=== PATIENT | female | born 1960 | race Caucasian/White ===

== ENCOUNTER 2016-05-21 18:03 | Observation (INO) ==
[2016-05-21] MEDS ORDERED: methylPREDNISolone 125 MG/2 ML VIAL IVP ONE (18:45)
[2016-05-21] MEDS ORDERED: Ipratropium/Albuterol Neb 3 ML IH ONE (18:45)
--- NOTE | 2016-05-21 19:05 | Emergency Department Note ---
Disposition Clinical Impression: Acute exacerbation of chronic obstructive pulmonary disease Disposition: Admitted As Inpatient Condition: Fair Referrals: Rebecca Nguyễn MD [Primary Care Provider] - Forms: ED Satisfaction Letter Time of Disposition: 21:46 SOB HPI - General Chief Complaint: ED Shortness of Breath/Dyspnea Stated Complaint: Nicole Time Seen by Provider: 05/21/16 18:45 Source: patient Mode of arrival: ambulatory Limitations: no limitations Nursing Notes Reviewed: Yes Vital Signs Reviewed: Yes - History of Present Illness 56-year-old female with history of COPD, does take oxygen at night occasionally and when she needs it. But is not oxygen dependent at baseline, he presents with shortness of breath and wheeze, she is diffuse wheezing bilaterally. Patient has her exposure to her son who was diagnosed with pneumonia 3 days ago , has been coughing. Patient states that she has been coughing and has not had productive cough with yellow, productive sputum throughout the day. Reports subjective fevers, worsening shortness of breath controlled with inhalers. Has required more oxygen than baseline Pt Subjective Complaint: shortness of breath Onset (ago): day(s) (3) Severity: mild Consistency/Duration: intermittent Improves with: nothing Worsens with: nothing Known history of: COPD Associated symptoms: Reports: fever, cough, wheezing, sputum production. Denies : chest pain, pain with inspiration Treatment prior to arrival: none - Related Data Home Medications Medication Instructions Recorded Confirmed Ibuprofen [Motrin] 800 mg PO Q8HR PRN #0 08/04/15 03/16/16 Albuterol Sulfate [Albuterol 2 puff IH Q4HR PRN 09/16/15 03/16/16 Inhaler] Calcium Carbonate [Calcium] 1,000 mg PO BID 09/16/15 03/16/16 FLUoxetine HCl [Prozac] 20 mg PO QAM 11/20/15 03/16/16 Famotidine [Pepcid] 40 mg PO BID 11/20/15 03/16/16 Fluticasone Propionate Nasal 50 mcg NS DAILY 11/20/15 03/16/16 [Flonase] Gabapentin [Neurontin] 800 mg PO Q6H 11/20/15 03/16/16 Insulin ASPART [Novolog Flexpen] 11 unit SQ BID PRN 11/20/15 03/16/16 Metformin HCl [Glucophage] 1,000 mg PO BID 11/20/15 03/16/16 Montelukast [Singulair] 10 mg PO HS 11/20/15 03/16/16 Pravastatin Sodium [Pravachol] 80 mg PO DAILY 11/20/15 03/16/16 Aspirin 81 mg PO DAILY 01/21/16 03/16/16 Tiotropium [Spiriva] 18 mcg IH DAILY 01/21/16 03/16/16 Fluticasone/Salmeterol [Advair 2 puff IH BID 03/16/16 03/16/16 500-50 Diskus] Ipratropium/Albuterol Neb [Duoneb] 3 ml IH TID 03/16/16 03/16/16 Oxygen 2 l .ROUTE AD 05/21/16 05/21/16 Previous Rx's Medication Instructions Recorded Alprazolam [Xanax 1 MG Tablet] 1 mg PO DAILY PRN #7 tablet 03/18/16 HYDROcodone/Acet 7.5/325 mg [Julian 1 tab PO TID PRN #20 tablet 03/18/16 7.5-325 mg] Naproxen [Naprosyn] 500 mg PO BID 10 Days 04/04/16 Allergies Allergy/AdvReac Type Severity Reaction Status Date / Time ketorolac [From Toradol] Allergy Hives Verified 05/21/16 21:35 Sulfa (Sulfonamide Allergy Hives Verified 05/21/16 21:35 Antibiotics) tramadol Allergy Hives Verified 05/21/16 21:35 venom-wasp Allergy Hives Verified 04/04/16 09:50 latex AdvReac Blister Verified 04/04/16 09:50 Review of Systems: A 14 point ROS was obtained and was negative except as per below or as documented in the HPI. Constitutional: Denies: fever, chills, weakness, weight change Eyes: Denies: eye pain, eye discharge, vision change ENT: Denies: ear pain, throat pain, hearing loss, epistaxis, congestion, Cardiovascular: Denies: chest pain, palpitations, dyspnea on exertion, edema, syncope Respiratory: cough, dyspnea, wheezes Denies:, hemoptysis, stridor Gastrointestinal: Denies: abdominal pain, nausea, vomiting. diarrhea, constipation, hematemesis, hematochezia Genitourinary: Denies: urgency, dysuria, frequency, hematuria Musculoskeletal: Denies: back pain, neck pain, arthralgia, myalgia Integumentary: Denies: rash, abrasion, lesions Neurological: Denies: headache, weakness, numbness, paresthesias, confusion, abnormal gait Psychiatric: Denies: anxiety, depression, suicidal thoughts, homicidal thoughts , Endocrine: Denies: fatigue Hematological/Lymphatic: Denies: easy bleeding, easy bruising Allergic/Immunologic: Denies: facial swelling, urticaria All systems ED: reviewed and negative except as stated. Past Medical History - Past Medical History Attestation: Yes The following information was validated with the patient. 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 CV: RRR, normal S1 and S2, no m/g/r, Pulses +2 Rad, +2 DP/PT Abdomen: Soft, NTND, no hepatosplenomegaly, no hernias, Negative Rovsing's sign , Negative Helms's sign Back: normal inspection, no tenderness to palpation, Negative CVA tenderness bilaterally Neuro: A&O3, CN II-XII grossly intact bilaterally, no motor or sensory deficits bilaterally, gait normal, GCS 15 [id number] Ext: normal inspection, symmetric Active and Passive ROM UE and LE bilaterally , no pedal edema bilaterally Psych: normal mood, normal affect Skin: No rashes, skin warm, dry, intact - General Limitations: no limitations General appearance: alert, in distress Course Course Narrative: 56-year-old female with shortness breath and wheezing, COPD workup, lactate blood cultures, basic labs chest x-ray reassessed - Reevaluation(s) Reevaluation #1: 56yof is essentially unremarkable, she does still have diffuse inspiratory and expiratory wheezes, her sat is 95% with 2 L Time: 21:00 Reevaluation #2: Admitted to for acute exacerbation of COPD, ABG drawn on patient, this was sent down for evaluation of ABG However she does not appear acidotic on her BMP. Time: 21:46 Vital Signs Temperature 98.2 F 05/21/16 18:04 Pulse Rate 110 05/21/16 18:04 Respiratory Rate 24 05/21/16 18:04 Blood Pressure 131/86 05/21/16 18:04 O2 Sat by Pulse Oximetry 96 05/21/16 18:04 Temperature 98.2 F 05/21/16 18:04 Pulse Rate 83 05/21/16 20:36 Respiratory Rate 20 05/21/16 20:36 Blood Pressure 109/68 05/21/16 20:36 O2 Sat by Pulse Oximetry 99 05/21/16 20:36 Oxygen Delivery Oxygen Delivery Nasal Cannula Shortness of Breath/Dyspnea - [facility] Narrative Medical decision making narrative: 56yof female shortness of breath and wheeze, still symptomatically and wheezy after her DuoNeb treatments 3 and slightly Medrol, admitted for acute COPD exacerbation - Differential Diagnosis Likely: acute exacerbation of chronic obstructive airways disease, congestive heart failure, pulmonary embolism - Medical Records Medical records reviewed: Yes I reviewed the patient's medical records. - Lab Data Lab results reviewed: Yes I reviewed the patient's lab results. Result diagrams: 05/21/16 18:57 05/21/16 18:57 Lab Results 05/21/16 05/21/16 05/21/16 Range/Units 18:57 18:57 18:57 WBC 11.0 (4.3-11.1) K/mcL RBC 4.96 (3.82-4.97) M/mcL Hgb 13.5 (11.5-15.4) g/dL Hct 41.1 (35.3-44.9) % MCV 82.9 L (83.0-100.0) fL MCH 27.2 L (28.0-33.3) pg MCHC 32.8 (31.6-35.5) g/dL RDW 15.5 H (11.5-14.5) % Plt Count 431 H (140-400) K/mcL MPV 10.4 (9.4-12.4) fL Immature Gran % 0.4 (0-4) % Seg Neutrophils % 52.3 % Lymphocytes % 26.8 % Monocytes % 11.8 % Eosinophils % 8.1 % Basophils % 0.6 % Neutrophils # 5.7 (1.6-8.9) K/mcL Lymphocytes # 2.9 (0.6-4.6) K/mcL Monocytes # 1.3 (0.0-1.3) K/mcL Eosinophils # 0.9 H (0.0-0.6) K/mcL Basophils # 0.1 (0.0-0.2) K/mcL PT 11.5 (9.4-12.1) Seconds INR 1.1 APTT 32.7 (26.0-36.0) Seconds Sodium 141 (136-145) mEq/L Potassium 3.4 L (3.5-4.5) mEq/L Chloride 107 (98-109) mEq/L Carbon Dioxide 25 (19-29) mEq/L BUN 13 (7-20) mg/dL Creatinine 0.66 (0.57-1.11) mg/dL Est GFR ( Amer) > 60 (> 60) Est GFR (Non-Af Amer) > 60 (> 60) BUN/Creatinine Ratio 20 (6-26) Glucose 77 (70-99) mg/dL Calculated Osmolality 291 (280-300) Lactic Acid (0.5-2.2) mmol/L Calcium 10.1 (8.6-10.8) mg/dL Troponin I (0-0.03) ng/mL B-Natriuretic Peptide (0-100) pg/mL 05/21/16 05/21/16 05/21/16 Range/Units 18:57 18:57 18:57 WBC (4.3-11.1) K/mcL RBC (3.82-4.97) M/mcL Hgb (11.5-15.4) g/dL Hct (35.3-44.9) % MCV (83.0-100.0) fL MCH (28.0-33.3) pg MCHC (31.6-35.5) g/dL RDW (11.5-14.5) % Plt Count (140-400) K/mcL MPV (9.4-12.4) fL Immature Gran % (0-4) % Seg Neutrophils % % Lymphocytes % % Monocytes % % Eosinophils % % Basophils % % Neutrophils # (1.6-8.9) K/mcL Lymphocytes # (0.6-4.6) K/mcL Monocytes # (0.0-1.3) K/mcL Eosinophils # (0.0-0.6) K/mcL Basophils # (0.0-0.2) K/mcL PT (9.4-12.1) Seconds INR APTT (26.0-36.0) Seconds Sodium (136-145) mEq/L Potassium (3.5-4.5) mEq/L Chloride (98-109) mEq/L Carbon Dioxide (19-29) mEq/L BUN (7-20) mg/dL Creatinine (0.57-1.11) mg/dL Est GFR ( Amer) (> 60) Est GFR (Non-Af Amer) (> 60) BUN/Creatinine Ratio (6-26) Glucose (70-99) mg/dL Calculated Osmolality (280-300) Lactic Acid 0.9 (0.5-2.2) mmol/L Calcium (8.6-10.8) mg/dL Troponin I 0.00 (0-0.03) ng/mL B-Natriuretic Peptide 10 (0-100) pg/mL - Radiology Data Radiology results reviewed: Yes I reviewed the patient's radiology results. Chest X-Ray 05/21/16 18:45 IMPRESSION: COPD with no acute finding in the chest. D/ / Coleman Lim MD / Coleman Lim MD Interpreting Provider: Coleman Lim MD - EKG Data EKG attestation: Yes I reviewed and interpreted this EKG. EKG shows normal: Reports: sinus rhythm (5 bpm ID [id number] QRS 76 QTc 405 ( elevations or depressions.) Rate: Reports: tachycardia Rhythm: Reports: NSR Shirley/QRS: Reports: normal Interpretation: Reports: no acute changes, unchanged when compared to prior tracing (date) - Core Measures AMI Core Measures Followed: No Measure Exclusions: not indicated
[2016-05-21 19:23] LABS: INR 1.1; Prothrombin Time 11.5 Seconds (9.4-12.1)
[2016-05-21 19:25] LABS: Activated Partial Thrombo Time 32.7 Seconds (26.0-36.0)
[2016-05-21 19:33] LABS: BUN/Creatinine Ratio 20 (6-26); Blood Urea Nitrogen 13 mg/dL (7-20); Calcium 10.1 mg/dL (8.6-10.8); Carbon Dioxide 25 mEq/L (19-29); Chloride 107 mEq/L (98-109); Glucose 77 mg/dL (70-99); Osmolality,Calculated 291 (280-300); Potassium 3.4 mEq/L (3.5-4.5); Sodium 141 mEq/L (136-145); eGFR For African Americans > 60 (> 60); eGFR For Non-African Americans > 60 (> 60)
--- NOTE | 2016-05-21 20:02 | Emergency Department Note ---
Disposition Clinical Impression: Acute exacerbation of chronic obstructive pulmonary disease Disposition: Admitted As Inpatient Condition: Fair General Adult HPI - General Chief complaint: ED Shortness of Breath/Dyspnea Stated complaint: Nicole Time Seen by Provider: 05/21/16 18:45 Source: patient Limitations: no limitations - History of Present Illness Pain Scale: 7 - Related Data Home Medications Medication Instructions Recorded Confirmed Ibuprofen [Motrin] 800 mg PO Q8HR PRN #0 08/04/15 05/21/16 Albuterol Sulfate [Albuterol 2 puff IH Q4HR PRN 09/16/15 05/21/16 Inhaler] Calcium Carbonate [Calcium] 1,000 mg PO BID 09/16/15 05/21/16 FLUoxetine HCl [Prozac] 40 mg PO QAM 11/20/15 05/21/16 Famotidine [Pepcid] 40 mg PO BID 11/20/15 05/21/16 Fluticasone Propionate Nasal 50 mcg NS DAILY 11/20/15 05/21/16 [Flonase] Gabapentin [Neurontin] 800 mg PO QID 11/20/15 05/21/16 Insulin ASPART [Novolog Flexpen] 2 - 11 unit SQ BID PRN 11/20/15 05/21/16 Metformin HCl [Glucophage] 1,000 mg PO BID 11/20/15 05/21/16 Montelukast [Singulair] 10 mg PO HS 11/20/15 05/21/16 Pravastatin Sodium [Pravachol] 80 mg PO DAILY 11/20/15 05/21/16 Aspirin 81 mg PO DAILY 01/21/16 05/21/16 Tiotropium [Spiriva] 18 mcg IH DAILY 01/21/16 05/21/16 Fluticasone/Salmeterol [Advair 2 puff IH BID 03/16/16 05/21/16 500-50 Diskus] Ipratropium/Albuterol Neb [Duoneb] 3 ml IH TID 03/16/16 05/21/16 Oxygen 2 l .ROUTE AD 05/21/16 05/21/16 Previous Rx's Medication Instructions Recorded Alprazolam [Xanax 1 MG Tablet] 1 mg PO DAILY PRN #7 tablet 03/18/16 HYDROcodone/Acet 7.5/325 mg [Winnie 1 tab PO TID PRN #20 tablet 03/18/16 7.5-325 mg] Naproxen [Naprosyn] 500 mg PO BID 10 Days 04/04/16 Allergies Allergy/AdvReac Type Severity Reaction Status Date / Time ketorolac [From Toradol] Allergy Hives Verified 05/21/16 21:35 Sulfa (Sulfonamide Allergy Hives Verified 05/21/16 21:35 Antibiotics) tramadol Allergy Hives Verified 05/21/16 21:35 venom-wasp Allergy Hives Verified 04/04/16 09:50 latex AdvReac Blister Verified 04/04/16 09:50 Past Medical History - Past Medical History Medical history: Reports: diabetes, GERD, hyperlipidemia, arthritis, osteoporosis, thyroid disease, migraine, kidney stones, COPD Surgical history: Reports: cataract, colectomy (partial), orthopedic, other ( cervical spine fusion) Psychiatric history: Reports: anxiety, depression 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 Baron. Patient presents with a complaint of shortness of breath. She has history of COPD. Coughing and short of breath and wheezing. When I see her she is already getting some breathing treatments but says she does not feel like she is getting a whole lot better. We will add steroids and we will get a chest x-ray. Disposition will be based on diagnostic results and reevaluation. Time: 20:02 Vital Signs Temperature 98.2 F 05/21/16 18:04 Pulse Rate 110 05/21/16 18:04 Respiratory Rate 24 05/21/16 18:04 Blood Pressure 131/86 05/21/16 18:04 O2 Sat by Pulse Oximetry 96 05/21/16 18:04 Temperature 97.9 F 05/23/16 07:55 Pulse Rate 105 05/23/16 07:55 Respiratory Rate 16 05/23/16 07:55 Blood Pressure 120/78 05/23/16 07:55 O2 Sat by Pulse Oximetry 95 05/23/16 07:55 Oxygen Delivery Oxygen Delivery Nasal Cannula Medical Decision Making - Lab Data Result diagrams: 05/22/16 03:14 05/23/16 04:30 Lab Results 05/21/16 05/21/16 05/21/16 Range/Units 18:57 18:57 18:57 WBC 11.0 (4.3-11.1) K/mcL RBC 4.96 (3.82-4.97) M/mcL Hgb 13.5 (11.5-15.4) g/dL Hct 41.1 (35.3-44.9) % MCV 82.9 L (83.0-100.0) fL MCH 27.2 L (28.0-33.3) pg MCHC 32.8 (31.6-35.5) g/dL RDW 15.5 H (11.5-14.5) % Plt Count 431 H (140-400) K/mcL MPV 10.4 (9.4-12.4) fL Immature Gran % 0.4 (0-4) % Seg Neutrophils % 52.3 % Lymphocytes % 26.8 % Monocytes % 11.8 % Eosinophils % 8.1 % Basophils % 0.6 % Neutrophils # 5.7 (1.6-8.9) K/mcL Lymphocytes # 2.9 (0.6-4.6) K/mcL Monocytes # 1.3 (0.0-1.3) K/mcL Eosinophils # 0.9 H (0.0-0.6) K/mcL Basophils # 0.1 (0.0-0.2) K/mcL PT 11.5 (9.4-12.1) Seconds INR 1.1 APTT 32.7 (26.0-36.0) Seconds Sodium 141 (136-145) mEq/L Potassium 3.4 L (3.5-4.5) mEq/L Chloride 107 (98-109) mEq/L Carbon Dioxide 25 (19-29) mEq/L BUN 13 (7-20) mg/dL Creatinine 0.66 (0.57-1.11) mg/dL Est GFR ( Amer) > 60 (> 60) Est GFR (Non-Af Amer) > 60 (> 60) BUN/Creatinine Ratio 20 (6-26) Glucose 77 (70-99) mg/dL Calculated Osmolality 291 (280-300) Lactic Acid (0.5-2.2) mmol/L Calcium 10.1 (8.6-10.8) mg/dL Troponin I (0-0.03) ng/mL B-Natriuretic Peptide (0-100) pg/mL 05/21/16 05/21/16 05/21/16 Range/Units 18:57 18:57 18:57 WBC (4.3-11.1) K/mcL RBC (3.82-4.97) M/mcL Hgb (11.5-15.4) g/dL Hct (35.3-44.9) % MCV (83.0-100.0) fL MCH (28.0-33.3) pg MCHC (31.6-35.5) g/dL RDW (11.5-14.5) % Plt Count (140-400) K/mcL MPV (9.4-12.4) fL Immature Gran % (0-4) % Seg Neutrophils % % Lymphocytes % % Monocytes % % Eosinophils % % Basophils % % Neutrophils # (1.6-8.9) K/mcL Lymphocytes # (0.6-4.6) K/mcL Monocytes # (0.0-1.3) K/mcL Eosinophils # (0.0-0.6) K/mcL Basophils # (0.0-0.2) K/mcL PT (9.4-12.1) Seconds INR APTT (26.0-36.0) Seconds Sodium (136-145) mEq/L Potassium (3.5-4.5) mEq/L Chloride (98-109) mEq/L Carbon Dioxide (19-29) mEq/L BUN (7-20) mg/dL Creatinine (0.57-1.11) mg/dL Est GFR ( Amer) (> 60) Est GFR (Non-Af Amer) (> 60) BUN/Creatinine Ratio (6-26) Glucose (70-99) mg/dL Calculated Osmolality (280-300) Lactic Acid 0.9 (0.5-2.2) mmol/L Calcium (8.6-10.8) mg/dL Troponin I 0.00 (0-0.03) ng/mL B-Natriuretic Peptide 10 (0-100) pg/mL Attestation Statement - Attestation Attestation: I, Dr. Rubi, examined this patient [id number] and my medical decision- making was reviewed with Dr. Baron, Resident Physician. I agree with the documented findings, disposition and treatment plan as described except to the extent set forth below. Please see my progress notes for details.
[2016-05-21 20:07] LABS: Basophils # 0.1 K/mcL (0.0-0.2); Basophils % 0.6 %; Eosinophils # 0.9 K/mcL (0.0-0.6); Eosinophils % 8.1 %; Hematocrit 41.1 % (35.3-44.9); Hemoglobin 13.5 g/dL (11.5-15.4); Immature Granulocytes % 0.4 % (0-4); Lymphocytes # 2.9 K/mcL (0.6-4.6); Lymphocytes % 26.8 %; Mean Corpuscular HGB Conc 32.8 g/dL (31.6-35.5); Mean Corpuscular Hemoglobin 27.2 pg (28.0-33.3); Mean Corpuscular Volume 82.9 fL (83.0-100.0); Mean Platelet Volume 10.4 fL (9.4-12.4); Monocytes # 1.3 K/mcL (0.0-1.3); Monocytes % 11.8 %; Neutrophils # 5.7 K/mcL (1.6-8.9); Platelet Count 431 K/mcL (140-400); Red Blood Count 4.96 M/mcL (3.82-4.97); Red Cell Distribution Width 15.5 % (11.5-14.5); Segmented Neutrophils % 52.3 %
[2016-05-21 21:44] LABS: ABG Base Excess 1.9 mEq/L (-2.0 to 3.0); ABG HCO3 26.6 mEQ/L (21-27); ABG Oxygen Saturation 97 % (95-98); ABG PCO2 41 mmHg (35-45); ABG PH 7.42 pH Units (7.32-7.45); ABG PO2 89 mmHg (85-104); ABG TCO2 27.9 mEq/L (20-26)
[2016-05-21 21:45] LABS: Blood Gas FiO2 28 %; Blood Gas Liter Flow 2 L/MIN
[2016-05-21] MEDS ORDERED: *HR* HYDROcodone/Acet 7.5/325 mg TABLET PO ONE (21:51)
[2016-05-21] MEDS ORDERED: Naloxone 0.4 MG/ML INJ IVP PRN (22:36)
[2016-05-21] MEDS ORDERED: Dextrose Gel 15 GM PO PRN ×2 (22:39)
[2016-05-21] MEDS ORDERED: *HR* Dextrose 50 % in Water (Syg) 50 ML SYRINGE IVP PRN (22:39)
[2016-05-21] MEDS ORDERED: D5% in Water 1,000 ML IV PRN (22:39)
--- NOTE | 2016-05-21 22:47 | Internal Med History&Physical ---
Date of Encounter: 05/21/16 Time of Encounter: 10:30 Assessment and Plan (1) Acute exacerbation of chronic obstructive pulmonary disease (COPD) Current visit: Yes Status: Acute Acute on chronic respiratory failure due to exacerbation of COPD. DuoNebs scheduled 4hrs Solumedrol 40mg Q12hr Will monitor off of antibiotics at this time as the patient is afebrile and does not have an elevated white count. Supplemental oxygen as needed. Smoking cessation counseling. Guaifenesin with codeine for cough. 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 of insulin (4) Chronic pain Current visit: Yes Status: Acute Continue home medications Qualifiers: Chronic pain type: other chronic pain Qualified Code(s): G89.29 - Other chronic pain (5) Tobacco abuse Current visit: Yes Status: Acute Smoking cessation counseling ordered (6) Hyperlipemia Current visit: No Status: Chronic Continue home medication Qualifiers: Hyperlipidemia type: unspecified Qualified Code(s): E78.5 - Hyperlipidemia , unspecified (7) DVT prophylaxis Current visit: No Status: Acute SQ Heparin GI Prophylaxis: omeprazole 20mg Internal Medicine - H&P: HPI Chief complaint: shortness of breath Admitted From: Emergency Dept Plans for Post Hospital Care: Home History of present illness: Ms. Taveras is a 56 year old female with PMH significant for COPD on home O2, DM type 2, GERD, HLD, osteoarthritis, osteoporosis, thyroid goiter, migraines, and kidney stones who presented to the emergency department for dyspnea. She states that her symptoms started 3 days ago shortly after she was in close contact with her son was diagnosed with an upper respiratory infection prior to their visit. She states that since then she has been having intermittent fevers and chills, headache, nausea, cough productive of yellow thick sputum, and feeling congested and tight in her chest. She reports having frequent hospitalizations due to COPD exacerbations, and this feels similar to previous episodes. She states that she uses oxygen at night, but does not use oxygen at baseline while home. She denies bowel and bladder symptoms. She reports she occasionally continues to smoke, and her last cigarette was on May 18. Past Med Surg Social Fam HX - Past Medical History Medical history: arthritis (osteoarthritis), COPD, diabetes, GERD, hyperlipidemia, kidney stones, migraine, osteoporosis, thyroid disease Psychiatric history: anxiety, depression - Past Surgical History Surgical History: cataract, colectomy (partial), orthopedic, other (cervical spine fusion) - Social History Smoking Status: Current some day smoker Smokeless Tobacco Status: No Alcohol use: none Drug use: none - Family History Mother Living Status: Hx Family Cardiac Disorders: Yes (CHF) Father Living Status: Hx Family Cardiac Disorders: Yes (DE) Brother Living Status: Hx Family Cancer: Yes (Colon) Sister Living Status: Hx Family Cardiac Disorders: Yes (CHF) Internal Medicine - H&P: Meds Ibuprofen [Motrin] 800 mg PO Q8HR PRN #0 08/04/15 [History] Albuterol Sulfate [Albuterol Inhaler] 2 puff IH Q4HR PRN 09/16/15 [History] Calcium Carbonate [Calcium] 1,000 mg PO BID 09/16/15 [History] FLUoxetine HCl [Prozac] 40 mg PO QAM 11/20/15 [History] Famotidine [Pepcid] 40 mg PO BID 11/20/15 [History] Fluticasone Propionate Nasal [Flonase] 50 mcg NS DAILY 11/20/15 [History] Gabapentin [Neurontin] 800 mg PO QID 11/20/15 [History] Insulin ASPART [Novolog Flexpen] 2 - 11 unit SQ BID PRN 11/20/15 [History] Metformin HCl [Glucophage] 1,000 mg PO BID 11/20/15 [History] Montelukast [Singulair] 10 mg PO HS 11/20/15 [History] Pravastatin Sodium [Pravachol] 80 mg PO DAILY 11/20/15 [History] Aspirin 81 mg PO DAILY 01/21/16 [History] Tiotropium [Spiriva] 18 mcg IH DAILY 01/21/16 [History] Fluticasone/Salmeterol [Advair 500-50 Diskus] 2 puff IH BID 03/16/16 [History] Ipratropium/Albuterol Neb [Duoneb] 3 ml IH TID 03/16/16 [History] Alprazolam [Xanax 1 MG Tablet] 1 mg PO DAILY PRN #7 tablet 03/18/16 [Rx] HYDROcodone/Acet 7.5/325 mg [[place] 7.5-325 mg] 1 tab PO TID PRN #20 tablet 03/18 [Rx] Naproxen [Naprosyn] 500 mg PO BID 10 Days 04/04/16 [Rx] Oxygen 2 l .ROUTE AD 05/21/16 [History] Allergies ketorolac [From Toradol] Allergy (Verified 05/21/16 21:35) Hives Sulfa (Sulfonamide Antibiotics) Allergy (Verified 05/21/16 21:35) Hives tramadol Allergy (Verified 05/21/16 21:35) Hives venom-wasp Allergy (Verified 04/04/16 09:50) Hives latex Adverse Reaction (Verified 04/04/16 09:50) Blister All Systems PM: A 10-system review of systems was performed and is negative for pertinent findings except as documented above in the HPI. - Constitutional Constitutional: chills, fever(s), no night sweats - EENT Eyes: no change in vision, no discharge, no pain, no photophobia Ears: no ear discharge, no ear pain, no tinnitus Nose, mouth and throat: nasal discharge (clear), no dysphagia, no neck pain, no sore throat - Cardiovascular Cardiovascular ROS IM: no chest pain, no diaphoresis, no lightheadedness, no palpitations, no syncope - Respiratory Respiratory: cough, dyspnea, wheezing, chest congestion, excessive phlegm production, pain with cough, no hemoptysis - Gastrointestinal Gastrointestinal: nausea, no abdominal pain, no diarrhea, no hematemesis, no hematochezia, no melena, no vomiting - Genitourinary Genitourinary: no change in urinary stream, no dysuria, no flank pain, no hematuria - Musculoskeletal Musculoskeletal ROS IM: no numbness, no tingling - Integumentary Integumentary IM: no rash, no unusual bruising - Neurological Neurological ROS: no confusion, no convulsions, no focal weakness, no numbness, no tingling, no tremor(s) - Hematologic/Lymphatic Hematologic/Lymphatic: no easy bruising - Constitutional Vitals: Temp Pulse Resp BP Pulse Ox 98.3 F 83 20 114/70 99 05/21/16 22:02 05/21/16 20:36 05/21/16 22:02 05/21/16 22:02 05/21/16 20:36 General appearance: Present: A&O X 3, pleasant, no acute distress - Head Head exam: Present: atraumatic, normocephalic - Eye Eye exam: Present: PERRL, conjuntiva pink, sclera anicteric Pupils: Present: PERRL - Neck Neck exam general surgery: Present: supple, trachea midline. Absent: lymphadenopathy - Respiratory Respiratory exam: Present: prolonged expiratory phase, wheezes (expiratory, with very mild inspiratory wheezing). Absent: accessory muscle use, rales, rhonchi - Cardiovascular Cardiovascular exam: Present: RRR, +S1, +S2. Absent: diastolic murmur, gallop, rubs, systolic murmur - GI/Abdominal GI/Abdominal exam: Present: normal bowel sounds, soft, no peritoneal signs. Absent: distended, tenderness - Extremities Exam Extremities exam: Present: warm, radial pulses palpable and symetrical. Absent : calf tenderness, cyanotic, pedal edema - Neurological Exam Neurological exam: Present: CN II-XII intact, oriented X3, no focal deficits. Absent: pronater drift, facial droop, speech deficit - Skin Skin exam: Present: dry, intact Internal Med - H&P Results - Labs CBC & Chem 7: 05/21/16 18:57 05/21/16 18:57 - ABG Interpretation ABG results: 05/21/16 21:39 ABG pH 7.42 ABG pCO2 41 ABG pO2 89 ABG HCO3 26.6 ABG Total CO2 27.9 H ABG O2 Saturation 97 ABG Base Excess 1.9 - Attending Attestation I examined this patient and my medical decision-making was reviewed with the NEUROPSYCHOLOGY DIVISION CHIEF/PA/Advanced Practice Nurse/Resident Physician. I agree with the documented findings, disposition and treatment plan as described except to the extent set forth below.
[2016-05-21] MEDS ORDERED: GuaiFENesin/Codeine Oral Soln 5 ML UDC PO PRN (22:55)
--- NOTE | 2016-05-21 22:56 | Event Note ---
Date of Encounter: 05/21/16 Time of Encounter: 22:51 Patient independently seen and examined at bedside. Sitting comfortably in bed, eating. States she feels significantly better since admission. Reports of having multiple family members that are everyday smokers due to which it has been hard for her to quit, however states she is adamant about quitting this time. Reports of productive cough with yellow sputum that has caused her severe chest discomfort. No other complains at this time. Case and management plan was reviewed with the Resident Physician. I agree with his listed H&P. 1. COPD with acute exacerbation continue bronchodilator and steroid support O2 supplementation as needed monitor O2 sat goal O2 sat 89-92% monitor off abx at this time, as patient has no clinical signs of infection 2. Cough will start guaifenesin/codeine 5ml PO q6h prn 3. Chronic pain continue home medications 4. DM monitor fingerstick and blood glucose hold oral antihyperglycemic agents at this time continue low dose insulin ss algorithm as needed 5. GI/DVT ppx 6. Smoking cessation counseling provided. patient willing to quit at this time and refuses nicotine replacement therapy.
[2016-05-21] MEDS: *HR* Heparin 5,000 UNIT/ML VIAL SQ SCH (22:57)
[2016-05-21] MEDS: Ipratropium/Albuterol Neb 3 ML IH SCH (23:09)
[2016-05-21] MEDS: Ibuprofen 800 MG TABLET PO PRN (23:31)
[2016-05-21] MEDS: ALPRAZolam 1 MG TABLET PO PRN (23:31)
[2016-05-22 01:35] LABS: Bilirubin,Urine Negative (Negative); Blood,Urine Negative (Negative); Clarity,Urine Clear (Clear); Color,Urine Yellow (Yellow); Glucose,Urine (UA) >=1000 mg/dL (Normal); Ketones,Urine Negative (Negative); Leukocyte Esterase,Urine Negative (Negative); Nitrite,Urine Negative (Negative); Protein,Urine Negative (Neg-Trace); Specific Gravity,Urine > 1.030 (1.010-1.025); Urobilinogen,Urine Normal (Normal)
[2016-05-22] MEDS: Ipratropium/Albuterol Neb 3 ML IH SCH ×5 (04:06→20:33)
[2016-05-22] MEDS: MethylPREDNISolone 40 MG/ML VIAL IVP SCH ×2 (04:28→17:05)
[2016-05-22] MEDS: *HR* HYDROcodone/Acet 7.5/325 mg TABLET PO PRN ×3 (04:29→20:31)
[2016-05-22 05:02] LABS: Hematocrit 37.7 % (35.3-44.9); Mean Corpuscular HGB Conc 31.8 g/dL (31.6-35.5); Mean Corpuscular Hemoglobin 26.4 pg (28.0-33.3); Mean Platelet Volume 10.6 fL (9.4-12.4); Platelet Count 385 K/mcL (140-400); Red Blood Count 4.54 M/mcL (3.82-4.97); Red Cell Distribution Width 15.3 % (11.5-14.5)
[2016-05-22] MEDS: Ibuprofen 800 MG TABLET PO PRN (08:18)
[2016-05-22] MEDS: Gabapentin 400 MG CAPSULE PO SCH ×4 (08:18→19:47)
[2016-05-22] MEDS: Aspirin 81 MG TAB.CHEW PO SCH (08:18)
[2016-05-22] MEDS: FLUoxetine 20 MG CAPSULE PO SCH (08:18)
[2016-05-22] MEDS: Insulin LISPRO 300 UNITS/3 ML VIAL SQ SCH ×3 (08:18→16:45)
[2016-05-22] MEDS: *HR* Heparin 5,000 UNIT/ML VIAL SQ SCH ×2 (08:19→16:18)
--- NOTE | 2016-05-22 12:05 | Electrocardiograph Report ---
[facility] Test Date: 2016-05-21 Pat Name: Lionel Taveras Department: 103 Room: 3B13 Gender: F Beauty Advisor: ROBERTA : 1960 Requested By: Zelalem Baron Order Number: [id number] Reading MD: Evgeny Valera MD Measurements Intervals [place] Rate: 95 P: 69 MS: 142 QRS: 64 QRSD: 76 T: 82 QT: 352 QTc: 405 Interpretive Statements SINUS RHYTHM Electronically Signed On 05-22-16 12:04:22 EST by Evgeny Valera MD
--- NOTE | 2016-05-22 13:43 | Internal Med Progress Note ---
Date of Encounter: 05/23/16 Time of Encounter: 10:30 - Assessment and plan (1) Acute exacerbation of chronic obstructive pulmonary disease (COPD) Current Visit: Yes Status: Acute Assessment and plan: Patient stating her aeration has improved but she has not back to her baseline. She was exposed to her son had an upper respiratory tract infection, will obtain a viral panel. Chest x-ray consistent with COPD. On examination, patient with fair aeration and wheezing throughout. ITS Impressions Chest X-Ray 05/21/16 18:45 IMPRESSION: COPD with no acute finding in the chest. D/ / Coleman Lim MD / Coleman Lim MD Interpreting Provider: Coleman Lim MD (2) Acute and chronic respiratory failure Current Visit: Yes Status: Acute Assessment and plan: Patient is on 2 L per nasal cannula at bedtime and as needed at home but not continuously. Continue supplemental oxygenation. Qualifiers: Respiratory failure complication: unspecified whether with hypoxia or hypercapnia Qualified Code(s): J96.20 - Acute and chronic respiratory failure , unspecified whether with hypoxia or hypercapnia (3) Dysuria Current Visit: Yes Status: Acute Assessment and plan: Patient stated she noticed hematuria accompanied by left flank pain and dysuria overnight. Urinalysis negative. We will repeat urinalysis. Patient does have a history of kidney stones. Her most recent abdominal imaging was in December 2015 was negative for acute processes. We will consider abdominal CT if repeat UA contains blood. (4) Hematuria Current Visit: Yes Status: Acute (5) Chronic pain Current Visit: Yes Status: Chronic Qualifiers: Chronic pain type: other chronic pain Qualified Code(s): G89.29 - Other chronic pain (6) Tobacco abuse Current Visit: Yes Status: Chronic Assessment and plan: Patient stating she has stopped smoking over the past week. She states that her son and his live with her but state that they no longer smoke inside the house. She is highly motivated to stop smoking. (7) DVT prophylaxis Current Visit: No Status: Acute Assessment and plan: Subcutaneous heparin (8) Hypokalemia Current Visit: No Status: Acute Assessment and plan: Mild, will trend and replace if indicated (9) Kidney stones Current Visit: No Status: Chronic Assessment and plan: Patient endorsing hematuria and left sided flank pain accompanied by dysuria that started overnight since admitted. Initial urinalysis unremarkable, we will repeat urinalysis and image abdomen if indicated (10) Anxiety Current Visit: No Status: Chronic (11) Diabetes mellitus Current Visit: No Status: Chronic Assessment and plan: Controlled at home with an A1c of 6.2% at the end of February. Continue sliding scale while admitted. 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 We will continue to trend and adjust medications as indicated. Qualifiers: Hypertension type: essential hypertension Qualified Code(s): I10 - Essential (primary) hypertension (13) Hypothyroidism Current Visit: No Status: Chronic Assessment and plan: TSH normal on 09/16/15 Qualifiers: Hypothyroidism type: unspecified Qualified Code(s): E03.9 - Hypothyroidism , unspecified - Subjective Interval history: Patient seen and examined. On examination, patient is sitting upright in bed watching television. Patient stating her breathing is better but she is not back to her baseline. Patient also concerned about obtaining her heartburn medications. Patient stating that her son and daughter with whom she lives have stop smoking inside the house. She also states that she has stopped smoking. She states she was exposed to people who had upper respiratory infections. Patient is also concerned that she PE HEENT red and feels as if she has another kidney stone. She is requesting for breakthrough pain medication. She also endorses dysuria and left-sided flank pain. - Constitutional Vitals: Temp Pulse Resp BP Pulse Ox 97.6 F 94 16 113/71 99 05/22/16 11:02 05/22/16 11:02 05/22/16 11:59 05/22/16 11:02 05/22/16 11:59 General appearance: Present: A&O X 3, pleasant, no acute distress, answers questions appropriately - Head Head exam: Present: atraumatic, normocephalic - Eye Eye exam: Present: PERRL, conjuntiva pink, sclera anicteric Pupils: Present: PERRL - Neck Neck exam general surgery: Present: supple, trachea midline. Absent: lymphadenopathy - Respiratory Respiratory exam: Present: accessory muscle use, decreased breath sounds, prolonged expiratory phase, wheezes. Absent: rales, respiratory distress, rhonchi - Cardiovascular Cardiovascular exam: Present: RRR, +S1, +S2. Absent: diastolic murmur, gallop, rubs, systolic murmur - GI/Abdominal GI/Abdominal exam: Present: normal bowel sounds, soft, no peritoneal signs. Absent: distended, tenderness - Extremities Exam Extremities exam: Present: warm, radial pulses palpable and symetrical. Absent : calf tenderness, cyanotic, pedal edema - Back Exam Back exam: Present: CVA tenderness (L). Absent: CVA tenderness (R) - Neurological Exam Neurological exam: Present: alert, CN II-XII intact, oriented X3, no focal deficits, strengths equal and symetr throughout. Absent: pronater drift, facial droop, speech deficit - Skin Skin exam: Present: dry, intact, pallor, warm Internal Medicine: Result - Labs CBC & Chem 7: 05/22/16 03:14 05/23/16 04:30 Labs: Short CBC 05/22/16 Range/Units 03:14 WBC 9.1 (4.3-11.1) K/mcL Hgb 12.0 D (11.5-15.4) g/dL Hct 37.7 (35.3-44.9) % Plt Count 385 (140-400) K/mcL Urine 05/22/16 Range/Units 00:18 Urine Color Yellow (Yellow) Urine Clarity Clear (Clear) Urine pH 6.0 (5.0-8.0) pH Units Ur Specific [place] > 1.030 H (1.010-1.025) Urine Protein Negative (Neg-Trace) mg/dL Urine Glucose (UA) >=1000 H (Normal) mg/dL - ABG Interpretation ABG results: ABG ABG pH 7.42 pH Units (7.32-7.45) 05/21/16 21:39 ABG pCO2 41 mmHg (35-45) 05/21/16 21:39 ABG pO2 89 mmHg (85-104) 05/21/16 21:39 ABG O2 Saturation 97 % (95-98) 05/21/16 21:39 PT/INR, D-dimer PT 11.5 Seconds (9.4-12.1) 05/21/16 18:57 Consult Discharge Plan - Plan Referrals: Rebecca Nguyễn MD [Primary Care Provider] -
[2016-05-22] MEDS: *HR* OxyCODONE Immed Rel 5 MG TABLET PO PRN ×2 (14:36→21:38)
[2016-05-22 15:35] LABS: Bilirubin,Urine Negative (Negative); Blood,Urine Negative (Negative); Clarity,Urine Clear (Clear); Color,Urine Yellow (Yellow); Glucose,Urine (UA) >=1000 mg/dL (Normal); Ketones,Urine Negative (Negative); Leukocyte Esterase,Urine Negative (Negative); Nitrite,Urine Negative (Negative); Protein,Urine Negative (Neg-Trace); Specific Gravity,Urine 1.029 (1.010-1.025); Urobilinogen,Urine Normal (Normal)
[2016-05-22 17:16] LABS: Adenovirus Not Detected (Not Detect); Bordetella Pertussis Not Detected (Not Detect); Chlamydophila pneumoniae Not Detected (Not Detect); Coronavirus 229E Not Detected (Not Detect); Coronavirus HKU1 Not Detected (Not Detect); Coronavirus NL63 Not Detected (Not Detect); Coronavirus OC43 Not Detected (Not Detect); Human Metapneumovirus Not Detected (Not Detect); Human Rhinovirus/Enterovirus Not Detected (Not Detect); Influenza A Subtype 2009 H1 Not Detected (Not Detect); Influenza A Untypeable Not Detected (Not Detect); Influenza B Not Detected (Not Detect); Mycoplasma pneumoniae Not Detected (Not Detect); Parainfluenza Virus 1 Not Detected (Not Detect); Parainfluenza Virus 2 Not Detected (Not Detect); Parainfluenza Virus 3 Not Detected (Not Detect); Parainfluenza Virus 4 Not Detected (Not Detect); Respiratory Syncytial Virus Not Detected (Not Detect)
[2016-05-22] MEDS: ALPRAZolam 1 MG TABLET PO PRN (19:55)
[2016-05-22] MEDS ORDERED: Insulin LISPRO 300 UNITS/3 ML VIAL SQ SCH (21:00)
[2016-05-23] MEDS: Ipratropium/Albuterol Neb 3 ML IH SCH ×4 (00:14→10:25)
[2016-05-23] MEDS: *HR* Heparin 5,000 UNIT/ML VIAL SQ SCH ×2 (00:19→08:42)
[2016-05-23] MEDS: *HR* HYDROcodone/Acet 7.5/325 mg TABLET PO PRN (03:31)
[2016-05-23] MEDS: *HR* OxyCODONE Immed Rel 5 MG TABLET PO PRN ×2 (05:01→08:44)
[2016-05-23] MEDS: MethylPREDNISolone 40 MG/ML VIAL IVP SCH (05:01)
[2016-05-23 05:18] LABS: BUN/Creatinine Ratio 21 (6-26); Blood Urea Nitrogen 15 mg/dL (7-20); Calcium 8.9 mg/dL (8.6-10.8); Carbon Dioxide 21 mEq/L (19-29); Chloride 107 mEq/L (98-109); Glucose 221 mg/dL (70-99); Osmolality,Calculated 292 (280-300); Potassium 4.2 mEq/L (3.5-4.5); Sodium 137 mEq/L (136-145); eGFR For African Americans > 60 (> 60); eGFR For Non-African Americans > 60 (> 60)
[2016-05-23 07:56] VITALS: BP 120/78
[2016-05-23] MEDS: FLUoxetine 20 MG CAPSULE PO SCH (08:45)
[2016-05-23] MEDS: Aspirin 81 MG TAB.CHEW PO SCH (08:46)
[2016-05-23] MEDS: Gabapentin 400 MG CAPSULE PO SCH (08:46)
[2016-05-23] MEDS: Insulin LISPRO 300 UNITS/3 ML VIAL SQ SCH (08:47)
--- NOTE | 2016-05-23 09:50 | Discharge Summary ---
Date of Encounter: 05/23/16 Time of Encounter: 09:00 - Discharge Diagnosis (1) Acute exacerbation of chronic obstructive pulmonary disease (COPD) Priority: Primary Status: Resolved Comments: Patient denies shortness of breath above her normal on day of discharge. Viral panel negative. Chest x-ray consistent with COPD without acute processes. Followup outpatient. 05/22/16 Patient stating her aeration has improved but she has not back to her baseline. She was exposed to her son had an upper respiratory tract infection, will obtain a viral panel. Chest x-ray consistent with COPD. On examination, patient with fair aeration and wheezing throughout. ITS Impressions Chest X-Ray 05/21/16 18:45 IMPRESSION: COPD with no acute finding in the chest. D/ / Coleman Lim MD / Coleman Lim MD Interpreting Provider: Coleman Lim MD (2) Acute and chronic respiratory failure Priority: Primary Status: Acute Comments: Patient is on 2 L per nasal cannula at bedtime and as needed at home but not continuously. She required continual supplemental oxygenation while admitted. On day of discharge, she qualify for supplemental oxygenation continuously Qualifiers: Respiratory failure complication: unspecified whether with hypoxia or hypercapnia Qualified Code(s): J96.20 - Acute and chronic respiratory failure , unspecified whether with hypoxia or hypercapnia (3) Dysuria Priority: Primary Status: Resolved (4) Hematuria Priority: Primary Status: Resolved Comments: Urinalysis negative 2 patient likely passed a small stone. No further complaints of flank or hematuria or dysuria (5) Chronic pain Priority: Secondary Status: Chronic Qualifiers: Chronic pain type: other chronic pain Qualified Code(s): G89.29 - Other chronic pain (6) Tobacco abuse Priority: Secondary Status: Chronic Comments: Patient stating she has stopped smoking over the past week. She states that her son and his live with her but state that they no longer smoke inside the house. She is highly motivated to stop smoking. She declined a nicotine replacement therapy upon discharge. (7) DVT prophylaxis Priority: Primary Status: Acute Comments: Subcutaneous heparin while admitted (8) Hypokalemia Priority: Primary Status: Resolved (9) Kidney stones Priority: Primary Status: Resolved (10) Anxiety Priority: Secondary Status: Chronic Comments: Patient requesting refill of her Xanax upon discharge,OARRS report checked out okay, will give one-week supply (11) Diabetes mellitus Priority: Secondary Status: Chronic Comments: Controlled at home with an A1c of 6.2% at the end of February. Recommend continued follow-up outpatient. Qualifiers: Diabetes mellitus type: type 2 Diabetes mellitus complication status: with neurologic complications Diabetes mellitus complication detail: with mononeuropathy Diabetes mellitus adjunct faculty for medical terminology insulin use: with adjunct faculty for medical terminology use Qualified Code(s): E11.41 - Type 2 diabetes mellitus with diabetic mononeuropathy; Z79.4 - retirement (current) use of insulin (12) Hypertension Priority: Secondary Status: Chronic Comments: Controlled. Recommend continued follow-up outpatient. Qualifiers: Hypertension type: essential hypertension Qualified Code(s): I10 - Essential (primary) hypertension (13) Hypothyroidism Priority: Secondary Status: Chronic Comments: TSH normal on 09/16/15 Qualifiers: Hypothyroidism type: unspecified Qualified Code(s): E03.9 - Hypothyroidism , unspecified - Discharge Medications Prescriptions: Alprazolam [Xanax 1 MG Tablet] 1 mg PO DAILY PRN #7 tablet PRN Reason: Anxiety Omeprazole [PriLOSEC] 20 mg PO BIDAC #60 capsule.dr Oxygen 2 l IN CONT #1 each PredniSONE 10 mg PO DAILY #41 tablet Home Medications: Ibuprofen [Motrin] 800 mg PO Q8HR PRN #0 08/04/15 [History] Albuterol Sulfate [Albuterol Inhaler] 2 puff IH Q4HR PRN 09/16/15 [History] Calcium Carbonate [Calcium] 1,000 mg PO BID 09/16/15 [History] FLUoxetine HCl [Prozac] 40 mg PO QAM 11/20/15 [History] Famotidine [Pepcid] 40 mg PO BID 11/20/15 [History] Fluticasone Propionate Nasal [Flonase] 50 mcg NS DAILY 11/20/15 [History] Gabapentin [Neurontin] 800 mg PO QID 11/20/15 [History] Insulin ASPART [Novolog Flexpen] 2 - 11 unit SQ BID PRN 11/20/15 [History] Metformin HCl [Glucophage] 1,000 mg PO BID 11/20/15 [History] Montelukast [Singulair] 10 mg PO HS 11/20/15 [History] Pravastatin Sodium [Pravachol] 80 mg PO DAILY 11/20/15 [History] Aspirin 81 mg PO DAILY 01/21/16 [History] Tiotropium [Spiriva] 18 mcg IH DAILY 01/21/16 [History] Fluticasone/Salmeterol [Advair 500-50 Diskus] 2 puff IH BID 03/16/16 [History] Ipratropium/Albuterol Neb [Duoneb] 3 ml IH TID 03/16/16 [History] HYDROcodone/Acet 7.5/325 mg [[place] 7.5-325 mg] 1 tab PO TID PRN #20 tablet 03/18 [Rx] Naproxen [Naprosyn] 500 mg PO BID 10 Days 04/04/16 [Rx] Alprazolam [Xanax 1 MG Tablet] 1 mg PO DAILY PRN #7 tablet 05/23/16 [Rx] Omeprazole [PriLOSEC] 20 mg PO BIDAC #60 capsule. 05/23/16 [Rx] Oxygen 2 l IN CONT #1 each 05/23/16 [Rx] PredniSONE 10 mg PO DAILY #41 tablet 05/23/16 [Rx] Allergies/Adverse Reactions: Allergies ketorolac [From Toradol] Allergy (Verified 05/21/16 21:35) Hives Sulfa (Sulfonamide Antibiotics) Allergy (Verified 05/21/16 21:35) Hives tramadol Allergy (Verified 05/21/16 21:35) Hives venom-wasp Allergy (Verified 04/04/16 09:50) Hives latex Adverse Reaction (Verified 04/04/16 09:50) Blister Date of admission: 05/21/16 21:34 Primary care physician: Rebecca Nguyễn MD Discharging clinician: Mali Gamez Anticipated date of discharge: 05/23/16 - Patient Status Disposition: Home, Self-Care Condition: Fair Functional capacity at discharge: independent ambulation Overall status at discharge: patient is back to baseline - Discharge Instructions Instructions: How to Stop Smoking (DC), Heart Healthy Diet (DC), Cigarette Smoking and Your Health (GEN), Diabetes Mellitus Type 2 in Adults (DC), Chronic Obstructive Pulmonary Disease (DC), Cholesterol and Your Health (GEN), Chronic Hypertension (DC) Follow Up With: Rebecca Nguyễn MD [Primary Care Provider] - 06/03/16 10:20 am (hospital Follow up) Additional Instructions: Follow-up with primary care provider in one to 2 weeks - Diet and Activity Activity: increase activity as tolerated Diet: regular diet Hospital course: Ms. Taveras is a 56 year old female with past medical history of COPD on 2 L per nasal cannula at home as needed and at night only, GERD, hyperlipidemia, kidney stones, tobacco abuse. Patient presented to emergency department chief complaint dyspnea 3 days. Patient stating she was exposed to her son who was diagnosed with upper respiratory tract infection. She states she also had intermittent fevers, chills, headache, nausea, productive cough, and a feeling of congestion and tightness in her chest. Chest x-ray in emergency department consistent with COPD. Patient was admitted to the hospitalist service for further evaluation and management. Patient was treated for COPD exacerbation. Viral panel swab negative. Blood cultures negative. Patient was admitted and observed over the course of 3 days and on day of discharge, she denied shortness of breath above her norm. On the first day of her admission, patient complained of hematuria, dysuria, and left flank pain. Urinalysis was repeated twice and no hematuria or signs of infection were present. Patient likely passed a small renal stone. On day of discharge, her hematuria, dysuria, and flank pain had resolved. At home, she is on oxygen as needed and throughout this admission, patient required oxygen continuously. On day of discharge, she qualified for oxygen continuously. She was discharged home in stable condition with close outpatient follow-up recommended. Of note, patient stating she stopped smoking last week and states that her son and his who live with her have also stopped smoking inside the house. ITS Impressions Chest X-Ray 05/21/16 18:45 IMPRESSION: COPD with no acute finding in the chest. D/ / Coleman Lim MD / Coleman Lim MD Interpreting Provider: Coleman Lim MD - Time Spent with Patient Total time spent providing and/or coordinating discharge services: - Constitutional Vitals: Temp Pulse Resp BP Pulse Ox 97.9 F 105 20 120/78 98 05/23/16 07:55 05/23/16 07:55 05/23/16 08:06 05/23/16 07:55 05/23/16 08:06 General appearance: Present: A&O X 3, pleasant, no acute distress, answers questions appropriately - Head Head exam: Present: atraumatic, normocephalic - Eye Eye exam: Present: PERRL, conjuntiva pink, sclera anicteric Pupils: Present: PERRL - Neck Neck exam general surgery: Present: supple, trachea midline. Absent: lymphadenopathy - Respiratory Respiratory exam: Present: decreased breath sounds, prolonged expiratory phase, wheezes. Absent: accessory muscle use, rales, respiratory distress, rhonchi - Cardiovascular Cardiovascular exam: Present: RRR, +S1, +S2. Absent: diastolic murmur, gallop, rubs, systolic murmur - GI/Abdominal GI/Abdominal exam: Present: normal bowel sounds, soft, no peritoneal signs. Absent: distended, tenderness - Extremities Exam Extremities exam: Present: warm, radial pulses palpable and symetrical. Absent : calf tenderness, cyanotic, pedal edema - Neurological Exam Neurological exam: Present: alert, CN II-XII intact, normal gait, oriented X3, no focal deficits, strengths equal and symetr throughout. Absent: pronater drift, facial droop, speech deficit - Skin Skin exam: Present: dry, intact, normal color, warm
== END 2016-05-23 10:58 | disposition home or self-care (01) ==
LOC: EMEROO 18:03 → 3BNU 18:03
PROVIDERS: ADMIT Internal Medicine; ATTEND Nurse Practitioner Family

== ENCOUNTER 2016-07-08 17:09 | Inpatient (IN) ==
--- NOTE | 2016-07-08 18:35 | Emergency Department Note ---
Disposition Clinical Impression: Acute exacerbation of chronic obstructive pulmonary disease, Failure of outpatient treatment Disposition: Admitted As Inpatient Condition: Good Referrals: Rebecca Nguyễn MD [Primary Care Provider] - Forms: ED Satisfaction Letter URI/Sore Throat HPI - General Chief Complaint: ED Shortness of Breath/Dyspnea Stated Complaint: "worsensing bronchitis" Time Seen by Provider: 07/08/16 18:09 Source: patient Limitations: no limitations Nursing Notes Reviewed: Yes Vital Signs Reviewed: Yes - History of Present Illness HPI Narrative: Is a 56-year-old female with a history of OPD is coming for increased wheezing and shortness of breath. The patient was seen here about 8 days ago was placed on Levaquin she finished that yesterday and also a tapering steroid dose is here for increased cough shortness of breath and wheezing. She states despite the medical treatment she was prescribed she still having difficulty breathing she does have smokers at home she smoking in early May of this year Pt Subjective Complaint: cough Associated symptoms: Denies: fever Treatments prior to arrival: antibiotics, other healthcare encounter for this problem - Related Data Home Medications Medication Instructions Recorded Confirmed Ibuprofen [Motrin] 800 mg PO Q8HR PRN #0 08/04/15 06/26/16 Albuterol Sulfate [Albuterol 2 puff IH Q4HR PRN 09/16/15 06/26/16 Inhaler] Calcium Carbonate [Calcium] 1,000 mg PO BID 09/16/15 06/26/16 FLUoxetine HCl [Prozac] 40 mg PO QAM 11/20/15 06/26/16 Famotidine [Pepcid] 40 mg PO BID 11/20/15 06/26/16 Fluticasone Propionate Nasal 1 spray NS DAILY 11/20/15 06/26/16 [Flonase] Gabapentin [Neurontin] 800 mg PO QID 11/20/15 06/26/16 Metformin HCl [Glucophage] 1,000 mg PO BID 11/20/15 06/26/16 Montelukast [Singulair] 10 mg PO HS 11/20/15 06/26/16 Pravastatin Sodium [Pravachol] 80 mg PO DAILY 11/20/15 06/26/16 Aspirin 81 mg PO DAILY 01/21/16 06/26/16 Tiotropium [Spiriva] 1 cap IH DAILY 01/21/16 06/26/16 Fluticasone/Salmeterol [Advair 2 puff IH BID 03/16/16 06/26/16 500-50 Diskus] Ipratropium/Albuterol Neb [Duoneb] 3 ml IH TID 03/16/16 06/26/16 Cyclobenzaprine [Flexeril] 10 mg PO TID 06/26/16 06/26/16 Polyethylene Glycol 3350 [MiraLAX] 17 gm PO DAILY 06/26/16 06/26/16 Propranolol HCl 40 mg PO BID 06/26/16 06/26/16 Varenicline Tartrate [Chantix] 1 mg PO BID 06/26/16 06/26/16 Zolpidem [Ambien] 5 mg PO HS 06/26/16 06/26/16 Previous Rx's Medication Instructions Recorded HYDROcodone/Acet 7.5/325 mg [[place] 1 tab PO TID PRN #20 tablet 03/18/16 7.5-325 mg] Naproxen [Naprosyn] 500 mg PO BID 10 Days 04/04/16 Alprazolam [Xanax 1 MG Tablet] 1 mg PO DAILY PRN #7 tablet 05/23/16 Omeprazole [PriLOSEC] 20 mg PO BIDAC #60 capsule. 05/23/16 Oxygen 2 l IN CONT #1 each 05/23/16 Levofloxacin [Levaquin] 500 mg PO DAILY #7 tablet 06/30/16 PredniSONE [Prednisone] 50 mg PO DAILY #5 tablet 06/30/16 Allergies Allergy/AdvReac Type Severity Reaction Status Date / Time ketorolac [From Toradol] Allergy Hives Verified 06/30/16 20:01 Sulfa (Sulfonamide Allergy Hives Verified 06/30/16 20:01 Antibiotics) tramadol Allergy Hives Verified 06/30/16 20:01 venom-wasp Allergy Hives Verified 06/30/16 20:01 latex AdvReac Blister Verified 06/30/16 20:01 All systems ED: reviewed and negative except as stated. Constitutional: Denies: fever, chills Respiratory: Reports: cough, wheezes Gastrointestinal: Denies: nausea, vomiting URI PMH - Past Medical History Medical history: Reports: diabetes, GERD, hyperlipidemia, arthritis, osteoporosis, thyroid disease, kidney stones, COPD Surgical history: Reports: colectomy, orthopedic, other Psychiatric history: Reports: anxiety, depression [employer] history: Reports: non-contributory, bilateral tubal ligation - Social History Smoking Status: Former smoker Alcohol use: Reports: none Drug use: Reports: none Physical Exam - General Limitations: no limitations General appearance: alert, in no apparent distress - Head Head exam: atraumatic, normocephalic, normal inspection - Eye Eye exam: Present: normal appearance, PERRL, EOMI - Expanded Eye Exam Pupils: Left: reactive - ENT ENT exam: normal exam, normal oropharynx, mucous membranes moist - Expanded ENT Exam External ear exam: Present: normal external inspection Mouth exam: Present: normal external inspection Teeth exam: Present: normal inspection Throat exam: Present: normal inspection - Neck Neck exam: Present: normal inspection, full ROM, trachea midline - Chest Chest inspection: Present: normal inspection, symmetric chest wall rise - Respiratory Respiratory exam: Present: wheezes (Scattered mild tachypnea), prolonged expiratory phase - Cardiovascular Cardiovascular exam: Present: regular rate, normal rhythm, normal heart sounds - Abdominal Exam Abdominal exam: Present: soft, Non-Tender. Absent: tenderness, distention, guarding, rebound, rigidity - Extremities Exam Extremities exam: Present: normal inspection, full ROM. Absent: tenderness, pedal edema - Expanded Upper Extremity Exam Shoulder exam: Present: normal inspection, full ROM Arm exam: Present: normal inspection, full ROM Elbow exam: Present: normal inspection, full ROM Forearm/Wrist exam: Present: normal inspection, full ROM Hand exam: Present: normal inspection, full ROM Vascular exam: Normal: capillary refill, radial pulse - Expanded Lower Extremity Exam Hip/Pelvis exam: Present: normal inspection, full ROM Upper leg exam: Present: normal inspection, full ROM Knee exam: Present: normal inspection, full ROM Lower leg exam: Present: normal inspection, full ROM Ankle exam: Present: normal inspection, full ROM Foot/toe exam: Present: normal inspection, full ROM Neurovascular/Tendon exam: Absent: motor deficit, sensory deficit, tendon deficit - Back Exam Back exam: Present: normal inspection, full ROM. Absent: tenderness - Neurological Exam Neurological exam: Present: alert, oriented X3 - Expanded Neurological Exam Patient oriented to: Present: person, place, time Coma Scale Eye Opening: Spontaneous Coma Scale Motor Response: Obeys Commands Coma Scale Verbal Response: Oriented Coma Scale Total: 15 - Psychiatric Psychiatric exam: Present: normal affect, normal mood - Skin Skin exam: Present: warm, dry, intact, normal color Course Vital Signs Temperature 98.2 F 07/08/16 17:19 Pulse Rate 93 07/08/16 17:19 Respiratory Rate 18 07/08/16 17:19 Blood Pressure 91/66 07/08/16 17:19 O2 Sat by Pulse Oximetry 97 07/08/16 17:19 Temperature 98.2 F 07/08/16 17:19 Pulse Rate 93 07/08/16 17:19 Respiratory Rate 20 07/08/16 19:42 Blood Pressure 91/66 07/08/16 17:19 O2 Sat by Pulse Oximetry 99 07/08/16 19:42 Oxygen Delivery Oxygen Delivery Room Air Upper Respiratory Infection - MDM Narrative Medical decision making narrative: dr. harley accepts - Differential Diagnosis Differential Diagnosis: Likely: upper respiratory infection, bronchitis, influenza, pneumonia - Medical Records Medical records reviewed: Yes I reviewed the patient's medical records. - Lab Data Lab results reviewed: Yes I reviewed the patient's lab results. Result diagrams: 07/08/16 18:55 07/08/16 18:55 Lab Results 07/08/16 07/08/16 07/08/16 Range/Units 18:55 18:55 18:55 WBC 13.6 H (4.3-11.1) K/mcL RBC 4.37 (3.82-4.97) M/mcL Hgb 11.6 (11.5-15.4) g/dL Hct 37.2 (35.3-44.9) % MCV 85.1 (83.0-100.0) fL MCH 26.5 L (28.0-33.3) pg MCHC 31.2 L (31.6-35.5) g/dL RDW 15.2 H (11.5-14.5) % Plt Count 370 (140-400) K/mcL MPV 10.3 (9.4-12.4) fL Immature Gran % 0.7 (0-4) % Seg Neutrophils % 42.3 % Lymphocytes % 38.6 % Monocytes % 8.6 % Eosinophils % 9.6 % Basophils % 0.2 % Neutrophils # 5.8 (1.6-8.9) K/mcL Lymphocytes # 5.2 H (0.6-4.6) K/mcL Monocytes # 1.2 (0.0-1.3) K/mcL Eosinophils # 1.3 H (0.0-0.6) K/mcL Basophils # 0.0 (0.0-0.2) K/mcL Immature Plt Fraction 6.0 (1.1-6.1) % PT 9.9 (9.4-12.1) Seconds INR 0.9 APTT 27.1 (26.0-36.0) Seconds Sodium 136 (136-145) mEq/L Potassium 3.8 (3.5-4.5) mEq/L Chloride 101 (98-109) mEq/L Carbon Dioxide 26 (19-29) mEq/L BUN 11 (7-20) mg/dL Creatinine 0.69 (0.57-1.11) mg/dL Est GFR ( Amer) > 60 (> 60) Est GFR (Non-Af Amer) > 60 (> 60) BUN/Creatinine Ratio 16 (6-26) Glucose 122 H (70-99) mg/dL Calculated Osmolality 283 (280-300) Calcium 9.2 (8.6-10.8) mg/dL Troponin I (0-0.03) ng/mL B-Natriuretic Peptide (0-100) pg/mL 07/08/16 07/08/16 Range/Units 18:55 18:55 WBC (4.3-11.1) K/mcL RBC (3.82-4.97) M/mcL Hgb (11.5-15.4) g/dL Hct (35.3-44.9) % MCV (83.0-100.0) fL MCH (28.0-33.3) pg MCHC (31.6-35.5) g/dL RDW (11.5-14.5) % Plt Count (140-400) K/mcL MPV (9.4-12.4) fL Immature Gran % (0-4) % Seg Neutrophils % % Lymphocytes % % Monocytes % % Eosinophils % % Basophils % % Neutrophils # (1.6-8.9) K/mcL Lymphocytes # (0.6-4.6) K/mcL Monocytes # (0.0-1.3) K/mcL Eosinophils # (0.0-0.6) K/mcL Basophils # (0.0-0.2) K/mcL Immature Plt Fraction (1.1-6.1) % PT (9.4-12.1) Seconds INR APTT (26.0-36.0) Seconds Sodium (136-145) mEq/L Potassium (3.5-4.5) mEq/L Chloride (98-109) mEq/L Carbon Dioxide (19-29) mEq/L BUN (7-20) mg/dL Creatinine (0.57-1.11) mg/dL Est GFR ( Amer) (> 60) Est GFR (Non-Af Amer) (> 60) BUN/Creatinine Ratio (6-26) Glucose (70-99) mg/dL Calculated Osmolality (280-300) Calcium (8.6-10.8) mg/dL Troponin I 0.00 (0-0.03) ng/mL B-Natriuretic Peptide 21 (0-100) pg/mL - Radiology Data Radiology results reviewed: Yes I reviewed the patient's radiology results.
[2016-07-08] MEDS ORDERED: Ipratropium/Albuterol Neb 3 ML IH ONE (18:37)
[2016-07-08] MEDS ORDERED: methylPREDNISolone 125 MG/2 ML VIAL IVP ONE (18:37)
[2016-07-08 19:05] LABS: Basophils % 0.2 %; Eosinophils # 1.3 K/mcL (0.0-0.6); Eosinophils % 9.6 %; Hematocrit 37.2 % (35.3-44.9); Hemoglobin 11.6 g/dL (11.5-15.4); Immature Granulocytes % 0.7 % (0-4); Lymphocytes # 5.2 K/mcL (0.6-4.6); Lymphocytes % 38.6 %; Mean Corpuscular HGB Conc 31.2 g/dL (31.6-35.5); Mean Corpuscular Hemoglobin 26.5 pg (28.0-33.3); Mean Corpuscular Volume 85.1 fL (83.0-100.0); Mean Platelet Volume 10.3 fL (9.4-12.4); Monocytes # 1.2 K/mcL (0.0-1.3); Monocytes % 8.6 %; Neutrophils # 5.8 K/mcL (1.6-8.9); Platelet Count 370 K/mcL (140-400); Red Blood Count 4.37 M/mcL (3.82-4.97); Red Cell Distribution Width 15.2 % (11.5-14.5); Segmented Neutrophils % 42.3 %
[2016-07-08 19:09] LABS: INR 0.9; Prothrombin Time 9.9 Seconds (9.4-12.1)
[2016-07-08 19:11] LABS: Activated Partial Thrombo Time 27.1 Seconds (26.0-36.0)
[2016-07-08 19:17] LABS: BUN/Creatinine Ratio 16 (6-26); Blood Urea Nitrogen 11 mg/dL (7-20); Calcium 9.2 mg/dL (8.6-10.8); Carbon Dioxide 26 mEq/L (19-29); Chloride 101 mEq/L (98-109); Glucose 122 mg/dL (70-99); Osmolality,Calculated 283 (280-300); Potassium 3.8 mEq/L (3.5-4.5); Sodium 136 mEq/L (136-145); eGFR For African Americans > 60 (> 60); eGFR For Non-African Americans > 60 (> 60)
[2016-07-08] MEDS ORDERED: *HR* HYDROcodone/Acet 5/325 mg TABLET PO ONE (19:53)
[2016-07-08] MEDS ORDERED: *HR* Enoxaparin 40 MG/0.4 ML SYRINGE SQ ONE (21:44)
[2016-07-08] MEDS ORDERED: Naloxone 0.4 MG/ML INJ IVP PRN (21:44)
[2016-07-08] MEDS ORDERED: Pantoprazole 40 MG VIAL IVP STA (21:44)
[2016-07-08] MEDS ORDERED: *HR* Promethazine 25 MG/ML VIAL IVP PRN (21:44)
[2016-07-08] MEDS ORDERED: Benzonatate 100 MG CAPSULE PO PRN (21:44)
[2016-07-08] MEDS ORDERED: Acetaminophen 325 MG TABLET PO PRN (21:44)
[2016-07-08] MEDS ORDERED: Dextromethorphan Polistrx(12h) 30 MG/5 ML UDC PO STA (21:44)
[2016-07-08] MEDS ORDERED: Albuterol 2.5 MG/3 ML NEBULIZER IH PRN (21:44)
[2016-07-08] MEDS ORDERED: *HR* OxyCODONE Immed Rel 5 MG TABLET PO PRN (21:44)
[2016-07-08] MEDS ORDERED: Dextrose Gel 15 GM PO PRN ×2 (22:04)
[2016-07-08] MEDS ORDERED: D5% in Water 1,000 ML IV PRN (22:04)
[2016-07-08] MEDS ORDERED: *HR* Dextrose 50 % in Water (Syg) 50 ML SYRINGE IVP PRN (22:04)
--- NOTE | 2016-07-08 22:10 | Internal Med History&Physical ---
Date of Encounter: 07/08/16 Time of Encounter: 22:00 Assessment and Plan (1) SIRS (systemic inflammatory response syndrome) Status: Acute . (2) Acute exacerbation of chronic obstructive pulmonary disease Status: Acute . (3) Failure of outpatient treatment Status: Acute . (4) Acute and chronic respiratory failure Status: Acute . Qualifiers: Respiratory failure complication: unspecified whether with hypoxia or hypercapnia Qualified Code(s): J96.20 - Acute and chronic respiratory failure , unspecified whether with hypoxia or hypercapnia (5) Acute bronchitis and bronchiolitis Status: Acute . (6) COPD (chronic obstructive pulmonary disease) Status: Chronic . Qualifiers: COPD type: COPD with acute exacerbation Qualified Code(s): J44.1 - Chronic obstructive pulmonary disease with (acute) exacerbation (7) Chronic pain syndrome Status: Chronic . (8) Chronic respiratory failure with hypoxia Status: Chronic . (9) Constipation Status: Chronic . Qualifiers: Constipation type: drug induced constipation Qualified Code(s): K59.03 - Drug induced constipation (10) DJD (degenerative joint disease) of cervical spine Status: Chronic . Qualifiers: Spinal osteoarthritis complication: unspecified spinal osteoarthritis Qualified Code(s): M47.812 - Spondylosis without myelopathy or radiculopathy, cervical region (11) Depression Status: Chronic . Qualifiers: Depression Type: unspecified Qualified Code(s): F32.9 - Major depressive disorder, single episode, unspecified (12) Dyslipidemia Status: Chronic . (13) Hypertension Status: Chronic . Qualifiers: Hypertension type: essential hypertension Qualified Code(s): I10 - Essential (primary) hypertension (14) Hypothyroidism Status: Chronic . Qualifiers: Hypothyroidism type: acquired Qualified Code(s): E03.9 - Hypothyroidism, unspecified (15) Insulin dependent diabetes mellitus Status: Chronic . Internal Medicine - H&P: HPI Chief complaint: Difficulty breathing Admitted From: Emergency Dept Plans for Post Hospital Care: Home History of present illness: Ms. Taveras is a 56 year old female with history significant for type 2 diabetes mellitus, COPD, chronic respiratory failure, home oxygen dependent, H/O asthma, hypertension, dyslipidemia, diverticulosis coli, DDD spine, peripheral neuropathy, osteoarthritis, osteoporosis, vitamin D deficiency, nephrolithiasis, , chronic low back pain, lumbar radiculopathy, generalized anxiety/panic attacks , KRUPA, former [id number] The patient was visited and interviewed and examined. Patient was admitted to [facility] via the emergency department she presented with complaints of increasing difficulty breathing. She reported an 8-10 day period of increasing audible wheezing shortness of breath after been placed on outpatient therapy with Levaquin and tapering steroid dose pack. In spite of this course of therapy she continued to have increased intermittent cough shortness of breath and wheezing. He reports being abstinent from smoking for approximately 3 months but still losing some smoking household. She acknowledges is well seasonal allergen. His fevers chills or sweats. Findings in the ED: Temperature 98 pulse 93 respirations 18-20. BP 91/66. O2 saturation 97-99% on room air. WBC 13.6 hemoglobin 11.6. Platelet 370,000. RDW 15.2. Differential showed an increase in lymphocytes and eosinophils. PT 9.9 INR 0.9. PTT 27.1. Metabolic panel normal. BUN 11 creatinine 0.69. Glucose 122 osmolality 283. Troponin 0.00. BNP 21. Portable chest x-ray demonstrated no active cardiopulmonary process. Preliminary impression suggest acute on chronic COPD exacerbation, bronchitis- bronchiolitis. Systemic inflammatory response syndrome criteria are met at the time of admission. He should presents further risk for acute clinical decline and morbidity given her presenting chief complaint, findings and comorbid conditions. Workup and treatment will proceed comprehensively. Cumulative laboratory and radiographic data base was reviewed, considered and discussed. Pertinent ancillary medical records including ECW and PCI documentation was reviewed and considered. Given the patient's presenting concerns, past medical history, clinical findings and symptoms, she is admitted at this time will undergo further evaluation and disposition. Orders were written as per the computerized physician new order clerk system.......................................................................... .................... Consultative opinions will be sought as clinical circumstances justify. Pain management needs will be addressed. Laboratory and radiographic data base will be updated as appropriate. Studies include: Cultures of blood urine and sputum, pt/inr, aptt, cardiac injury panel , BNP, troponin metabolic and hematologic panel, magnesium, phosphorus, ionized calcium, thyroid panel, lipid profile, A1c, C-peptide, CRP, sedimentation rate, respiratory infection profile, respiratory virus panel, blood gas, UA, UDS, lactic acid, serologies, etc. Precautions: Aspiration, fall, delirium protocol/surveillance initiated. Telemetry with continuous hemodynamic monitoring and pulse oximetry initiated. Empiric antibody coverage: Intravenous Rocephin and azithromycin pending culture data. Special studies: CT of the chest, chest x-ray, telemetry, EKG. Pulmonary toilet: Incentive spirometry, aerosol bronchodilator, mucolytic, antitussive, supplemental oxygen. Corticosteroid therapy. CPAP/BiPAP supplemental oxygen delivery. Aerosol Mucomyst therapy. Fluid and electrolyte repletion efforts will proceed. Careful attention to fluid balance and renal recovery will be emphasized. Avoidance of nephrotoxic exposure and adverse drug drug interaction in the setting of impaired renal function will be monitored closely. Acute coronary syndrome protocol/surveillance initiated. DVT and PUD prophylaxis initiated: PPI therapy, intermittent pneumatic cuffs. Subcutaneous heparin. Early ambulation will be encouraged. Immunization updates recommended. Influenza and pneumococcal vaccinations as part of ongoing preventative healthcare recommendations strongly recommended. Smoking cessation counseling briefly addressed. Patient is a former recent smoker. Advanced care directive discussion briefly addressed. Patient does not declare any healthcare restrictions at this time. Cardiovascular risk appraisal and cardiovascular risk reduction efforts will be emphasized. Physical and occupational therapy may be counseled to evaluate patient's functional capacity and progress mobility if her circumstances justify. Sliding scale insulin coverage, ADA dietary restraint and schedule an as-needed basis fingerstick glucose assessments were initiated. Nutrition/diabetes education counseling may be considered as circumstances justify. Outpatient medication schedules will be reviewed, confirmed and facilitated as appropriate. Reconciliation of home treatments including adjustments, substitutions and reintroduction into the treatment regimen will address necessary maintenance therapies for chronic pre-existing medical conditions. Plan of care has been reviewed and discussed in detail with the patient. Questions addressed. Hospital course dictated by clinical findings, treatment response and potential consultative interventions. Patient is at risk for further acute clinical decline and morbidity due to her presenting chief complaints, findings and comorbid conditions. Condition is serious. Prognosis is guarded. CODE STATUS is full. Past Med Surg Social Fam HX - Past Medical History Source: old records reviewed Medical history: arthritis, asthma, COPD (Obstructive sleep apnea.), diabetes, GERD, GI bleed (Colonic polyps. History of diverticulitis.), hyperlipidemia, kidney stones, migraine, osteoporosis (Vitamin D deficiency.), thyroid disease ( Thyroid goiter.), other (Salivary gland duct obst. History of bowel obstruction. Constipation. Diverticulosis coli. Allergic rhinitis.) Psychiatric history: anxiety, depression, panic disorder, other - Past Surgical History Surgical History: cataract, colectomy (Descending colectomy partial. Colonoscopyx2.), orthopedic, other (Reduction internal fixation left), other (C5 -C6 cervical fusion. Tubal ligation.) - Social History Smoking Status: Former smoker Smokeless Tobacco Status: No Alcohol use: none Drug use: none Occupational status: unemployed Current living situation: Home - Independent Activity Level: Independent ambulation, Mostly sedentary Recent Out of Country Travel Within the Last 8 Weeks: No Exposure or Possible Exposure to Illness During Travel: No - Family History Mother Living Status: Hx Family Cardiac Disorders: Yes (CHF) Father Living Status: Hx Family Cardiac Disorders: Yes ([place]) Brother Living Status: Hx Family Cancer: Yes (Colon) Sister Living Status: Hx Family Cardiac Disorders: Yes (CHF) Internal Medicine - H&P: Meds Albuterol Sulfate [Albuterol Inhaler] 2 puff IH Q4HR PRN 09/16/15 [History] Calcium Carbonate [Calcium] 1,000 mg PO BID 09/16/15 [History] FLUoxetine HCl [Prozac] 40 mg PO QAM 11/20/15 [History] Famotidine [Pepcid] 40 mg PO BID 11/20/15 [History] Fluticasone Propionate Nasal [Flonase] 1 spray NS DAILY 11/20/15 [History] Gabapentin [Neurontin] 800 mg PO QID 11/20/15 [History] Metformin HCl [Glucophage] 1,000 mg PO BID 11/20/15 [History] Montelukast [Singulair] 10 mg PO HS 11/20/15 [History] Pravastatin Sodium [Pravachol] 80 mg PO DAILY 11/20/15 [History] Aspirin 81 mg PO DAILY 01/21/16 [History] Tiotropium [Spiriva] 1 cap IH DAILY 01/21/16 [History] Fluticasone/Salmeterol [Advair 500-50 Diskus] 2 puff IH BID 03/16/16 [History] Ipratropium/Albuterol Neb [Duoneb] 3 ml IH TID 03/16/16 [History] Alprazolam [Xanax 1 MG Tablet] 1 mg PO DAILY PRN #7 tablet 05/23/16 [Rx] Omeprazole [PriLOSEC] 20 mg PO BIDAC #60 capsule. 05/23/16 [Rx] Oxygen 2 l IN CONT #1 each 05/23/16 [Rx] Cyclobenzaprine [Flexeril] 10 mg PO TID 06/26/16 [History] Polyethylene Glycol 3350 [MiraLAX] 17 gm PO DAILY 06/26/16 [History] Propranolol HCl 40 mg PO BID 06/26/16 [History] Varenicline Tartrate [Chantix] 1 mg PO BID 06/26/16 [History] Zolpidem [Ambien] 5 mg PO HS 06/26/16 [History] HYDROcodone/Acet 10/325 mg [Ramah 10-325 mg] 1 tab PO TID PRN 07/08/16 [History] Amoxicillin/Clavulanate [Augmentin] 875 mg PO BIDWM #14 tablet 07/09/16 [Rx] GuaiFENesin ER [Mucinex] 1,200 mg PO BID #20 tbbp.12hr 07/09/16 [Rx] PredniSONE 20 mg PO DAILY #20 tablet 07/09/16 [Rx] Naproxen [Naprosyn] 500 mg PO BID PRN #14 tablet 07/13/16 [Rx] Allergies ketorolac [From Toradol] Allergy (Verified 07/13/16 10:01) Hives Sulfa (Sulfonamide Antibiotics) Allergy (Verified 07/13/16 10:01) Hives tramadol Allergy (Verified 07/13/16 10:01) Hives venom-wasp Allergy (Verified 07/13/16 10:01) Hives latex Adverse Reaction (Verified 07/13/16 10:01) Blister All Systems PM: A 10-system review of systems was performed and is negative for pertinent findings except as documented above in the HPI. - Constitutional Constitutional: as per HPI, malaise, no chills, no fever(s), no night sweats - EENT Eyes: as per HPI, no change in vision, no discharge, no pain, no photophobia Ears: as per HPI, no ear discharge, no ear pain, no tinnitus Nose, mouth and throat: as per HPI, nasal congestion, post-nasal drip, sinus pressure, no dysphagia, no nasal discharge, no neck pain, no sore throat - Cardiovascular Cardiovascular ROS IM: as per HPI, no chest pain, no diaphoresis, no dyspnea, no lightheadedness, no palpitations, no syncope - Respiratory Respiratory: as per HPI, cough, dyspnea, dyspnea on exertion, wheezing, chest congestion, no excessive phlegm production - Gastrointestinal Gastrointestinal: as per HPI, no abdominal pain, no diarrhea, no hematemesis, no hematochezia, no melena, no nausea, no vomiting - Genitourinary Genitourinary: as per HPI, no change in urinary stream, no dysuria, no flank pain, no hematuria - Musculoskeletal Musculoskeletal ROS IM: as per HPI, no numbness, no tingling - Integumentary Integumentary IM: as per HPI, no rash, no unusual bruising - Neurological Neurological ROS: as per HPI, no confusion, no convulsions, no focal weakness, no numbness, no tingling, no tremor(s) - Psychiatric Psychiatric: as per HPI - Endocrine Endocrine IM: as per HPI - Hematologic/Lymphatic Hematologic/Lymphatic: as per HPI, no easy bruising - Allergic/Immunologic Allergic/Immunologic: as per HPI - Constitutional Vitals: Temp Pulse Resp BP Pulse Ox 98.0 F 90 18 94/62 96 07/08/16 21:52 07/08/16 21:52 07/08/16 21:52 07/08/16 21:52 07/08/16 21:52 General appearance: Present: mild distress, A&O X 3, obese, answers questions appropriately - Head Head exam: Present: atraumatic, normocephalic - Eye Eye exam: Present: EOMI, PERRL, conjuntiva pink, sclera anicteric Pupils: Present: normal accommodation, PERRL - ENT ENT exam: Present: mucous membranes moist, normal oropharynx - Neck Neck exam general surgery: Present: supple, trachea midline. Absent: lymphadenopathy - Respiratory Respiratory exam: Present: accessory muscle use, chest wall tenderness, decreased breath sounds, prolonged expiratory phase, rhonchi, wheezes. Absent: rales - Cardiovascular Cardiovascular exam: Present: distant heart sounds, RRR, +S1, +S2. Absent: diastolic murmur, gallop, rubs, systolic murmur - GI/Abdominal GI/Abdominal exam: Present: normal bowel sounds, soft, no peritoneal signs. Absent: distended, tenderness - Extremities Exam Extremities exam: Present: full ROM, warm, radial pulses palpable and symetrical. Absent: calf tenderness, cyanotic, pedal edema - Neurological Exam Neurological exam: Present: alert, CN II-XII intact, oriented X3, no focal deficits. Absent: pronater drift, facial droop, speech deficit - Psychiatric Psychiatric exam: Present: normal affect, normal mood - Skin Skin exam: Present: dry, intact, warm. Absent: petechiae, rash, urticaria, vesicles Internal Med - H&P Results - Labs CBC & Chem 7: 07/09/16 05:08 07/09/16 05:08 - Impressions Vital Signs Temp Pulse Resp BP Pulse Ox 07/08/16 21:52 98.0 F 90 18 94/62 96 07/08/16 21:04 98.2 F 18 102/71 07/08/16 19:42 20 99 07/08/16 17:19 98.2 F 93 18 91/66 97 Intake and Output 07/08/16 07/08/16 07/08/16 07:59 15:59 23:59 Intake Total 0 / 0 Output Total 0 / 0 Balance 0 / 0 Intake: Oral 0 / 0 Output: Urine 0 / 0 Other: Weight 65.77 kg Patient Weight 07/08/16 23:59 Weight 65.77 kg Short CBC 07/08/16 Range/Units 18:55 WBC 13.6 H (4.3-11.1) K/mcL Hgb 11.6 (11.5-15.4) g/dL Hct 37.2 (35.3-44.9) % Plt Count 370 (140-400) K/mcL Neutrophils # 5.8 (1.6-8.9) K/mcL BMP 07/08/16 Range/Units 18:55 Sodium 136 (136-145) mEq/L Potassium 3.8 (3.5-4.5) mEq/L Chloride 101 (98-109) mEq/L Carbon Dioxide 26 (19-29) mEq/L BUN 11 (7-20) mg/dL Creatinine 0.69 (0.57-1.11) mg/dL Glucose 122 H (70-99) mg/dL Calcium 9.2 (8.6-10.8) mg/dL Cardiac Enzymes 07/08/16 Range/Units 18:55 Troponin I 0.00 (0-0.03) ng/mL Abnormal lab results WBC 13.6 K/mcL (4.3-11.1) H 07/08/16 18:55 MCH 26.5 pg (28.0-33.3) L 07/08/16 18:55 MCHC 31.2 g/dL (31.6-35.5) L 07/08/16 18:55 RDW 15.2 % (11.5-14.5) H 07/08/16 18:55 Lymphocytes # 5.2 K/mcL (0.6-4.6) H 07/08/16 18:55 Eosinophils # 1.3 K/mcL (0.0-0.6) H 07/08/16 18:55 Glucose 122 mg/dL (70-99) H 07/08/16 18:55 Allergies Allergy/AdvReac Type Severity Reaction Status Date / Time ketorolac [From Toradol] Allergy Hives Verified 06/30/16 20:01 Sulfa (Sulfonamide Allergy Hives Verified 06/30/16 20:01 Antibiotics) tramadol Allergy Hives Verified 06/30/16 20:01 venom-wasp Allergy Hives Verified 06/30/16 20:01 latex AdvReac Blister Verified 06/30/16 20:01 Allergies Allergy/AdvReac Type Severity Reaction Status Date / Time ketorolac [From Toradol] Allergy Hives Verified 06/30/16 20:01 Sulfa (Sulfonamide Allergy Hives Verified 06/30/16 20:01 Antibiotics) tramadol Allergy Hives Verified 06/30/16 20:01 venom-wasp Allergy Hives Verified 06/30/16 20:01 latex AdvReac Blister Verified 06/30/16 20:01 Laboratory Results WBC 13.6 K/mcL (4.3-11.1) H 07/08/16 18:55 RBC 4.37 M/mcL (3.82-4.97) 07/08/16 18:55 Hgb 11.6 g/dL (11.5-15.4) 07/08/16 18:55 Hct 37.2 % (35.3-44.9) 07/08/16 18:55 MCV 85.1 fL (83.0-100.0) 07/08/16 18:55 MCH 26.5 pg (28.0-33.3) L 07/08/16 18:55 MCHC 31.2 g/dL (31.6-35.5) L 07/08/16 18:55 RDW 15.2 % (11.5-14.5) H 07/08/16 18:55 Plt Count 370 K/mcL (140-400) 07/08/16 18:55 MPV 10.3 fL (9.4-12.4) 07/08/16 18:55 Immature Gran % 0.7 % (0-4) 07/08/16 18:55 Seg Neutrophils % 42.3 % 07/08/16 18:55 Lymphocytes % 38.6 % 07/08/16 18:55 Monocytes % 8.6 % 07/08/16 18:55 Eosinophils % 9.6 % 07/08/16 18:55 Basophils % 0.2 % 07/08/16 18:55 Neutrophils # 5.8 K/mcL (1.6-8.9) 07/08/16 18:55 Lymphocytes # 5.2 K/mcL (0.6-4.6) H 07/08/16 18:55 Monocytes # 1.2 K/mcL (0.0-1.3) 07/08/16 18:55 Eosinophils # 1.3 K/mcL (0.0-0.6) H 07/08/16 18:55 Basophils # 0.0 K/mcL (0.0-0.2) 07/08/16 18:55 Immature Plt Fraction 6.0 % (1.1-6.1) 07/08/16 18:55 PT 9.9 Seconds (9.4-12.1) 07/08/16 18:55 INR 0.9 07/08/16 18:55 APTT 27.1 Seconds (26.0-36.0) 07/08/16 18:55 Sodium 136 mEq/L (136-145) 07/08/16 18:55 Potassium 3.8 mEq/L (3.5-4.5) 07/08/16 18:55 Chloride 101 mEq/L (98-109) 07/08/16 18:55 Carbon Dioxide 26 mEq/L (19-29) 07/08/16 18:55 BUN 11 mg/dL (7-20) 07/08/16 18:55 Creatinine 0.69 mg/dL (0.57-1.11) 07/08/16 18:55 Est GFR ( Amer) > 60 (> 60) 07/08/16 18:55 Est GFR (Non-Af Amer) > 60 (> 60) 07/08/16 18:55 BUN/Creatinine Ratio 16 (6-26) 07/08/16 18:55 Glucose 122 mg/dL (70-99) H 07/08/16 18:55 Calculated Osmolality 283 (280-300) 07/08/16 18:55 Calcium 9.2 mg/dL (8.6-10.8) 07/08/16 18:55 Troponin I 0.00 ng/mL (0-0.03) 07/08/16 18:55 B-Natriuretic Peptide 21 pg/mL (0-100) 07/08/16 18:55 Impressions Chest X-Ray 07/08/16 18:37 IMPRESSION: No acute cardiac or pulmonary disease. D/ / Alfonzo Denise MD / Alfonzo Denise MD Interpreting Provider: Alfonzo Denise MD Allergies ketorolac [From Toradol] Allergy (Verified 06/30/16 20:01) Hives Sulfa (Sulfonamide Antibiotics) Allergy (Verified 06/30/16 20:01) Hives tramadol Allergy (Verified 06/30/16 20:01) Hives venom-wasp Allergy (Verified 06/30/16 20:01) Hives latex Adverse Reaction (Verified 06/30/16 20:01) Blister Home Medications Medication Instructions Recorded Confirmed Type Albuterol Sulfate [Albuterol 2 puff IH Q4HR PRN 09/16/15 07/08/16 History Inhaler] Calcium Carbonate [Calcium] 1,000 mg PO BID 09/16/15 07/08/16 History FLUoxetine HCl [Prozac] 40 mg PO QAM 07/04/16 02/20/17 History Famotidine [Pepcid] 40 mg PO BID 11/20/15 07/08/16 History Fluticasone Propionate Nasal 1 spray NS DAILY 11/20/15 07/08/16 History [Flonase] Gabapentin [Neurontin] 800 mg PO QID 11/20/15 07/08/16 History Metformin HCl [Glucophage] 1,000 mg PO BID 11/20/15 07/08/16 History Montelukast [Singulair] 10 mg PO HS 11/20/15 07/08/16 History Pravastatin Sodium [Pravachol] 80 mg PO DAILY 11/20/15 07/08/16 History Aspirin 81 mg PO DAILY 01/21/16 07/08/16 History Tiotropium [Spiriva] 1 cap IH DAILY 01/21/16 07/08/16 History Fluticasone/Salmeterol [Advair 2 puff IH BID 03/16/16 07/08/16 History 500-50 Diskus] Ipratropium/Albuterol Neb [Duoneb] 3 ml IH TID 03/16/16 07/08/16 History Cyclobenzaprine [Flexeril] 10 mg PO TID 06/26/16 07/08/16 History Polyethylene Glycol 3350 [MiraLAX] 17 gm PO DAILY 06/26/16 07/08/16 History Propranolol HCl 40 mg PO BID 06/26/16 07/08/16 History Varenicline Tartrate [Chantix] 1 mg PO BID 06/26/16 07/08/16 History Zolpidem [Ambien] 5 mg PO HS 06/26/16 07/08/16 History HYDROcodone/Acet 10/325 mg [Ramah 1 tab PO TID PRN 07/08/16 07/08/16 History 10-325 mg] I & O 07/05/16 07/06/16 07/07/16 07/08/16 23:59 23:59 23:59 23:59 Intake Total 0 / 0 Output Total 0 / 0 Balance 0 / 0 Weight 65.77 kg Intake: Oral 0 / 0 Output: Urine 0 / 0 Medications Acetaminophen (Tylenol) 650 mg PO Q6HR PRN PRN Reason: Mild Pain (1-3) Stop: 01/07/17 21:45 Albuterol Sulfate (Proventil Neb) 2.5 mg IH Q2H PRN PRN Reason: Shortness Of Breath/Wheezing Stop: 01/07/17 21:45 Albuterol/Ipratropium (Duoneb) 3 ml IH QIDR [facility] Stop: 01/07/17 23:01 Alprazolam (Xanax) 1 mg PO DAILY PRN; Protocol PRN Reason: Anxiety Stop: 01/07/17 21:57 Aspirin (Aspirin) 81 mg PO DAILY [facility] Stop: 01/08/17 09:01 Benzonatate (Tessalon) 100 mg PO TID PRN PRN Reason: Cough Stop: 01/07/17 21:45 Benzonatate (Tessalon) 100 mg PO TID [facility] Stop: 01/07/17 21:46 Cyclobenzaprine HCl (Flexeril) 10 mg PO TID [facility] Stop: 01/08/17 09:01 Dextromethorphan Polistirix (Delsym 12-Hr) 30 mg PO Q12HR PRN PRN Reason: Cough Stop: 01/08/17 09:01 Dextrose/Water (Dextrose 50% (Syg)) 25 ml IVP AD PRN PRN Reason: Hypoglycemia Stop: 01/07/17 22:05 Docusate Sodium (Colace) 100 mg PO BID PRN PRN Reason: Constipation Stop: 01/07/17 21:45 Enoxaparin Sodium (Lovenox) 40 mg SQ 0700 [facility] PRN Reason: Protocol Stop: 01/08/17 07:01 Famotidine (Pepcid) 20 mg PO BID [facility] Stop: 01/08/17 09:01 Fluoxetine HCl (Prozac) 40 mg PO QAM [facility] PRN Reason: Protocol Stop: 01/08/17 09:01 Fluticasone Propionate (Flonase) 50 mcg NS DAILY [facility] PRN Reason: Protocol Stop: 01/08/17 09:01 Glucagon (Glucagen) 1 mg IM ONCE PRN PRN Reason: Hypoglycemia Stop: 01/07/17 22:05 Glucose (Gluctose) 15 gm PO ONCE PRN PRN Reason: Hypoglycemia Stop: 01/07/17 22:05 Glucose (Gluctose) 30 gm PO ONCE PRN PRN Reason: Hypoglycemia Stop: 01/07/17 22:05 Guaifenesin (Mucinex) 1,200 mg PO BID [facility] Stop: 01/07/17 21:46 Sodium Chloride (0.9 % Sodium Chloride) 1,000 mls @ 50 mls/hr IVC .Q20H [facility] Stop: 01/07/17 21:46 Azithromycin 500 mg/ Dextrose 250 mls @ 252 mls/hr IVPB Q24H [facility] Stop: 01/07/17 22:01 Ceftriaxone Sodium 1,000 mg/ (Dextrose) 100 mls @ 200 mls/hr IVPB BID [facility] Stop: 01/07/17 22:01 Dextrose (Dextrose 5%) 1,000 mls @ 100 mls/hr IV CONT PRN PRN Reason: HYPOGLYCEMIA Stop: 01/07/17 22:05 Insulin Detemir (Levemir) 16 unit 0.25 unit/kg (16 unit) SQ HS [facility] Stop: 01/08/17 21:01 Insulin Human Lispro (Humalog) 0 units SQ HS [facility] PRN Reason: Protocol Stop: 01/07/17 22:16 Insulin Human Lispro (Humalog) 0 units SQ TIDAC [facility] PRN Reason: Protocol Stop: 01/08/17 07:31 Methylprednisolone (Solu-Medrol) 40 mg IVP Q6HR [facility] Stop: 01/08/17 00:01 Montelukast Sodium (Singulair) 10 mg PO HS [facility] Stop: 01/08/17 21:01 Morphine Sulfate (Morphine Sulfate) 2 mg IVP Q4HR PRN PRN Reason: Severe Pain (7-10) Stop: 01/07/17 21:45 Naloxone HCl (Narcan) 0.4 mg IVP Q2MIN PRN PRN Reason: Opioid Reversal Stop: 01/07/17 21:45 Non-Formulary Medication (Gabapentin [Neurontin]) 800 mg PO QID [facility] Stop: 01/08/17 09:01 Non-Formulary Medication (Pravastatin Sodium [Pravachol]) 80 mg PO DAILY [facility] Stop: 01/08/17 09:01 Non-Formulary Medication (Propranolol Hcl [Propranolol Hcl]) 40 mg PO BID [facility] Stop: 01/08/17 09:01 Oxycodone HCl (Roxicodone) 10 mg PO Q6HR PRN PRN Reason: Moderate Pain (4-6) Stop: 01/07/17 21:45 Polyethylene Glycol (Miralax) 17 gm PO DAILY [facility] Stop: 01/08/17 09:01 Promethazine HCl (Phenergan) 12.5 mg IVP Q6HR PRN PRN Reason: Nausea And Vomiting Stop: 01/07/17 21:45 Zolpidem Tartrate (Ambien) 5 mg PO HS [facility] PRN Reason: Protocol Stop: 01/08/17 21:01 Discontinued Medications Acetaminophen/Hydrocodone Bitart (Ramah 5-325 Mg) 2 tab PO ONCE ONE Stop: 07/08/16 19:54 Last Admin: 07/08/16 20:00 Dose: 2 tab Albuterol/Ipratropium (Duoneb) 6 ml IH ONCE ONE Stop: 07/08/16 18:38 Last Admin: 07/08/16 19:42 Dose: 6 ml Dextromethorphan Polistirix (Delsym 12-Hr) 60 mg PO NOW STA Stop: 07/08/16 21:45 Enoxaparin Sodium (Lovenox) 40 mg SQ ONCE ONE PRN Reason: Protocol Stop: 07/08/16 21:45 Methylprednisolone (Solu-Medrol) 125 mg IVP ONCE ONE Stop: 07/08/16 18:38 Last Admin: 07/08/16 18:58 Dose: 125 mg Pantoprazole Sodium (Protonix) 40 mg IVP NOW STA Stop: 07/08/16 21:45 Nursing Notes 07/08/16 20:14 Transport Report by Sean Bowens Date: 07/08/16 Transport Method: Stretcher ketorolac [From Toradol] Allergy (Verified 06/30/16 20:01) Hives Sulfa (Sulfonamide Antibiotics) Allergy (Verified 06/30/16 20:01) Hives tramadol Allergy (Verified 06/30/16 20:01) Hives venom-wasp Allergy (Verified 06/30/16 20:01) Hives latex Adverse Reaction (Verified 06/30/16 20:01) Blister Resuscitation Status 07/08/16 18:37 ECG 12 lead ECG [ECG] Stat Mode Of Transportation: Stretcher Reason For Exam: dyspnea Exam Performed At:: [facility] Oxygen: 2 Mental Status: Fall Risk: Isolation: Nurse Required for Transport: No ___ Yes Limb Restrictions: No ___ Yes Behavioral issue/Risk for Elopement: No ___ Yes Telemetry Room Notification: Destination: MRI XRAY STRESS ULTRASOUND CT DIALYSIS ENDO OTHER: Depart Time: Nurse: Transporter: Arrive Time: Received by: ___ Return Time: Nurse: Transporter: ] Initialized on 07/08/16 20:14 - END OF NOTE Orders 07/08/16 18:37 12 lead ECG assessment [RC] NOW Cardiac monitoring [RC] .ONCE Saline lock [RC] .ONCE Supplemental oxygen titration [RC] .ONCE Physician Instructions: Vital Signs Assessment [RC] PROTOCOL XR chest 1V portable [XR] Stat Mode Of Transportation: Stretcher Reason For Exam: dyspnea Exam Performed At:: [facility] Additional Notes/Special Instructions: 31 LAB @1855..KM Ipratropium/Albuterol Neb [Duoneb] 6 ml IH ONCE ONE MethylPREDNISolone [Solu-MEDROL] 125 mg IVP ONCE ONE ECG 12 lead ECG [ECG] Stat Mode Of Transportation: Stretcher Reason For Exam: dyspnea Exam Performed At:: [facility] 07/08/16 18:55 Activated Partial Thrombo Time [COAG] Stat Comment: Specimen: Send someone from the department to collect B-Type Natriuretic Peptide Stat Comment: Specimen: Send someone from the department to collect Basic Metabolic Panel Stat Comment: Specimen: Send someone from the department to collect Complete Blood Count [HEME] Stat Comment: Specimen: Send someone from the department to collect Culture,Blood [BC] Stat Comment: GINGER Source: Peripheral Venipuncture Quantity: 2 Specimen: Send someone from the department to collect Specimen Description: Prothrombin Time INR [COAG] Stat Comment: Specimen: Send someone from the department to collect Troponin I Stat Comment: Specimen: Send someone from the department to collect 07/08/16 19:53 HYDROcodone/Acet 5/325 mg [Ramah 5-325 mg] 2 tab PO ONCE ONE 07/08/16 21:44 Apply anti-embolic stockings [RC] .NOW Aspiration precautions [RC] .WITH MEALS Cardiac monitoring [RC] .ONCE Falls precautions (John-Gutiérrez [RC] q12h Head of bed elevation [RC] .ONCE Incentive Spirometry [RC] .6 TIMES PER HR WHILE AWAKE Peripheral IV [RC] CONT Placement to Observation Routine Physician Instructions: Reason for Visit: Difficulty breathing Is VTE Prophylaxis Indicated?: Yes Vital Signs Assessment [RC] Q4H Consult to Nurse Navigator [CONS] Routine Comment: C-Reactive Protein Stat Comment: Specimen: Send someone from the department to collect Erythrocyte Sedimentation Rate [HEME] Stat Comment: Specimen: Send someone from the department to collect Lactic Acid ([facility] Only) Stat Comment: Specimen: Send someone from the department to collect Legionella Antigen [RM] Stat Comment: GINGER Source: Urine,Clean Catch Specimen: Send someone from the department to collect Specimen Description: Respiratory Infection Panel [MOLMIC] Stat Specimen: Send someone from the department to collect S. Pneumoniae Antigen [RM] Stat Comment: GINGER Source: Urine,Clean Catch Specimen: Send someone from the department to collect Specimen Description: VBG Ionized Calcium Stat Comment: Specimen: Send someone from the department to collect Viral Culture,Respiratory [] Stat Comment: [facility] Source: Nasopharyngeal Specimen: Send someone from the department to collect Specimen Description: Acetaminophen [Tylenol] 650 mg PO Q6HR PRN Albuterol Neb [Proventil Neb] 2.5 mg IH Q2H PRN Benzonatate [Tessalon] 100 mg PO TID PRN Dextromethorphan Polistrx(12h) [Delsym 12-HR] 60 mg PO NOW STA Docusate [Colace] 100 mg PO BID PRN Enoxaparin [Lovenox] 40 mg SQ ONCE ONE Morphine [Morphine Sulfate] 2 mg IVP Q4HR PRN Naloxone [Narcan] 0.4 mg IVP Q2MIN PRN OxyCODONE Immed Rel [Roxicodone] 10 mg PO Q6HR PRN Pantoprazole [Protonix] 40 mg IVP NOW STA Promethazine [Phenergan] 12.5 mg IVP Q6HR PRN Resuscitation Status: Active [RES] Routine Comment: Resuscitation Status: Full Code 07/08/16 21:45 Bed rest [RC] .CONT Physician Instructions: Bed rest w/bathroom privileges [RC] .PRN Cardiac Monitoring Med/Surg [RC] .CONT Telemetry Reason: ACS/CP Continuous pulse oximetry [RC] CONT Comment: Measure intake and output [RC] QSHIFT Measure weight [RC] DAILY Oxygen via nasal cannula Nasal Cannula 2 lpm Comment: Titrate O2 to main O2 sat greater than: 92% RT has an order or consult [RC] NOW 0.9 % Sodium Chloride 1,000 ml IVC 50 mls/hr Benzonatate [Tessalon] 100 mg PO TID GuaiFENesin ER [Mucinex] 1,200 mg PO BID 07/08/16 21:52 Culture,Sputum with Gram Stain [] Routine Comment: [facility] Source: Sputum Specimen: Send someone from the department to collect Specimen Description: 07/08/16 21:56 Alprazolam [Xanax] 1 mg PO DAILY PRN 07/08/16 22:00 Troponin I Q6H Comment: Specimen: Send someone from the department to collect Azithromycin [Zithromax] 500 mg D5% in Water [Dextrose 5%] 250 ml IVPB Q24H CefTRIAXone [Rocephin] 1,000 mg D5% in Water (Mini-Bag+) [Dextrose 5% (Minibag +) 100 ML] 100 ml IVPB BID 07/08/16 22:02 ABG [Arterial Blood Gas] Stat Comment: Specimen: Send someone from the department to collect 07/08/16 22:03 BIPAP [RC] PRN BIPAP/CPAP On/Off Times [RC] PRN 07/08/16 22:04 Glucose, blood poc measurement [RC] ACHS D5% in Water [Dextrose 5%] 1,000 ml IV CONT Dextrose 50 % in Water (Syg) [Dextrose 50% (Syg)] 25 ml IVP AD PRN Dextrose Gel [Gluctose] 15 gm PO ONCE PRN Dextrose Gel [Gluctose] 30 gm PO ONCE PRN Glucagon, Human Recombinant [GlucaGen] 1 mg IM ONCE PRN 07/08/16 22:05 Hypoglycemia Treatment Orders [RC] .once Notify provider [RC] once Physician Instructions: 07/08/16 22:15 Insulin LISPRO [HumaLOG] See Protocol SQ HS 07/08/16 23:00 Ipratropium/Albuterol Neb [Duoneb] 3 ml IH QIDR 07/08/16 Dinner Regular Diet Diet Modifications: 07/09/16 00:00 MethylPREDNISolone [Solu-MEDROL] 40 mg IVP Q6HR 07/09/16 04:00 Complete Blood Count w/o Diff [HEME] AM 0400 Comment: Specimen: Send someone from the department to collect Comprehensive Metabolic Panel AM 0400 Comment: Specimen: Send someone from the department to collect Hgb A1C AM 0400 Comment: Specimen: Send someone from the department to collect Lipid Panel AM 0400 Comment: Specimen: Send someone from the department to collect Magnesium AM 0400 Comment: Specimen: Send someone from the department to collect Phosphorous AM 0400 Comment: Specimen: Send someone from the department to collect Thyroid Stimulating Hormone AM 0400 Comment: Specimen: Send someone from the department to collect Troponin I Q6H Comment: Specimen: Send someone from the department to collect Urinalysis reflex Microscopic [URIN] AM 0400 Comment: Specimen: Send someone from the department to collect 07/09/16 07:00 Enoxaparin [Lovenox] 40 mg SQ 0700 07/09/16 07:30 Insulin LISPRO [HumaLOG] See Protocol SQ TIDAC 07/09/16 09:00 Aspirin 81 mg PO DAILY Cyclobenzaprine [Flexeril] 10 mg PO TID Dextromethorphan Polistrx(12h) [Delsym 12-HR] 30 mg PO Q12HR PRN FLUoxetine HCl [PROzac] 40 mg PO QAM Famotidine [Pepcid] 20 mg PO BID Fluticasone Propionate Nasal [Flonase] 50 mcg NS DAILY Gabapentin [Neurontin] 800 mg PO QID How will this medication be supplied?: Pharmacy to Subsitute Polyethylene Glycol 3350 [MiraLAX] 17 gm PO DAILY Pravastatin Sodium [Pravachol] 80 mg PO DAILY How will this medication be supplied?: Pharmacy to Subsitute Propranolol HCl [Propranolol HCl] 40 mg PO BID How will this medication be supplied?: Pharmacy to Subsitute 07/09/16 10:00 Troponin I Q6H Comment: Specimen: Send someone from the department to collect 07/09/16 21:00 Insulin DETEMIR [Levemir] 16 unit SQ HS Montelukast [Singulair] 10 mg PO HS Zolpidem [Ambien] 5 mg PO HS Patient Problems Acute exacerbation of chronic obstructive pulmonary disease (Acute) Failure of outpatient treatment (Acute) SIRS (systemic inflammatory response syndrome) (Acute) Vital Signs Temp Pulse Resp BP Pulse Ox 07/08/16 21:52 98.0 F 90 18 94/62 96 07/08/16 21:04 98.2 F 18 102/71 07/08/16 19:42 20 99 07/08/16 17:19 98.2 F 93 18 91/66 97 Laboratory Results 07/08/16 07/08/16 07/08/16 Range/Units 18:55 18:55 18:55 WBC 13.6 H (4.3-11.1) K/mcL RBC 4.37 (3.82-4.97) M/mcL Hgb 11.6 (11.5-15.4) g/dL Hct 37.2 (35.3-44.9) % MCV 85.1 (83.0-100.0) fL MCH 26.5 L (28.0-33.3) pg MCHC 31.2 L (31.6-35.5) g/dL RDW 15.2 H (11.5-14.5) % Plt Count 370 (140-400) K/mcL MPV 10.3 (9.4-12.4) fL Immature Gran % 0.7 (0-4) % Seg Neutrophils % 42.3 % Lymphocytes % 38.6 % Monocytes % 8.6 % Eosinophils % 9.6 % Basophils % 0.2 % Neutrophils # 5.8 (1.6-8.9) K/mcL Lymphocytes # 5.2 H (0.6-4.6) K/mcL Monocytes # 1.2 (0.0-1.3) K/mcL Eosinophils # 1.3 H (0.0-0.6) K/mcL Basophils # 0.0 (0.0-0.2) K/mcL Immature Plt Fraction 6.0 (1.1-6.1) % PT 9.9 (9.4-12.1) Seconds INR 0.9 APTT 27.1 (26.0-36.0) Seconds Sodium 136 (136-145) mEq/L Potassium 3.8 (3.5-4.5) mEq/L Chloride 101 (98-109) mEq/L Carbon Dioxide 26 (19-29) mEq/L BUN 11 (7-20) mg/dL Creatinine 0.69 (0.57-1.11) mg/dL Est GFR ( Amer) > 60 (> 60) Est GFR (Non-Af Amer) > 60 (> 60) BUN/Creatinine Ratio 16 (6-26) Glucose 122 H (70-99) mg/dL Calculated Osmolality 283 (280-300) Calcium 9.2 (8.6-10.8) mg/dL Troponin I (0-0.03) ng/mL B-Natriuretic Peptide (0-100) pg/mL 07/08/16 07/08/16 Range/Units 18:55 18:55 WBC (4.3-11.1) K/mcL RBC (3.82-4.97) M/mcL Hgb (11.5-15.4) g/dL Hct (35.3-44.9) % MCV (83.0-100.0) fL MCH (28.0-33.3) pg MCHC (31.6-35.5) g/dL RDW (11.5-14.5) % Plt Count (140-400) K/mcL MPV (9.4-12.4) fL Immature Gran % (0-4) % Seg Neutrophils % % Lymphocytes % % Monocytes % % Eosinophils % % Basophils % % Neutrophils # (1.6-8.9) K/mcL Lymphocytes # (0.6-4.6) K/mcL Monocytes # (0.0-1.3) K/mcL Eosinophils # (0.0-0.6) K/mcL Basophils # (0.0-0.2) K/mcL Immature Plt Fraction (1.1-6.1) % PT (9.4-12.1) Seconds INR APTT (26.0-36.0) Seconds Sodium (136-145) mEq/L Potassium (3.5-4.5) mEq/L Chloride (98-109) mEq/L Carbon Dioxide (19-29) mEq/L BUN (7-20) mg/dL Creatinine (0.57-1.11) mg/dL Est GFR ( Amer) (> 60) Est GFR (Non-Af Amer) (> 60) BUN/Creatinine Ratio (6-26) Glucose (70-99) mg/dL Calculated Osmolality (280-300) Calcium (8.6-10.8) mg/dL Troponin I 0.00 (0-0.03) ng/mL B-Natriuretic Peptide 21 (0-100) pg/mL Assessments/Treatments 12 lead ECG assessment Start: 07/08/16 18: 37 Freq: NOW Status: Complete Document 07/08/16 19:32 OLP (Rec: 07/08/16 19:32 OLP [id number]) EKG Time EKG Completed 19:23 EKG performed by Korey MEDELLIN EKG shown to and signed by Dr. Purdy ED Discharge Assessment Start: 07/08/16 17: 22 Freq: Status: Active Document 07/08/16 21:04 OLP (Rec: 07/08/16 21:05 OLP [id number]) ED Discharge Assessment ED Discharge Disposition Admitted ED Condition on Discharge Fair Med Rec/Patient Pharmacy Completed? Yes Admitted to 3A Bed assigned 3a34 report called to Aurelia DAVEY Transported by feed research technician Transported with oxygen IV Temperature (97.6 F-99.6 F) 98.2 F Pain Scale 0 Pain Scale Used Standard (1-10) Blood Pressure 102/71 Heart rate 86 Respiratory Rate 18 Oxygen Delivery Nasal Cannula Oxygen Saturation 98 Critical Care Minutes 0 ED Shortness of Breath Assessment Start: 07/08/16 17: 22 Freq: Status: Complete Document 07/08/16 18:03 OLP (Rec: 07/08/16 18:06 OLP [id number]) Shortness of Breath Sepsis Infection Criteria Present none Sepsis SIRS Criteria none Sepsis Screen No Definite Risk Symptoms/Complaint Shortness of Breath Cough Pain With Inspiration Onset End may Duration Constant Severity Moderate Context Unknown Known History COPD Diabetes Improves With Rest Bronchodilators Upright Position Worsens With Lying Flat Exertion Coughing Associated Symptoms Cough Treatment Prior to Arrival Bronchodilator Chest Pain Intensity (out of 10) 0 Respiratory Depth Deep Effort Labored Short of Breath Pattern Tachypnea Retraction Type Subcostal Throughout Breath Sounds Inspiratory Wheezing Expiratory Wheezing Cough Description Involuntary Moist Hacking Frequency Intermittent Level Of Consciousness Awake Alert Appropriate Follows Commands Patient Orientation Person Place Time Patient Behavior Appropriate Cooperative Ability to Follow Directions Good Impaired Cognition No Skin Temperature Warm Skin Moisture Dry Skin Turgor Normal Capillary Refill < 3 Seconds Intake and Output, Strict Start: 07/08/16 21: 51 Freq: Status: Active Document 07/08/16 21:52 CMT (Rec: 07/08/16 21:53 CMT [id number]) Intake and Output Intake, Oral Amount 0 Output, Urine Amount 0 Measure weight Start: 07/08/16 21: 45 Freq: DAILY Status: Active Document 07/08/16 21:57 CMT (Rec: 07/08/16 21:58 CMT [id number]) Height and Weight Height 1.57 m Weight 65.77 kg Weight Measurement Method Standing Scale Body Mass Index (BMI) 26.50 BMI Classification Overweight [employer] Start: 07/08/16 20: 46 Freq: Status: Active Document 07/08/16 20:47 EJD (Rec: 07/08/16 20:47 EJD [id number]) Pharmacy [employer] Home Medicatons Reconciled? Yes Was this to catch up from previous day No Does patient take 10 or more medications Yes ? Does patient request medication No education Do home meds include Coumadin, Xarelto, No Pradaxa, Eliquis Added Patient Preferred Pharmacy Yes Verified Allergies Yes Would Patient Like to use [facility] Out No Patient Pharmacy Patient Rounding Start: 07/08/16 17: 22 Freq: Q30M Status: Active Document 07/08/16 18:03 OLP (Rec: 07/08/16 18:06 OLP [id number]) Patient Rounding Safety Call Light Within Reach Bed Position Low Fall Precautions Bed Brake On Side Rails Up X2 Are the Floors Free From Trip Hazards? Yes Is the Room Free From Clutter? Yes Rounding Completed? Yes Patient Rounding Updated patient/family on Plan of Care Checked for Patient Positioning Patient Personal Items Placed Within Reach Patient Awake Patient Verbalizes Pain/Symptoms No Improvement Document 07/08/16 19:33 OLP (Rec: 07/08/16 19:33 OLP [id number]) Patient Rounding Safety Call Light Within Reach Bed Position Low Fall Precautions Bed Brake On Side Rails Up X2 Are the Floors Free From Trip Hazards? Yes Is the Room Free From Clutter? Yes Rounding Completed? Yes Patient Rounding Updated patient/family on Plan of Care Checked for Patient Positioning Checked Patient Pain Level Patient Awake Patient Verbalizes Pain/Symptoms No Improvement Patient Rounding Start: 07/08/16 21: 51 Freq: Status: Active Document 07/08/16 21:52 CMT (Rec: 07/08/16 21:53 CMT [id number]) Hourly Rounding Hourly Rounding Checked for Patient Positioning Patient Personal Items Placed Within Reach Hourly Rounding Completed Yes Patient Awake Is family present? No Safety Call Light Within Reach Bed Position Low Phone Within Reach Side Rails Up X2 Are the Floors Free From Trip Hazards? Yes Is the Room Free From Clutter? Yes Turn and Postion Bedrest No Turn Q 2HR No Patient Position Back RT Respiratory Medication Delivery Start: 07/08/16 19: 42 Freq: Status: Active Document 07/08/16 19:42 TRM (Rec: 07/08/16 19:45 TRM [id number]) Respiratory Therapy Pre Assessment SPO2 (95-100) 99 Heart rate 88 Respiratory Rate 20 Oxygen Delivery Method Nasal Cannula O2 Flow Rate 2 FIO2 (%) 28 Throughout Breath Sounds Expiratory Wheezing Treatment Modality Nebulizer Therapy Respiratory Medications Duoneb Medication Delivery Device Mouthpiece Treatment Tolerance Excellent Initial Aerosol/MDI/DPI* Yes Post RT Medication Delivery Post Heart rate 85 Post Respiratory Rate (breaths/min) 17 Throughout Post Breath Sounds Expiratory Wheezing Treatment Outcome No Change Comment no distress or comps noted RT Cough/Suction Cough Description None Saline lock insertion/management Start: 07/08/16 18: 37 Freq: .ONCE Status: Complete Document 07/08/16 19:32 OLP (Rec: 07/08/16 19:33 OLP [id number]) IV Insertion/Site Assessment IV Attempt 2 Successful Successful Blood drawn and sent to Lab Yes Right Antecubital Date of Insertion 07/08/16 Time of Insertion 19:00 Reason for IV Insertion Provide Access for IV Medication(s) IV Catheter Type Peripheral IV Gauge (gauge) 20 Site Observation Patent Dressing Applied Window Dressing Transparent Dressing Dry/Intact Patient Tolerance Tolerated Well Triage Start: 07/08/16 17: 19 Freq: Status: Complete Document 07/08/16 17:19 [facility] (Rec: 07/08/16 17:22 [facility] [id number]) Triage Chief Complaint triage ED Shortness of Breath/Dyspnea Patient Stated Complaint EMMANUEL HELENA 2 Onset (ago) day(s) Description of Symptoms Patient states she was diagnosed with bronchitis here about one month ago, patient states worsening cough and shortness of breath with exertion. General Appearance alert in no apparent distress Work Related Injury? No Mode of arrival ambulatory Source patient Limitations no limitations Ebola Risk: Travel/Contact With Anyone No From Affected Area/s Has Patient Experienced Ebola Symptoms No Temperature (97.6 F-99.6 F) 98.2 F Temperature Source Oral Pulse Rate 93 Respiratory Rate 18 Blood Pressure 91/66 O2 Sat by Pulse Oximetry (95-100) 97 Oxygen Delivery Room Air Height 1.57 m Weight 65.771 kg Weight Measurement Method Stated by Patient Pain Scale 7 Pain Scale Used Standard (1-10) Medical history diabetes GERD hyperlipidemia arthritis osteoporosis thyroid disease kidney stones COPD Female surgical history other Additional surgical history PMH tubal ligation - fusion x 2 Psychiatric history anxiety depression Smoking Status Former smoker Smokeless Tobacco Status No Alcohol Use none Drug Use none Patient resides with/at Children Non-Family Member Safety Concerns Feels Safe At This Time Do you currently feel hopless, have No thoughts of self harm, or thoughts of harming others History of fall in last 14 days? No [employer] history non-contributory bilateral tubal ligation Influenza vaccine up to date Yes Pneumonia vaccine up to date Yes Tetanus UTD yes Coma Scale Eye Opening Spontaneous Coma Scale Motor Response Obeys Commands Coma Scale Verbal Response Oriented Coma Scale Total 15 Sister Family Member Living Status Hx Family Cardiac Disorders Yes: CHF Brother Family Member Living Status Hx Family Cancer Yes: [place] Father Family Member Living Status Hx Family Cardiac Disorders Yes: [place] Mother Family Member Living Status Hx Family Cardiac Disorders Yes: CHF Vital Signs Assessment Start: 07/08/16 18: 37 Freq: PROTOCOL Status: Active Document 07/08/16 21:52 CMT (Rec: 07/08/16 21:53 CMT [id number]) Vital Signs with MEWS Temperature (97.6 F-99.6 F) 98.0 F Temperature Source Oral Pulse Rate 90 Respiratory Rate 18 Pulse Oximetry (95-100) 96 Oxygen Delivery Nasal Cannula Oxygen Flow Rate (LPM) 2 Blood Pressure 94/62 Blood Pressure Location Left Arm Source Automatic Cuff Position HOB Elevated Neuro Status *recalled from last Alert documentation MEWS Score 2 Discharge Information ED Provider: Alex Purdy Status: Departed Time Seen by Provider: 07/08/16 18:09 Condition: Good Triaged At: 07/08/16 17:19 Emergency Discharge Date/Time: 07/08/16 21:30 Emergency Discharge Disposition: Admitted As Inpatient Clinical Impression Acute exacerbation of chronic obstructive pulmonary disease Failure of outpatient treatment Emergency Discharge Comment: Admit Intervention Last Done ED Shortness of Breath Assessment 07/08/16 18:03 Query Result Sepsis Infection Criteria Present none Sepsis SIRS Criteria none Sepsis Screen No Definite Risk Shortness Of Breath Symptoms/Complaint Shortness of Breath Cough Pain With Inspiration Shortness Of Breath Onset May Shortness Of Breath Duration Constant Shortness Of Breath Severity Moderate Shortness Of Breath Context Unknown Shortness Of Breath Known History COPD Diabetes Shortness Of Breath Improves With Rest Bronchodilators Upright Position Shortness Of Breath Worsens With Lying Flat Exertion Coughing Shortness Of Breath Associated Symptoms Cough Shortness Of Breath Treatments Prior to Bronchodilator Arrival Chest Pain Intensity 0 Respiratory Depth Deep Respiratory Effort Labored Short of Breath Respiratory Pattern Tachypnea Respiratory Retraction Type Subcostal Throughout -Breath Sounds Inspiratory Wheezing Expiratory Wheezing Cough Description Involuntary Moist Hacking Cough Frequency Intermittent Level Of Consciousness Awake Alert Appropriate Follows Commands Patient Orientation Person Place Time Patient Behavior Appropriate Cooperative Ability to Follow Directions Good Impaired Cognition No Skin Temperature Warm Skin Moisture Dry Skin Turgor Normal Capillary Refill < 3 Seconds ED Discharge Assessment 07/08/16 21:04 Query Result ED Discharge Disposition Admitted ED Condition on Discharge Fair Med Rec/Patient Phamracy completed? Yes ED Admit to 3A Bed assigned 3a34 report called to Aurelia DAVEY Transported by feed research technician Transported with oxygen IV Temperature 98.2 F Severity scale (1-10) 0 Pain Scale Used Standard (1-10) Blood Pressure 102/71 Heart rate 86 Respiratory Rate 18 Oxygen Delivery Nasal Cannula Pulse Oximetry Reading 98 Critical Care Minutes 0 Observation Discharge Date/Time: Observation Discharge Disposition: Observation Discharge Comment: Instructions: Stand-Alone Forms: Prescriptions: Visit Report - Forms: - Referrals: Rebecca Nguyễn MD (Primary Care Provider) Radiology Results Chest X-Ray 07/08/16 18:37
[2016-07-08] MEDS ORDERED: Insulin LISPRO 300 UNITS/3 ML VIAL SQ SCH (22:15)
[2016-07-08] MEDS: 0.9 % Sodium Chloride 1,000 ML IVC SCH (23:19)
[2016-07-08 23:28] LABS: ABG Base Excess 5.2 mEq/L (-2.0 to 3.0); ABG Oxygen Saturation 98 % (95-98); ABG PCO2 50 mmHg (35-45); ABG PO2 101 mmHg (85-104); ABG TCO2 32.5 mEq/L (20-26)
[2016-07-08] MEDS: Benzonatate 100 MG CAPSULE PO SCH (23:30)
[2016-07-08] MEDS: Ipratropium/Albuterol Neb 3 ML IH SCH (23:33)
[2016-07-08 23:35] LABS: Blood Gas FiO2 28 %
[2016-07-09] MEDS: *HR* Morphine 2 MG/ML SYRINGE IVP PRN ×2 (00:51→09:06)
[2016-07-09] MEDS: ALPRAZolam 1 MG TABLET PO PRN (00:51)
[2016-07-09] MEDS: Azithromycin 500 MG in D5% in Water 250 ML IVPB SCH ×2 (00:55→22:28)
[2016-07-09] MEDS: MethylPREDNISolone 40 MG/ML VIAL IVP SCH ×4 (00:59→18:13)
[2016-07-09] MEDS: Ipratropium/Albuterol Neb 3 ML IH SCH ×4 (04:25→22:17)
[2016-07-09 05:52] LABS: Hematocrit 35.4 % (35.3-44.9); Hemoglobin 11.1 g/dL (11.5-15.4); Mean Corpuscular HGB Conc 31.4 g/dL (31.6-35.5); Mean Corpuscular Hemoglobin 26.5 pg (28.0-33.3); Mean Corpuscular Volume 84.5 fL (83.0-100.0); Mean Platelet Volume 10.6 fL (9.4-12.4); Platelet Count 334 K/mcL (140-400); Red Blood Count 4.19 M/mcL (3.82-4.97)
[2016-07-09] MEDS ORDERED: Calcium Gluconate 1,000 MG in D5% in Water 100 ML IVPB ONE (06:02)
[2016-07-09 06:04] LABS: Hemoglobin A1C 6.5 %
[2016-07-09 06:09] LABS: Alanine Aminotransferase 10 Units/L (0-55); Albumin 3.2 g/dL (3.5-5.0); Albumin/Globulin Ratio 1.1 (1.1-2.2); Alkaline Phosphatase 55 Units/L (38-126); Aspartate Amino Transferase 11 Units/L (5-34); BUN/Creatinine Ratio 19 (6-26); Bilirubin,Total 0.2 mg/dL (0.2-1.2); Blood Urea Nitrogen 15 mg/dL (7-20); Calcium 9.2 mg/dL (8.6-10.8); Carbon Dioxide 25 mEq/L (19-29); Chloride 105 mEq/L (98-109); Chol/HDL Ratio 2.9 (0-4.9); Cholesterol 144 mg/dL (< 200); Globulin 2.8 g/dL (2.4-3.5); Glucose 222 mg/dL (70-99); HDL Cholesterol 50 mg/dL (40-59); LDL Cholesterol,Calculated 78 mg/dL (0-99); Magnesium 1.6 mg/dL (1.6-2.6); Osmolality,Calculated 292 (280-300); Phosphorous 2.8 mg/dL (2.3-4.7); Potassium 4.5 mEq/L (3.5-4.5); Sodium 137 mEq/L (136-145); Triglycerides 81 mg/dL (< 150); eGFR For African Americans > 60 (> 60); eGFR For Non-African Americans > 60 (> 60)
[2016-07-09] MEDS: *HR* Enoxaparin 40 MG/0.4 ML SYRINGE SQ SCH (06:13)
[2016-07-09 06:30] LABS: Thyroid Stimulating Hormone 0.446 mcIU/mL (0.350-4.840)
[2016-07-09] MEDS ORDERED: Insulin LISPRO 300 UNITS/3 ML VIAL SQ SCH ×2 (07:30→21:00)
[2016-07-09] MEDS: Benzonatate 100 MG CAPSULE PO SCH ×3 (08:50→21:27)
[2016-07-09] MEDS: FLUoxetine 20 MG CAPSULE PO SCH (08:50)
[2016-07-09] MEDS: Famotidine 20 MG TABLET PO SCH ×2 (08:50→21:27)
[2016-07-09] MEDS: Gabapentin 400 MG CAPSULE PO SCH ×4 (08:51→21:27)
[2016-07-09] MEDS: Insulin LISPRO 300 UNITS/3 ML VIAL SQ SCH ×3 (08:51→18:13)
[2016-07-09] MEDS: Aspirin 81 MG TAB.CHEW PO SCH (08:51)
--- NOTE | 2016-07-09 08:51 | Internal Med Progress Note ---
Date of Encounter: 07/09/16 Time of Encounter: 08:51 - Assessment and plan (1) Acute exacerbation of chronic obstructive pulmonary disease Current Visit: Yes Status: Acute (2) Acute bronchitis and bronchiolitis Current Visit: No Status: Acute - Time Spent With Patient Counseling on deep breathing, counseling on incentive spirometry, continue aerosol treatment, add Mucinex, continue steroids, tapered down steroid next a.m. ambulate. Monitor electrolyte. Possible discharge next 24 H 25 - 35 minutes - Subjective Interval history: Patient C/o sob more with any ambulation associated whith wheezing. no vomiting . - Constitutional Vitals: Temp Pulse Resp BP Pulse Ox 97.5 F L 82 16 107/69 97 07/09/16 08:14 07/09/16 08:14 07/09/16 08:14 07/09/16 08:14 07/09/16 08:14 General appearance: Present: mild distress, A&O X 3, obese, answers questions appropriately - Head Head exam: Present: atraumatic, normocephalic - Respiratory Respiratory exam: Present: decreased breath sounds, CTAB, prolonged expiratory phase, wheezes (scattered wheezing ). Absent: accessory muscle use, rhonchi - Cardiovascular Cardiovascular exam: Present: RRR, +S1, +S2. Absent: diastolic murmur, gallop, rubs, systolic murmur - Extremities Exam Extremities exam: Present: warm, radial pulses palpable and symetrical. Absent : calf tenderness, cyanotic, pedal edema - Neurological Exam Neurological exam: Present: CN II-XII intact, oriented X3, no focal deficits. Absent: pronater drift, facial droop, speech deficit Internal Medicine: Result - Labs CBC & Chem 7: 07/09/16 05:08 07/09/16 05:08 Labs: Short CBC 07/09/16 Range/Units 05:08 WBC 8.3 (4.3-11.1) K/mcL Hgb 11.1 L (11.5-15.4) g/dL Hct 35.4 (35.3-44.9) % Plt Count 334 (140-400) K/mcL BMP 07/09/16 05:08 Sodium 137 Potassium 4.5 Chloride 105 Carbon Dioxide 25 BUN 15 Creatinine 0.77 Glucose 222 H Calcium 9.2 Cardiac Enzymes 07/08/16 07/09/16 Range/Units 22:30 05:08 Troponin I 0.00 0.00 (0-0.03) ng/mL Liver Function 07/09/16 Range/Units 05:08 Total Bilirubin 0.2 (0.2-1.2) mg/dL AST 11 (5-34) Units/L ALT 10 (0-55) Units/L Alkaline Phosphatase 55 (38-126) Units/L Albumin 3.2 L (3.5-5.0) g/dL - ABG Interpretation ABG results: ABG ABG pH 7.40 pH Units (7.32-7.45) 07/08/16 23:14 ABG pCO2 50 mmHg (35-45) H 07/08/16 23:14 ABG pO2 101 mmHg (85-104) 07/08/16 23:14 ABG O2 Saturation 98 % (95-98) 07/08/16 23:14 PT/INR, D-dimer PT 9.9 Seconds (9.4-12.1) 07/08/16 18:55 Consult Discharge Plan - Plan Referrals: Rebecca Nguyễn MD [Primary Care Provider] - 07/16/16 2:50 pm Prescriptions: Amoxicillin/Clavulanate [Augmentin] 875 mg PO BIDWM #14 tablet GuaiFENesin ER [Mucinex] 1,200 mg PO BID #20 tbbp.12hr PredniSONE 20 mg PO DAILY #20 tablet
[2016-07-09] MEDS: Fluticasone Propionate Nasal 50 MCG/SPRAY BOTTLE NS SCH (08:52)
[2016-07-09] MEDS ORDERED: Dextromethorphan Polistrx(12h) 30 MG/5 ML UDC PO PRN (09:00)
--- NOTE | 2016-07-09 14:17 | Discharge Summary ---
Date of Encounter: 07/10/16 Time of Encounter: 14:14 - Discharge Diagnosis (1) Failure of outpatient treatment Priority: Secondary Status: Acute (2) Acute bronchitis and bronchiolitis Priority: Primary Status: Acute (3) COPD with exacerbation Priority: Primary Status: Acute - Discharge Medications Home Medications: Albuterol Sulfate [Albuterol Inhaler] 2 puff IH Q4HR PRN 09/16/15 [History] Calcium Carbonate [Calcium] 1,000 mg PO BID 09/16/15 [History] FLUoxetine HCl [Prozac] 40 mg PO QAM 11/20/15 [History] Famotidine [Pepcid] 40 mg PO BID 11/20/15 [History] Fluticasone Propionate Nasal [Flonase] 1 spray NS DAILY 11/20/15 [History] Gabapentin [Neurontin] 800 mg PO QID 11/20/15 [History] Metformin HCl [Glucophage] 1,000 mg PO BID 11/20/15 [History] Montelukast [Singulair] 10 mg PO HS 11/20/15 [History] Pravastatin Sodium [Pravachol] 80 mg PO DAILY 11/20/15 [History] Aspirin 81 mg PO DAILY 01/21/16 [History] Tiotropium [Spiriva] 1 cap IH DAILY 01/21/16 [History] Fluticasone/Salmeterol [Advair 500-50 Diskus] 2 puff IH BID 03/16/16 [History] Ipratropium/Albuterol Neb [Duoneb] 3 ml IH TID 03/16/16 [History] Alprazolam [Xanax 1 MG Tablet] 1 mg PO DAILY PRN #7 tablet 05/23/16 [Rx] Omeprazole [PriLOSEC] 20 mg PO BIDAC #60 capsule. 05/23/16 [Rx] Oxygen 2 l IN CONT #1 each 05/23/16 [Rx] Cyclobenzaprine [Flexeril] 10 mg PO TID 06/26/16 [History] Polyethylene Glycol 3350 [MiraLAX] 17 gm PO DAILY 06/26/16 [History] Propranolol HCl 40 mg PO BID 06/26/16 [History] Varenicline Tartrate [Chantix] 1 mg PO BID 06/26/16 [History] Zolpidem [Ambien] 5 mg PO HS 06/26/16 [History] HYDROcodone/Acet 10/325 mg [[place] 10-325 mg] 1 tab PO TID PRN 07/08/16 [History] Amoxicillin/Clavulanate [Augmentin] 875 mg PO BIDWM #14 tablet 07/09/16 [Rx] GuaiFENesin ER [Mucinex] 1,200 mg PO BID #20 tbbp.12hr 07/09/16 [Rx] PredniSONE 20 mg PO DAILY #20 tablet 07/09/16 [Rx] Allergies/Adverse Reactions: Allergies ketorolac [From Toradol] Allergy (Verified 06/30/16 20:01) Hives Sulfa (Sulfonamide Antibiotics) Allergy (Verified 06/30/16 20:01) Hives tramadol Allergy (Verified 06/30/16 20:01) Hives venom-wasp Allergy (Verified 06/30/16 20:01) Hives latex Adverse Reaction (Verified 06/30/16 20:01) Blister Date of admission: 07/08/16 20:24 Primary care physician: Rebecca Nguyễn MD Consults: 07/08/16 21:44 Consult to Nurse Navigator [CONS] Routine Comment: 07/08/16 23:57 Consult to Checker Cashier [CONS] Routine Reason for SW Consult: Pt receives home oxygen through [employer] 07/09/16 05:58 Consult to Medical Device [CONS] Routine Comment: Discharging clinician: Doe Burkett - Patient Status Disposition: Home, Self-Care Condition: Good Overall status at discharge: patient is progressing back to baseline - Discharge Instructions Instructions: Prednisone (By mouth), Guaifenesin (By mouth), Amoxicillin/ Clavulanate Potassium (By mouth), Chronic Obstructive Pulmonary Disease (DC) Follow Up With: Rebecca Nguyễn MD [Primary Care Provider] - 07/16/16 2:50 pm Forms: Inpatient Work/School Release - Diet and Activity Activity: increase activity as tolerated Diet: low fat, low cholesterol Hospital course: 60 year-old female with past medical history COPD and asthma. Patient came to the hospital was complaining of worsening of shortness of breath and wheezing. In spite of finishing course of antibiotic as well as tapering dose of steroid as an outpatient. Patient was admitted to the hospital was started patient on antibiotic in addition to Solu medrol aerosol treatments scheduled every 4 hour we added Mucinex. Continue to monitor patient during hospitalization. Patient condition continue to improve gradually. I had long discussion with patient counseling about pulmonary rehabilitation. Counseling about the incentive spirometry. Counseling about avoiding a trigger agent for her asthma or COPD. Patient discharged home today in stable condition . - Time Spent with Patient Total time spent providing and/or coordinating discharge services: Greater than 30 minutes - Constitutional Vitals: Temp Pulse Resp BP Pulse Ox 97.4 F L 79 16 104/71 97 07/09/16 12:29 07/09/16 12:29 07/09/16 12:29 07/09/16 12:29 07/09/16 12:29 General appearance: Present: mild distress, A&O X 3, obese, answers questions appropriately
[2016-07-09] MEDS: *HR* OxyCODONE Immed Rel 5 MG TABLET PO PRN ×2 (16:22→22:27)
[2016-07-09] MEDS ORDERED: Insulin DETEMIR 100 UNIT/ML X5UNITS SQ SCH ×2 (21:00)
[2016-07-09] MEDS: 0.9 % Sodium Chloride 1,000 ML IVC SCH (21:31)
[2016-07-10] MEDS: ALPRAZolam 1 MG TABLET PO PRN (01:03)
[2016-07-10] MEDS: MethylPREDNISolone 40 MG/ML VIAL IVP SCH ×2 (01:03→06:06)
[2016-07-10] MEDS: Ipratropium/Albuterol Neb 3 ML IH SCH ×2 (04:13→10:54)
[2016-07-10] MEDS: *HR* Enoxaparin 40 MG/0.4 ML SYRINGE SQ SCH (06:06)
[2016-07-10] MEDS: *HR* OxyCODONE Immed Rel 5 MG TABLET PO PRN (06:13)
[2016-07-10] MEDS: Benzonatate 100 MG CAPSULE PO SCH (08:43)
[2016-07-10] MEDS: Famotidine 20 MG TABLET PO SCH (08:43)
[2016-07-10] MEDS: Aspirin 81 MG TAB.CHEW PO SCH (08:43)
[2016-07-10] MEDS: FLUoxetine 20 MG CAPSULE PO SCH (08:43)
[2016-07-10] MEDS: Gabapentin 400 MG CAPSULE PO SCH (08:44)
[2016-07-10] MEDS: Insulin LISPRO 300 UNITS/3 ML VIAL SQ SCH (08:54)
[2016-07-10 10:30] VITALS: BP 118/80
[2016-07-10] MEDS: Fluticasone Propionate Nasal 50 MCG/SPRAY BOTTLE NS SCH (11:04)
--- NOTE | 2016-07-12 16:01 | Electrocardiograph Report ---
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
== END 2016-07-10 11:20 | disposition home or self-care (01) | DRG 190 ==
LOC: 3ANU 17:09 → EMEROO 17:09 → 3ANU 21:30
PROVIDERS: ADMIT Family Medicine; ATTEND Internal Medicine

== ENCOUNTER 2016-08-05 15:54 | Observation (INO) ==
[2016-08-05] MEDS ORDERED: methylPREDNISolone 125 MG/2 ML VIAL IVP ONE (18:18)
[2016-08-05] MEDS ORDERED: Ipratropium/Albuterol Neb 3 ML IH ONE (18:18)
--- NOTE | 2016-08-05 18:22 | Emergency Department Note ---
Disposition Clinical Impression: Acute exacerbation of chronic obstructive airways disease Disposition: Still a Patient Condition: Fair Referrals: Rebecca Nguyễn MD [Primary Care Provider] - Forms: ED Satisfaction Letter Time of Disposition: 19:10 SOB HPI - General Chief Complaint: ED Shortness of Breath/Dyspnea Stated Complaint: EMMANUEL-COPD Time Seen by Provider: 08/05/16 18:10 Source: patient Limitations: no limitations Nursing Notes Reviewed: Yes Vital Signs Reviewed: Yes - History of Present Illness 56-year-old female with shortness of breath. Patient has a history of COPD she was admitted to [facility] 1 month ago for exacerbation of COPD, she has had multiple sick contacts over the last 2 weeks with her grandchildren. She has had worsening cough, somewhat productive of sputum. Has shortness of breath and wheezing. Is taking prednisone she is prescribed by her outpatient primary care physician yesterday, this is not made her breathing any better. Patient is taking oxygen as needed at home, but has required oxygen dropped a day for the last 2 days. She states she is worsening cough worsening wheezes, denies fever chest pain, nausea, vomiting area, weight changes. Or hemoptysis Pt Subjective Complaint: shortness of breath Onset (ago): day(s) Severity: moderate Improves with: oxygen Worsens with: exertion, movement, coughing Known history of: COPD Associated symptoms: Reports: cough, wheezing, sputum production. Denies: chest pain, pain with inspiration, fever, orthopnea, lower extremity pain, polydipsia Treatment prior to arrival: oxygen Cough present: Yes Cough Description: Voluntary Cough Frequency: Intermittent Sputum production: Yes Sputum Amount: Scant Sputum Color: Clear - Related Data Home oxygen amount: 2 liters (When necessary) Home Medications Medication Instructions Recorded Confirmed Albuterol Sulfate [Albuterol 2 puff IH Q4HR PRN 09/16/15 07/08/16 Inhaler] Calcium Carbonate [Calcium] 1,000 mg PO BID 09/16/15 07/08/16 FLUoxetine HCl [Prozac] 40 mg PO QAM 11/20/15 07/08/16 Famotidine [Pepcid] 40 mg PO BID 11/20/15 07/08/16 Fluticasone Propionate Nasal 1 spray NS DAILY 11/20/15 07/08/16 [Flonase] Gabapentin [Neurontin] 800 mg PO QID 11/20/15 07/08/16 Metformin HCl [Glucophage] 1,000 mg PO BID 11/20/15 07/08/16 Montelukast [Singulair] 10 mg PO HS 11/20/15 07/08/16 Pravastatin Sodium [Pravachol] 80 mg PO DAILY 11/20/15 07/08/16 Aspirin 81 mg PO DAILY 01/21/16 07/08/16 Tiotropium [Spiriva] 1 cap IH DAILY 01/21/16 07/08/16 Fluticasone/Salmeterol [Advair 2 puff IH BID 03/16/16 07/08/16 500-50 Diskus] Ipratropium/Albuterol Neb [Duoneb] 3 ml IH TID 03/16/16 07/08/16 Cyclobenzaprine [Flexeril] 10 mg PO TID 06/26/16 07/08/16 Polyethylene Glycol 3350 [MiraLAX] 17 gm PO DAILY 06/26/16 07/08/16 Propranolol HCl 40 mg PO BID 06/26/16 07/08/16 Varenicline Tartrate [Chantix] 1 mg PO BID 06/26/16 07/08/16 Zolpidem [Ambien] 5 mg PO HS 06/26/16 07/08/16 HYDROcodone/Acet 10/325 mg [[place] 1 tab PO TID PRN 07/08/16 07/08/16 10-325 mg] Previous Rx's Medication Instructions Recorded Alprazolam [Xanax 1 MG Tablet] 1 mg PO DAILY PRN #7 tablet 05/23/16 Omeprazole [PriLOSEC] 20 mg PO BIDAC #60 capsule. 05/23/16 Oxygen 2 l IN CONT #1 each 05/23/16 Amoxicillin/Clavulanate [Augmentin] 875 mg PO BIDWM #14 tablet 07/09/16 GuaiFENesin ER [Mucinex] 1,200 mg PO BID #20 tbbp.12hr 07/09/16 PredniSONE 20 mg PO DAILY #20 tablet 07/09/16 Naproxen [Naprosyn] 500 mg PO BID PRN #14 tablet 07/13/16 Allergies Allergy/AdvReac Type Severity Reaction Status Date / Time ketorolac [From Toradol] Allergy Hives Verified 07/13/16 10:01 Sulfa (Sulfonamide Allergy Hives Verified 07/13/16 10:01 Antibiotics) tramadol Allergy Hives Verified 07/13/16 10:01 venom-wasp Allergy Hives Verified 07/13/16 10:01 latex AdvReac Blister Verified 07/13/16 10:01 All systems ED: reviewed and negative except as stated. Constitutional: Denies: fever, chills ENT ED: Denies: ear pain, throat pain Cardiovascular: Denies: chest pain, palpitations Respiratory: Reports: as per HPI, cough, dyspnea, wheezes, sputum production. Denies: hemoptysis Gastrointestinal: Denies: abdominal pain, nausea, vomiting, diarrhea Genitourinary: Denies: urgency, dysuria Musculoskeletal: Denies: back pain, neck pain Integumentary: Denies: rash Neurological: Denies: headache, weakness Past Medical History - Past Medical History Attestation: Yes The following information was validated with the patient. Source: patient Medical history: Reports: arthritis, asthma, COPD, diabetes, GERD, GI bleed, hyperlipidemia, kidney stones, migraine, osteoporosis, thyroid disease, other Surgical history: Reports: cataract, colectomy (Descending colectomy partial. Colonoscopyx2.), orthopedic, other (Reduction internal fixation left), other (C5 -C6 cervical fusion. 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 GI: normal inspection, Soft, NTND, BS present Back: normal inspection, no tenderness to palpation Neuro: A&Ox3, nonfocal neuro exam no gross deficits bilat UE and LE Skin: No rashes, skin warm, dry, intact - General Limitations: no limitations General appearance: alert Course Course Narrative: 56-year-old female with probable COPD exacerbation, we will evaluate for pneumonia, chest x-ray, DuoNeb 3 Solu-Medrol ordered, Care to be signed out to the night team. For further evaluation and dispo Vital Signs Temperature 97.7 F 08/05/16 15:56 Pulse Rate 79 08/05/16 15:56 Respiratory Rate 22 08/05/16 15:56 Blood Pressure 112/74 08/05/16 15:56 O2 Sat by Pulse Oximetry 97 08/05/16 15:56 Temperature 97.7 F 08/05/16 15:56 Pulse Rate 68 08/05/16 18:58 Respiratory Rate 18 08/05/16 18:30 Blood Pressure 117/81 08/05/16 18:58 O2 Sat by Pulse Oximetry 98 08/05/16 18:58 Oxygen Delivery Oxygen Delivery Nasal Cannula Shortness of Breath/Dyspnea - Medical Records Medical records reviewed: Yes I reviewed the patient's medical records. - Lab Data Lab results reviewed: Yes I reviewed the patient's lab results. Result diagrams: 08/05/16 18:05 08/05/16 18:05 Lab Results 08/05/16 08/05/16 08/05/16 Range/Units 18:05 18:05 18:05 WBC 13.0 H (4.3-11.1) K/mcL RBC 4.93 (3.82-4.97) M/mcL Hgb 13.3 (11.5-15.4) g/dL Hct 43.0 (35.3-44.9) % MCV 87.2 (83.0-100.0) fL MCH 27.0 L (28.0-33.3) pg MCHC 30.9 L (31.6-35.5) g/dL RDW 15.5 H (11.5-14.5) % Plt Count 410 H (140-400) K/mcL MPV 10.2 (9.4-12.4) fL Immature Gran % 0.6 (0-4) % Seg Neutrophils % 72.2 % Lymphocytes % 20.2 % Monocytes % 4.6 % Eosinophils % 2.1 % Basophils % 0.3 % Neutrophils # 9.4 H (1.6-8.9) K/mcL Lymphocytes # 2.6 (0.6-4.6) K/mcL Monocytes # 0.6 (0.0-1.3) K/mcL Eosinophils # 0.3 (0.0-0.6) K/mcL Basophils # 0.0 (0.0-0.2) K/mcL PT (9.4-12.1) Seconds INR APTT (26.0-36.0) Seconds Sodium 137 (136-145) mEq/L Potassium 4.0 (3.5-4.5) mEq/L Chloride 100 (98-109) mEq/L Carbon Dioxide 22 (19-29) mEq/L BUN 22 H (7-20) mg/dL Creatinine 1.29 H (0.57-1.11) mg/dL Est GFR ( Amer) 52 L (> 60) Est GFR (Non-Af Amer) 43 L (> 60) BUN/Creatinine Ratio 17 (6-26) Glucose 223 H (70-99) mg/dL Calculated Osmolality 294 (280-300) Calcium 9.6 (8.6-10.8) mg/dL Troponin I 0.00 (0-0.03) ng/mL B-Natriuretic Peptide (0-100) pg/mL 08/05/16 08/05/16 Range/Units 18:05 18:05 WBC (4.3-11.1) K/mcL RBC (3.82-4.97) M/mcL Hgb (11.5-15.4) g/dL Hct (35.3-44.9) % MCV (83.0-100.0) fL MCH (28.0-33.3) pg MCHC (31.6-35.5) g/dL RDW (11.5-14.5) % Plt Count (140-400) K/mcL MPV (9.4-12.4) fL Immature Gran % (0-4) % Seg Neutrophils % % Lymphocytes % % Monocytes % % Eosinophils % % Basophils % % Neutrophils # (1.6-8.9) K/mcL Lymphocytes # (0.6-4.6) K/mcL Monocytes # (0.0-1.3) K/mcL Eosinophils # (0.0-0.6) K/mcL Basophils # (0.0-0.2) K/mcL PT 9.4 (9.4-12.1) Seconds INR 0.9 APTT 27.8 (26.0-36.0) Seconds Sodium (136-145) mEq/L Potassium (3.5-4.5) mEq/L Chloride (98-109) mEq/L Carbon Dioxide (19-29) mEq/L BUN (7-20) mg/dL Creatinine (0.57-1.11) mg/dL Est GFR ( Amer) (> 60) Est GFR (Non-Af Amer) (> 60) BUN/Creatinine Ratio (6-26) Glucose (70-99) mg/dL Calculated Osmolality (280-300) Calcium (8.6-10.8) mg/dL Troponin I (0-0.03) ng/mL B-Natriuretic Peptide 32 (0-100) pg/mL - Radiology Data Radiology results reviewed: Yes I reviewed the patient's radiology results. - EKG Data EKG attestation: Yes I reviewed and interpreted this EKG. EKG shows normal: Reports: sinus rhythm (73 bpm WI 138 QRS [address] elevations or depressions. Some early previous EKG for A 2017) Rate: Reports: normal Rhythm: Reports: NSR Interpretation: Reports: no acute changes S.B.A.R. - S.B.A.R. Transition of Care: AECOPD likely versus PNA, likely admission after labs nebs and CXE Situation: Demographics, MOA Background: Presenting Complaint, Relevant PMH, Meds, & Allergies Assessment: Vital Signs, Course and respsone to treatment, Exam Concerns, Patient/Family Expectation, Pertinant Lab Results, Outstanding Labs Recommendation: Barrier(s) to disposition, Recommendation based on pending studies, treatments, or consults S.B.A.R. Report Given to: Chaka CamarilloABarak Repor Time: 18:24 Attestation Statement - Attestation Attestation: I examined this patient and my medical decision-making was reviewed with the ELECTRONICS INSTRUCTOR/PA/Advanced Practice Nurse/Resident Physician. I agree with the documented findings, disposition and treatment plan as described except to the extent set forth below. Patient to the emergency department with cough and shortness of breath. Patient states her chest and tight. Dry cough. Saw her PCP 1 week ago started on steroids beginning worse. On exam she is in no distress with expiratory wheezing. Plan. Patient required continuous oxygen all now. Steroids nebs and admitted.
[2016-08-05 18:27] LABS: Basophils % 0.3 %; Eosinophils # 0.3 K/mcL (0.0-0.6); Eosinophils % 2.1 %; Hemoglobin 13.3 g/dL (11.5-15.4); Immature Granulocytes % 0.6 % (0-4); Lymphocytes # 2.6 K/mcL (0.6-4.6); Lymphocytes % 20.2 %; Mean Corpuscular HGB Conc 30.9 g/dL (31.6-35.5); Mean Corpuscular Volume 87.2 fL (83.0-100.0); Mean Platelet Volume 10.2 fL (9.4-12.4); Monocytes # 0.6 K/mcL (0.0-1.3); Monocytes % 4.6 %; Neutrophils # 9.4 K/mcL (1.6-8.9); Platelet Count 410 K/mcL (140-400); Red Blood Count 4.93 M/mcL (3.82-4.97); Red Cell Distribution Width 15.5 % (11.5-14.5); Segmented Neutrophils % 72.2 %
[2016-08-05 18:32] LABS: INR 0.9; Prothrombin Time 9.4 Seconds (9.4-12.1)
[2016-08-05 18:35] LABS: Activated Partial Thrombo Time 27.8 Seconds (26.0-36.0)
[2016-08-05 18:48] LABS: Calcium 9.6 mg/dL (8.6-10.8)
[2016-08-05] MEDS ORDERED: 0.9 % Sodium Chloride 1,000 ML IV ONE (18:52)
[2016-08-05] MEDS ORDERED: *HR* HYDROcodone/Acet 10/325 mg TABLET PO ONE (19:41)
--- NOTE | 2016-08-05 20:56 | Emergency Department Note ---
Disposition Clinical Impression: Acute exacerbation of chronic obstructive airways disease Disposition: Admitted As Inpatient Condition: Fair SOB HPI - General Chief Complaint: ED Shortness of Breath/Dyspnea Stated Complaint: EMMANUEL-COPD Time Seen by Provider: 08/05/16 18:10 Source: patient Limitations: no limitations - History of Present Illness Severity: moderate Improves with: oxygen Worsens with: exertion, movement, coughing Associated symptoms: Reports: cough, wheezing, sputum production. Denies: chest pain, pain with inspiration, fever, orthopnea, lower extremity pain, polydipsia Treatment prior to arrival: oxygen - Related Data Home oxygen amount: 2 liters (When necessary) Home Medications Medication Instructions Recorded Confirmed Albuterol Sulfate [Albuterol 2 puff IH Q4HR PRN 09/16/15 08/05/16 Inhaler] Calcium Carbonate [Calcium] 1,000 mg PO BID 09/16/15 08/05/16 FLUoxetine HCl [Prozac] 40 mg PO QAM 11/20/15 08/05/16 Famotidine [Pepcid] 40 mg PO BID 11/20/15 08/05/16 Fluticasone Propionate Nasal 50 mcg NS DAILY 11/20/15 08/05/16 [Flonase] Gabapentin [Neurontin] 800 mg PO QID 11/20/15 08/05/16 Metformin HCl [Glucophage] 1,000 mg PO BID 11/20/15 08/05/16 Montelukast [Singulair] 10 mg PO HS 11/20/15 08/05/16 Pravastatin Sodium [Pravachol] 80 mg PO DAILY 11/20/15 08/05/16 Aspirin 81 mg PO DAILY 01/21/16 08/05/16 Tiotropium [Spiriva] 18 mcg IH DAILY 01/21/16 08/05/16 Fluticasone/Salmeterol [Advair 2 puff IH BID 03/16/16 08/05/16 500-50 Diskus] Ipratropium/Albuterol Neb [Duoneb] 3 ml IH TID 03/16/16 08/05/16 Cyclobenzaprine [Flexeril] 10 mg PO TID PRN 06/26/16 08/05/16 Polyethylene Glycol 3350 [MiraLAX] 17 gm PO DAILY 06/26/16 08/05/16 Propranolol HCl 40 mg PO BID 06/26/16 08/05/16 Varenicline Tartrate [Chantix] 1 mg PO BID 06/26/16 08/05/16 Zolpidem [Ambien] 5 mg PO HS 06/26/16 08/05/16 HYDROcodone/Acet 10/325 mg [[place] 1 tab PO QID PRN 07/08/16 08/05/16 10-325 mg] DiphenhydraMINE [Benadryl] 25 mg PO HS 08/05/16 08/05/16 Insulin LISPRO [HumaLOG] 5 - 10 units SQ AD 08/05/16 08/05/16 Meloxicam [Meloxicam] 15 mg PO DAILY 08/05/16 08/05/16 Previous Rx's Medication Instructions Recorded Alprazolam [Xanax 1 MG Tablet] 1 mg PO DAILY PRN #7 tablet 05/23/16 Omeprazole [PriLOSEC] 20 mg PO BIDAC #60 capsule. 05/23/16 Oxygen 2 l IN CONT #1 each 05/23/16 PredniSONE 20 mg PO DAILY #20 tablet 07/09/16 Naproxen [Naprosyn] 500 mg PO BID PRN #14 tablet 07/13/16 Allergies Allergy/AdvReac Type Severity Reaction Status Date / Time ketorolac [From Toradol] Allergy Hives Verified 07/13/16 10:01 Sulfa (Sulfonamide Allergy Hives Verified 07/13/16 10:01 Antibiotics) tramadol Allergy Hives Verified 07/13/16 10:01 venom-wasp Allergy Hives Verified 07/13/16 10:01 latex AdvReac Blister Verified 07/13/16 10:01 Constitutional: Denies: fever, chills ENT ED: Denies: ear pain, throat pain Cardiovascular: Denies: chest pain, palpitations Respiratory: Reports: as per HPI, cough, dyspnea, wheezes, sputum production. Denies: hemoptysis Gastrointestinal: Denies: abdominal pain, nausea, vomiting, diarrhea Genitourinary: Denies: urgency, dysuria Musculoskeletal: Denies: back pain, neck pain Integumentary: Denies: rash Neurological: Denies: headache, weakness Past Medical History - Past Medical History Medical history: Reports: arthritis, asthma, COPD, diabetes, GERD, GI bleed, hyperlipidemia, kidney stones, migraine, osteoporosis, thyroid disease, other Surgical history: Reports: cataract, colectomy (Descending colectomy partial. Colonoscopyx2.), orthopedic, other (Reduction internal fixation left), other (C5 -C6 cervical fusion. 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 In stable condition. History of cough and shortness of breath previously treated outpatient by her PCP. We are currently waiting for admission to the hospital. Vital Signs Temperature 97.7 F 08/05/16 15:56 Pulse Rate 79 08/05/16 15:56 Respiratory Rate 22 08/05/16 15:56 Blood Pressure 112/74 08/05/16 15:56 O2 Sat by Pulse Oximetry 97 08/05/16 15:56 Temperature 97.7 F 08/05/16 15:56 Pulse Rate 71 08/05/16 19:39 Respiratory Rate 18 08/05/16 21:21 Blood Pressure 105/70 08/05/16 21:21 O2 Sat by Pulse Oximetry 99 08/05/16 19:39 Oxygen Delivery Oxygen Delivery Nasal Cannula Shortness of Breath/Dyspnea - MDM Narrative Medical decision making narrative: 56-year-old female presents to the ER due to shortness of breath and cough. Has failed outpatient therapy by her PCP. In stable condition here. Admitted to the hospital for acute exacerbation of COPD. - Lab Data Lab results reviewed: Yes I reviewed the patient's lab results. Result diagrams: 08/05/16 18:05 08/05/16 18:05 Lab Results 08/05/16 08/05/16 08/05/16 Range/Units 18:05 18:05 18:05 WBC 13.0 H (4.3-11.1) K/mcL RBC 4.93 (3.82-4.97) M/mcL Hgb 13.3 (11.5-15.4) g/dL Hct 43.0 (35.3-44.9) % MCV 87.2 (83.0-100.0) fL MCH 27.0 L (28.0-33.3) pg MCHC 30.9 L (31.6-35.5) g/dL RDW 15.5 H (11.5-14.5) % Plt Count 410 H (140-400) K/mcL MPV 10.2 (9.4-12.4) fL Immature Gran % 0.6 (0-4) % Seg Neutrophils % 72.2 % Lymphocytes % 20.2 % Monocytes % 4.6 % Eosinophils % 2.1 % Basophils % 0.3 % Neutrophils # 9.4 H (1.6-8.9) K/mcL Lymphocytes # 2.6 (0.6-4.6) K/mcL Monocytes # 0.6 (0.0-1.3) K/mcL Eosinophils # 0.3 (0.0-0.6) K/mcL Basophils # 0.0 (0.0-0.2) K/mcL PT (9.4-12.1) Seconds INR APTT (26.0-36.0) Seconds Sodium 137 (136-145) mEq/L Potassium 4.0 (3.5-4.5) mEq/L Chloride 100 (98-109) mEq/L Carbon Dioxide 22 (19-29) mEq/L BUN 22 H (7-20) mg/dL Creatinine 1.29 H (0.57-1.11) mg/dL Est GFR ( Amer) 52 L (> 60) Est GFR (Non-Af Amer) 43 L (> 60) BUN/Creatinine Ratio 17 (6-26) Glucose 223 H (70-99) mg/dL Calculated Osmolality 294 (280-300) Calcium 9.6 (8.6-10.8) mg/dL Troponin I 0.00 (0-0.03) ng/mL B-Natriuretic Peptide (0-100) pg/mL 08/05/16 08/05/16 Range/Units 18:05 18:05 WBC (4.3-11.1) K/mcL RBC (3.82-4.97) M/mcL Hgb (11.5-15.4) g/dL Hct (35.3-44.9) % MCV (83.0-100.0) fL MCH (28.0-33.3) pg MCHC (31.6-35.5) g/dL RDW (11.5-14.5) % Plt Count (140-400) K/mcL MPV (9.4-12.4) fL Immature Gran % (0-4) % Seg Neutrophils % % Lymphocytes % % Monocytes % % Eosinophils % % Basophils % % Neutrophils # (1.6-8.9) K/mcL Lymphocytes # (0.6-4.6) K/mcL Monocytes # (0.0-1.3) K/mcL Eosinophils # (0.0-0.6) K/mcL Basophils # (0.0-0.2) K/mcL PT 9.4 (9.4-12.1) Seconds INR 0.9 APTT 27.8 (26.0-36.0) Seconds Sodium (136-145) mEq/L Potassium (3.5-4.5) mEq/L Chloride (98-109) mEq/L Carbon Dioxide (19-29) mEq/L BUN (7-20) mg/dL Creatinine (0.57-1.11) mg/dL Est GFR ( Amer) (> 60) Est GFR (Non-Af Amer) (> 60) BUN/Creatinine Ratio (6-26) Glucose (70-99) mg/dL Calculated Osmolality (280-300) Calcium (8.6-10.8) mg/dL Troponin I (0-0.03) ng/mL B-Natriuretic Peptide 32 (0-100) pg/mL - Radiology Data Radiology results reviewed: Yes I reviewed the patient's radiology results. Chest X-Ray 08/05/16 16:01 IMPRESSION: No acute cardiopulmonary process. D/ / 08/05/2016 16:40:14 Julian Mc MD / [email or web address] Interpreting Provider: Julian Mc MD S.B.A.R. - S.B.A.REleanor Situation: Demographics, MOA Background: Presenting Complaint, Relevant PMH, Meds, & Allergies Assessment: Vital Signs, Course and respsone to treatment, Exam Concerns, Patient/Family Expectation, Pertinant Lab Results, Outstanding Labs Recommendation: Barrier(s) to disposition, Recommendation based on pending studies, treatments, or consults SEleanorB.A.R. Report Given to: Dr. Sheyla Moss Repor Time: 21:31 Attestation Statement - Attestation Attestation: I personally interviewed and examined this patient and my medical decision- making was reviewed with the ED Resident Physician, Dr. Null. I agree with the documented findings, disposition and treatment plan as described in the documentation. Patient is a 56-year-old white female is here with an exacerbation of COPD. Dr. Locke, managed care this patient on the emergency department and was to the point of dispositioning the patient when phones in the emergency department were nonfunctioning. We spoke to the hospitalist to relay patient's management the ED and care. Patient had no change in status while under our care in the emergency department she has remained stable on nasal cannula oxygen. Patient will be admitted to the hospitalist service for further evaluation and management.
[2016-08-06] MEDS ORDERED: *HR* Morphine 2 MG/ML SYRINGE IVP PRN (00:27)
[2016-08-06] MEDS ORDERED: Albuterol 2.5 MG/3 ML NEBULIZER IH PRN (00:27)
[2016-08-06] MEDS ORDERED: *HR* Promethazine 25 MG/ML VIAL IVP PRN (00:27)
[2016-08-06] MEDS ORDERED: Acetaminophen 325 MG TABLET PO PRN (00:27)
[2016-08-06] MEDS ORDERED: Naloxone 0.4 MG/ML INJ IVP PRN (00:27)
[2016-08-06] MEDS ORDERED: Pantoprazole 40 MG VIAL IVP STA (00:27)
[2016-08-06] MEDS ORDERED: 0.9 % Sodium Chloride 1,000 ML IVC SCH (00:30)
[2016-08-06] MEDS ORDERED: ALPRAZolam 1 MG TABLET PO PRN (00:36)
[2016-08-06] MEDS ORDERED: Benzonatate 100 MG CAPSULE PO PRN (00:43)
[2016-08-06] MEDS ORDERED: *HR* Dextrose 50 % in Water (Syg) 50 ML SYRINGE IVP PRN (00:43)
[2016-08-06] MEDS ORDERED: Dextrose Gel 15 GM PO PRN ×2 (00:43)
[2016-08-06] MEDS ORDERED: D5% in Water 1,000 ML IV PRN (00:43)
[2016-08-06] MEDS ORDERED: methylPREDNISolone 125 MG/2 ML VIAL IVP SCH (00:45)
[2016-08-06] MEDS ORDERED: NON-FORMULARY MEDICATION 1 EACH EACH (Oxygen [Oxygen] 2 L) IN SCH (00:45)
--- NOTE | 2016-08-06 00:47 | Internal Med History&Physical ---
Date of Encounter: 08/05/16 Time of Encounter: 23:45 Assessment and Plan (1) Acute on chronic respiratory failure with hypoxia and hypercapnia Status: Acute . (2) Tobacco abuse Status: Chronic . (3) SIRS (systemic inflammatory response syndrome) Status: Acute . (4) Acute bronchitis and bronchiolitis Status: Acute . (5) Diabetes mellitus Status: Chronic . Qualifiers: Diabetes mellitus type: type 2 Diabetes mellitus complication status: with neurologic complications Diabetes mellitus complication detail: with mononeuropathy Diabetes mellitus intermediate project manager insulin use: with intermediate project manager use Qualified Code(s): E11.41 - Type 2 diabetes mellitus with diabetic mononeuropathy; Z79.4 - terminal operations manager (current) use of insulin (6) Hypertension Status: Chronic . Qualifiers: Hypertension type: essential hypertension Qualified Code(s): I10 - Essential (primary) hypertension (7) Dyslipidemia Status: Chronic . (8) Hypothyroidism Status: Chronic . Qualifiers: Hypothyroidism type: acquired Qualified Code(s): E03.9 - Hypothyroidism, unspecified (9) Hypersensitivity pneumonitis Status: Acute . (10) COPD (chronic obstructive pulmonary disease) Status: Chronic . Qualifiers: COPD type: COPD with acute exacerbation Qualified Code(s): J44.1 - Chronic obstructive pulmonary disease with (acute) exacerbation (11) Insulin dependent diabetes mellitus Status: Chronic . (12) Acute exacerbation of chronic obstructive airways disease Status: Acute . (13) Acute kidney injury superimposed on chronic kidney disease Status: Acute . Internal Medicine - H&P: HPI Chief complaint: Difficulty in breathing Admitted From: Emergency Dept Plans for Post Hospital Care: Home History of present illness: Ms. Taveras is a 56 year old female patient is admitted to [facility] via the emergency department when she presented with a chief complaint of difficulty in breathing. Preliminary impression suggest continued exacerbation of chronic pulmonary disease complicated by acute on chronic bronchitis-bronchiolitis. The patient was visited and interviewed and examined. Cumulative laboratory and radiographic data base was reviewed, considered and discussed. Pertinent ancillary medical records including ECW and PCI documentation was reviewed and considered. Given the patient's presenting concerns, past medical history, clinical findings and symptoms, she is admitted at this time will undergo further evaluation and disposition. Orders were written as per the computerized physician order fulfillment specialist system.......................................................................... .................... Consultative opinions will be sought as clinical circumstances justify. Pain management needs will be addressed. Laboratory and radiographic data base will be updated as appropriate. Studies include: Cultures of blood and urine and sputum, cardiac injury panel, BNP, metabolic and hematologic panel, magnesium, phosphorus, ionized calcium, thyroid panel, lipid profile, A1c, C-peptide, CRP, sedimentation rate, respiratory infection profile, respiratory virus panel, blood gas, UA, UDS, lactic acid, serologies, etc. Precautions: Aspiration, fall, delirium protocol/surveillance initiated. Telemetry with continuous hemodynamic monitoring and pulse oximetry initiated. Empiric antibiotic coverage: Intravenous Rocephin and azithromycin pending culture data. Special studies: CT chest, chest x-ray, telemetry, EKG. Pulmonary toilet: Incentive spirometry, aerosol bronchodilator, mucolytic, antitussive, supplemental oxygen. Corticosteroid therapy. CPAP/BiPAP supplemental oxygen delivery. Aerosol Mucomyst therapy. Fluid and electrolyte repletion efforts will proceed. Careful attention to fluid balance and renal recovery will be emphasized. Avoidance of nephrotoxic exposure and adverse drug drug interaction in the setting of impaired renal function will be monitored closely. Acute coronary syndrome protocol/surveillance initiated. DVT and PUD prophylaxis initiated: PPI therapy, intermittent pneumatic cuffs. Subcutaneous heparin. Early ambulation will be encouraged. Immunization updates recommended. Influenza and pneumococcal vaccinations as part of ongoing preventative healthcare recommendations strongly recommended. Smoking cessation counseling briefly addressed. Patient accepts nicotine substitution during this admission.. Advanced care directive discussion briefly addressed. Patient does not declare any healthcare restrictions at this time. Cardiovascular risk appraisal and cardiovascular risk reduction efforts will be emphasized. Physical/ occupational therapy may be asked to evaluate patient's functional capacity and progress mobility if her circumstances justify. Sliding scale insulin coverage, ADA dietary restraint and schedule an as-needed basis fingerstick glucose assessments were initiated. Nutrition/diabetes education counseling may be considered as circumstances justify. Outpatient medication schedules will be reviewed, confirmed and facilitated as appropriate. Reconciliation of home treatments including adjustments, substitutions and reintroduction into the treatment regimen will address necessary maintenance therapies for chronic pre-existing medical conditions. Plan of care has been reviewed and discussed in detail with the patient. Questions addressed. Hospital course dictated byclinical findings, treatment response and potential consultative interventions. Patient is at risk for further acute clinical decline and morbidity given presenting chief complaints and comorbid conditions. Condition is serious. Prognosis is guarded. CODE STATUS is full. Past Med Surg Social Fam HX - Past Medical History Source: old records reviewed Medical history: arthritis, asthma, COPD, diabetes, GERD, GI bleed, hyperlipidemia, hypertension, kidney stones, migraine, osteoporosis, thyroid disease, other Psychiatric history: anxiety, depression, panic disorder, other - Past Surgical History Surgical History: cataract, colectomy, orthopedic, other, other - Social History Smoking Status: Former smoker Smokeless Tobacco Status: No Alcohol use: none Drug use: none Occupational status: unemployed Current living situation: Home - Independent, Home Activity Level: Independent ambulation, Mostly sedentary Recent Out of Country Travel Within the Last 8 Weeks: No Exposure or Possible Exposure to Illness During Travel: No - Family History Mother Living Status: Hx Family Cardiac Disorders: Yes (CHF) Hx Family Endocrine Disorder: Yes Father Living Status: Hx Family Cardiac Disorders: Yes (RI) Brother Living Status: Hx Family Cancer: Yes (Colon) Sister Name: Malena Braun Age: 70 Living Status: Still Living Hx Family Cardiac Disorders: Yes (HTN) Hx Family Respiratory Disorders: Yes (Asthma) Hx Family Cancer: Yes (Cancer of the ear, Several benign tumors removed.) Hx Family GI Disorders: Yes (Constipation) Hx Family Genitourinary Disorders: No Hx Family Endocrine Disorder: Yes (DM,) Hx Family Musculoskeletal Disorders: No Hx Family Neuromuscular Disorders: No Hx Family Neurologic Disorders: No Hx Family HEENT Disorders: No Hx Family Autoimmune Disorders: Yes (Rheumitoid Arthritis) Hx Family Reproductive Disorders: No Hx Family Psychosocial Disorders: Yes (Depression) Hx Family Medical Disorders: No Internal Medicine - H&P: Meds Albuterol Sulfate [Albuterol Inhaler] 2 puff IH Q4HR PRN 09/16/15 [History] Calcium Carbonate [Calcium] 1,000 mg PO BID 09/16/15 [History] FLUoxetine HCl [Prozac] 40 mg PO QAM 11/20/15 [History] Famotidine [Pepcid] 40 mg PO BID 11/20/15 [History] Fluticasone Propionate Nasal [Flonase] 50 mcg NS DAILY 11/20/15 [History] Gabapentin [Neurontin] 800 mg PO QID 11/20/15 [History] Metformin HCl [Glucophage] 1,000 mg PO BID 11/20/15 [History] Montelukast [Singulair] 10 mg PO HS 11/20/15 [History] Pravastatin Sodium [Pravachol] 80 mg PO DAILY 11/20/15 [History] Aspirin 81 mg PO DAILY 01/21/16 [History] Tiotropium [Spiriva] 18 mcg IH DAILY 01/21/16 [History] Fluticasone/Salmeterol [Advair 500-50 Diskus] 2 puff IH BID 03/16/16 [History] Ipratropium/Albuterol Neb [Duoneb] 3 ml IH TID 03/16/16 [History] Alprazolam [Xanax 1 MG Tablet] 1 mg PO DAILY PRN #7 tablet 05/23/16 [Rx] Omeprazole [PriLOSEC] 20 mg PO BIDAC #60 capsule. 05/23/16 [Rx] Oxygen 2 l IN CONT #1 each 05/23/16 [Rx] Cyclobenzaprine [Flexeril] 10 mg PO TID PRN 06/26/16 [History] Polyethylene Glycol 3350 [MiraLAX] 17 gm PO DAILY 06/26/16 [History] Propranolol HCl 40 mg PO BID 06/26/16 [History] Varenicline Tartrate [Chantix] 1 mg PO BID 06/26/16 [History] Zolpidem [Ambien] 5 mg PO HS 06/26/16 [History] HYDROcodone/Acet 10/325 mg [[place] 10-325 mg] 1 tab PO QID PRN 07/08/16 [History] Naproxen [Naprosyn] 500 mg PO BID PRN #14 tablet 07/13/16 [Rx] DiphenhydraMINE [Benadryl] 25 mg PO HS 08/05/16 [History] Insulin LISPRO [HumaLOG] 5 - 10 units SQ AD 08/05/16 [History] Meloxicam 15 mg PO DAILY 08/05/16 [History] Benzonatate [Tessalon] 200 mg PO TID PRN #40 capsule 08/06/16 [Rx] GuaiFENesin ER [Mucinex] 600 mg PO BID #20 tbbp.12hr 08/06/16 [Rx] Levofloxacin 750 mg PO DAILY #5 tablet 08/06/16 [Rx] PredniSONE 10 mg PO DAILY #80 tablet 08/06/16 [Rx] Allergies ketorolac [From Toradol] Allergy (Verified 07/13/16 10:01) Hives Sulfa (Sulfonamide Antibiotics) Allergy (Verified 07/13/16 10:01) Hives tramadol Allergy (Verified 07/13/16 10:01) Hives venom-wasp Allergy (Verified 07/13/16 10:01) Hives latex Adverse Reaction (Verified 07/13/16 10:01) Blister tape Allergy (Uncoded 08/05/16 23:36) Rash All Systems PM: A 10-system review of systems was performed and is negative for pertinent findings except as documented above in the HPI. - Constitutional Constitutional: as per HPI, no chills, no fever(s), no night sweats - EENT Eyes: as per HPI, no change in vision, no discharge, no pain, no photophobia Ears: no ear discharge, no ear pain, no tinnitus Nose, mouth and throat: as per HPI, nasal congestion, sinus pain, sinus pressure , no dysphagia, no nasal discharge, no neck pain, no sore throat - Cardiovascular Cardiovascular ROS IM: as per HPI, no chest pain, no diaphoresis, no dyspnea, no lightheadedness, no palpitations, no syncope - Respiratory Respiratory: as per HPI, cough, dyspnea, dyspnea on exertion, wheezing, chest congestion, excessive phlegm production, no hemoptysis - Gastrointestinal Gastrointestinal: as per HPI, no abdominal pain, no diarrhea, no hematemesis, no hematochezia, no melena, no nausea, no vomiting - Genitourinary Genitourinary: as per HPI, no change in urinary stream, no dysuria, no flank pain, no hematuria - Musculoskeletal Musculoskeletal ROS IM: as per HPI, no numbness, no tingling - Integumentary Integumentary IM: as per HPI, no rash, no unusual bruising - Neurological Neurological ROS: as per HPI, no confusion, no convulsions, no focal weakness, no numbness, no tingling, no tremor(s) - Psychiatric Psychiatric: as per HPI - Endocrine Endocrine IM: as per HPI - Hematologic/Lymphatic Hematologic/Lymphatic: as per HPI - Allergic/Immunologic Allergic/Immunologic: as per HPI - Constitutional Vitals: Temp Pulse Resp BP Pulse Ox 97.7 F 71 16 98/61 98 08/05/16 23:39 08/05/16 23:39 08/05/16 23:39 08/05/16 23:39 08/05/16 23:39 Vital Signs Temp Pulse Resp BP Pulse Ox 08/06/16 01:09 18 98 08/05/16 23:39 97.7 F 71 16 98/61 98 08/05/16 21:21 18 105/70 08/05/16 19:39 71 18 108/70 99 08/05/16 18:58 68 117/81 98 08/05/16 18:30 18 98 08/05/16 18:15 74 121/83 100 08/05/16 15:56 97.7 F 79 22 112/74 97 Intake and Output 08/05/16 08/05/16 08/06/16 15:59 23:59 07:59 Other: Weight 68.039 kg 69.173 kg Blood Glucose* 249 Allergies Allergy/AdvReac Type Severity Reaction Status Date / Time ketorolac [From Toradol] Allergy Hives Verified 07/13/16 10:01 Sulfa (Sulfonamide Allergy Hives Verified 07/13/16 10:01 Antibiotics) tramadol Allergy Hives Verified 07/13/16 10:01 venom-wasp Allergy Hives Verified 07/13/16 10:01 latex AdvReac Blister Verified 07/13/16 10:01 tape Allergy Rash Uncoded 08/05/16 23:36 General appearance: Present: disheveled, mild distress, A&O X 3, answers questions appropriately - Head Head exam: Present: atraumatic, normocephalic - Eye Eye exam: Present: EOMI, PERRL, conjuntiva pink, sclera anicteric Pupils: Present: normal accommodation, PERRL - ENT ENT exam: Present: mucous membranes moist, normal oropharynx - Neck Neck exam general surgery: Present: supple, trachea midline. Absent: lymphadenopathy - Respiratory Respiratory exam: Present: decreased breath sounds, CTAB, wheezes. Absent: accessory muscle use, rales, rhonchi - Cardiovascular Cardiovascular exam: Present: distant heart sounds, RRR, +S1, +S2. Absent: diastolic murmur, gallop, rubs, systolic murmur - GI/Abdominal GI/Abdominal exam: Present: normal bowel sounds, soft, no peritoneal signs. Absent: distended, tenderness - Extremities Exam Extremities exam: Present: warm, radial pulses palpable and symetrical. Absent : calf tenderness, cyanotic, pedal edema - Neurological Exam Neurological exam: Present: alert, CN II-XII intact, oriented X3, no focal deficits. Absent: pronater drift, facial droop, speech deficit - Psychiatric Psychiatric exam: Present: normal affect, normal mood - Skin Skin exam: Present: cyanosis, dry, intact, warm Internal Med - H&P Results - Labs CBC & Chem 7: 08/05/16 18:05 08/06/16 04:09 Labs: Vital Signs Temp Pulse Resp BP Pulse Ox 08/06/16 01:09 18 98 08/05/16 23:39 97.7 F 71 16 98/61 98 08/05/16 21:21 18 105/70 08/05/16 19:39 71 18 108/70 99 08/05/16 18:58 68 117/81 98 08/05/16 18:30 18 98 08/05/16 18:15 74 121/83 100 08/05/16 15:56 97.7 F 79 22 112/74 97 Intake and Output 08/05/16 08/05/16 08/06/16 15:59 23:59 07:59 Other: Weight 68.039 kg 69.173 kg Blood Glucose* 249 Short CBC 08/05/16 Range/Units 18:05 WBC 13.0 H (4.3-11.1) K/mcL Hgb 13.3 (11.5-15.4) g/dL Hct 43.0 (35.3-44.9) % Plt Count 410 H (140-400) K/mcL Neutrophils # 9.4 H (1.6-8.9) K/mcL BMP 08/05/16 Range/Units 18:05 Sodium 137 (136-145) mEq/L Potassium 4.0 (3.5-4.5) mEq/L Chloride 100 (98-109) mEq/L Carbon Dioxide 22 (19-29) mEq/L BUN 22 H (7-20) mg/dL Creatinine 1.29 H (0.57-1.11) mg/dL Glucose 223 H (70-99) mg/dL Calcium 9.6 (8.6-10.8) mg/dL Cardiac Enzymes 08/05/16 Range/Units 18:05 Troponin I 0.00 (0-0.03) ng/mL Abnormal lab results WBC 13.0 K/mcL (4.3-11.1) H 08/05/16 18:05 MCH 27.0 pg (28.0-33.3) L 08/05/16 18:05 MCHC 30.9 g/dL (31.6-35.5) L 08/05/16 18:05 RDW 15.5 % (11.5-14.5) H 08/05/16 18:05 Plt Count 410 K/mcL (140-400) H 08/05/16 18:05 Neutrophils # 9.4 K/mcL (1.6-8.9) H 08/05/16 18:05 ABG pCO2 49 mmHg (35-45) H 08/06/16 01:06 ABG pO2 52 mmHg (85-104) L 08/06/16 01:06 ABG Total CO2 27.3 mEq/L (20-26) H 08/06/16 01:06 ABG O2 Saturation 84 % (95-98) L 08/06/16 01:06 BUN 22 mg/dL (7-20) H 08/05/16 18:05 Creatinine 1.29 mg/dL (0.57-1.11) H 08/05/16 18:05 Est GFR ( Amer) 52 (> 60) L 08/05/16 18:05 Est GFR (Non-Af Amer) 43 (> 60) L 08/05/16 18:05 Glucose 223 mg/dL (70-99) H 08/05/16 18:05 Laboratory Last Values WBC 13.0 K/mcL (4.3-11.1) H 08/05/16 18:05 RBC 4.93 M/mcL (3.82-4.97) 08/05/16 18:05 Hgb 13.3 g/dL (11.5-15.4) 08/05/16 18:05 Hct 43.0 % (35.3-44.9) 08/05/16 18:05 MCV 87.2 fL (83.0-100.0) 08/05/16 18:05 MCH 27.0 pg (28.0-33.3) L 08/05/16 18:05 MCHC 30.9 g/dL (31.6-35.5) L 08/05/16 18:05 RDW 15.5 % (11.5-14.5) H 08/05/16 18:05 Plt Count 410 K/mcL (140-400) H 08/05/16 18:05 MPV 10.2 fL (9.4-12.4) 08/05/16 18:05 Immature Gran % 0.6 % (0-4) 08/05/16 18:05 Seg Neutrophils % 72.2 % 08/05/16 18:05 Lymphocytes % 20.2 % 08/05/16 18:05 Monocytes % 4.6 % 08/05/16 18:05 Eosinophils % 2.1 % 08/05/16 18:05 Basophils % 0.3 % 08/05/16 18:05 Neutrophils # 9.4 K/mcL (1.6-8.9) H 08/05/16 18:05 Lymphocytes # 2.6 K/mcL (0.6-4.6) 08/05/16 18:05 Monocytes # 0.6 K/mcL (0.0-1.3) 08/05/16 18:05 Eosinophils # 0.3 K/mcL (0.0-0.6) 08/05/16 18:05 Basophils # 0.0 K/mcL (0.0-0.2) 08/05/16 18:05 PT 9.4 Seconds (9.4-12.1) 08/05/16 18:05 INR 0.9 08/05/16 18:05 APTT 27.8 Seconds (26.0-36.0) 08/05/16 18:05 ABG pH 7.33 pH Units (7.32-7.45) 08/06/16 01:06 ABG pCO2 49 mmHg (35-45) H 08/06/16 01:06 ABG pO2 52 mmHg (85-104) L 08/06/16 01:06 ABG HCO3 25.8 mEQ/L (21-27) 08/06/16 01:06 ABG Total CO2 27.3 mEq/L (20-26) H 08/06/16 01:06 ABG O2 Saturation 84 % (95-98) L 08/06/16 01:06 ABG Base Excess -0.6 mEq/L (-2.0 to 3.0) 08/06/16 01:06 Blood Gas Modality NC 08/06/16 01:06 Inspired O2 28 % 08/06/16 01:06 Sodium 137 mEq/L (136-145) 08/05/16 18:05 Potassium 4.0 mEq/L (3.5-4.5) 08/05/16 18:05 Chloride 100 mEq/L (98-109) 08/05/16 18:05 Carbon Dioxide 22 mEq/L (19-29) 08/05/16 18:05 BUN 22 mg/dL (7-20) H 08/05/16 18:05 Creatinine 1.29 mg/dL (0.57-1.11) H 08/05/16 18:05 Est GFR ( Amer) 52 (> 60) L 08/05/16 18:05 Est GFR (Non-Af Amer) 43 (> 60) L 08/05/16 18:05 BUN/Creatinine Ratio 17 (6-26) 08/05/16 18:05 Glucose 223 mg/dL (70-99) H 08/05/16 18:05 Calculated Osmolality 294 (280-300) 08/05/16 18:05 Calcium 9.6 mg/dL (8.6-10.8) 08/05/16 18:05 Troponin I 0.00 ng/mL (0-0.03) 08/05/16 18:05 B-Natriuretic Peptide 32 pg/mL (0-100) 08/05/16 18:05 - Impressions Chest X-Ray 08/05/16 16:01 IMPRESSION: No acute cardiopulmonary process. D/ / 08/05/2016 16:40:14 Julian Mc MD / [email or web address] Interpreting Provider: Julian Mc MD - Attending Attestation My signature below is to certify that this patient is under my care and that I, or nurse practitioner, or a physician's loan officer assistant, or resident physician working with me, has had a [id number] encounter with this patient. 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) M47.812 Cough (Acute Medical) R05 Chronic pain (Chronic Medical) G89.29 Tobacco abuse (Chronic Medical) Z72.0 Acute and chronic respiratory failure (Acute Medical) J96.20 Dysuria (Resolved Medical) R30.0 Hematuria (Resolved Medical) R31.9 Failure of outpatient treatment (Acute Medical) Z78.9 SIRS (systemic inflammatory response syndrome) (Acute Medical) R65.10 Acute exacerbation of chronic obstructive airways disease (Acute Medical) J44.1 Acute exacerbation of chronic obstructive airways disease (Resolved Medical) Hypokalemia (Resolved Medical) Acute bronchitis and bronchiolitis (Acute Medical) Acute respiratory failure with hypoxia (Acute Medical) Diabetes mellitus (Chronic Medical) Hypertension (Chronic Medical) Dyslipidemia (Chronic Medical) Hypothyroidism (Chronic Medical) Partial small bowel obstruction (Acute Medical) Acute exacerbation of chronic obstructive pulmonary disease (Acute Medical) Hypoxia (Acute Medical) Eosinophilia (Chronic Medical) Hypersensitivity pneumonitis (Acute Medical) COPD (chronic obstructive pulmonary disease) (Chronic Medical) Insulin dependent diabetes mellitus (Chronic Medical) Chronic pain syndrome (Chronic Medical) Constipation (Chronic Medical) COPD exacerbation (Resolved Medical) Chronic respiratory failure with hypoxia (Chronic Medical) Acute exacerbation of chronic obstructive airways disease (Acute Medical) Community acquired pneumonia (Ruled-out Medical) Kidney stones (Resolved Medical) Constipation (Chronic Medical) Fibroid uterus (Acute Medical) DVT prophylaxis (Acute Medical) Acute exacerbation of chronic obstructive pulmonary disease (COPD) (Resolved Medical) Ankle sprain and strain (Inactive Medical) Back pain (Inactive Medical) Bronchitis (Inactive Medical) J40 COPD exacerbation (Inactive Medical) COPD exacerbation (Inactive Medical) COPD exacerbation (Inactive Medical) J44.1 COPD exacerbation (Inactive Medical) J44.1 COPD exacerbation (Inactive Medical) J44.1 Flank pain (Inactive Medical) R10.9 Flank pain (Inactive Medical) R10.9 Foot pain, left (Inactive Medical) M79.672 Hematuria (Inactive Medical) R31.9 Hypoglycemia associated with diabetes (Inactive Medical) Lower extremity edema (Inactive Medical) R60.0 Right foot sprain (Inactive Medical) S93.601A ED Activity Last Name: Nitin Status: Departed First Name: Lionel Priority: 2 Middle: [place] Condition: Fair Birthdate: 1960 Arrival Date/Time: 08/05/16 15:54 Age at Arrival: 56 Arrival Mode: Walk-In Sex: F Triaged At: 08/05/16 15:56 Language: Palauan Time Seen by Provider: 08/05/16 18:10 Stated Complaint: EMMANUEL-COPD Chief Complaint: ED Shortness of Breath/Dyspnea ED Location: [facility] ED Area: Station: Group: N ED Provider: Yashira Borja ED Midlevel Provider: Onesimo Null ED Nurse: Catia Bergeron Primary Care Provider: Rebecca Nguyễn Status/Phase DtTm/Value User/Action Admitted Observation Patient 08/05/16 22:40:24 Onesimo Null Ed Provider Yashira Borja Edit 08/05/16 21:12:27 Jun Hanna Attending Provider Mary Wing Admitting Provider Hailey Wing Pending Admission 08/05/16 21:12:06 Daemon,Background Referrals (Provider) Rebecca Nguyễn Deleted With Doctor 08/05/16 20:01:07 Catia Bergeron Ed Nurse Catia Bergeron Edit 08/05/16 19:25:12 Onesimo Null Midlevel Provider Onesimo Null Edit 08/05/16 18:22:55 Jojo Kohler Ed Nurse Jojo Kohler 08/05/16 18:22:13 Zelalem Baron Referrals (Provider) Rebecca Nguyễn Added 08/05/16 18:18:23 Zelalem Baron Midlevel Provider Zelalem Baron New Registered 08/05/16 16:04:31 Mary Mak Primary Care Provider Rebecca Nguyễn New Ed Provider Jojo Locke New Received 08/05/16 15:56 Antwon Tripp Chief Complaint ED Shortness of Breath/Dyspnea New 08/05/16 15:54:48 Rebecca Tomlin Stated Complaint EMMANUEL-COPD New Assessments and Treatments 12 lead ECG assessment Start: 08/05/16 16: 01 Freq: Status: Complete Document 08/05/16 18:19 AMP (Rec: 08/05/16 18:20 AMP [id number]) EKG Time EKG Completed 18:12 EKG performed by Doc MEDELLIN EKG shown to and signed by See Document 08/05/16 19:54 JRR (Rec: 08/05/16 19:54 JRR [id number]) EKG Time EKG Completed 18:12 EKG performed by dte Cardiac monitoring Start: 08/05/16 16: 01 Freq: .ONCE Status: Complete Document 08/05/16 18:15 AMP (Rec: 08/05/16 18:18 AMP [id number]) Cardiac Monitoring Heart Rate 73 Monitoring Method Telemetry Rhythm Sinus Rhythm Monitor Number 2 ED Discharge Assessment Start: 08/05/16 16: 01 Freq: Status: Active Document 08/05/16 21:21 NNN (Rec: 08/05/16 21:22 NNN [id number]) ED Discharge Assessment ED Discharge Disposition Admitted ED Condition on Discharge Fair Med Rec/Patient Pharmacy Completed? Yes: med rec tech completed Admitted to 3B Bed assigned 3B14 Transported by body shop technician Transported with oxygen Report given to Nurse Care transferred to (name/credentials) terminal superintendent Information relayed patient's care treatments medications given condition recent/anticipated changes Clinical Documentation Summary Provided Yes Pain Scale 5 Pain Scale Used Standard (1-10) Blood Pressure (mm Hg) 105/70 Heart rate 74 Respiratory Rate (breaths/min) 18 Oxygen Delivery Nasal Cannula Oxygen Saturation 96 Critical Care Minutes 0 ED Shortness of Breath Assessment Start: 08/05/16 16: 01 Freq: Status: Complete Document 08/05/16 18:15 AMP (Rec: 08/05/16 18:18 AMP [id number]) Shortness of Breath Sepsis Infection Criteria Present none Sepsis SIRS Criteria none Sepsis Screen No Definite Risk Sepsis Action Taken no action required Symptoms/Complaint Shortness of Breath Cough Onset 1 week ago Duration Constant Severity Moderate Context Recent Illness History/simular sympoms Known History COPD Improves With Nothing Worsens With Exertion Movement Coughing Associated Symptoms Cough Treatment Prior to Arrival Oxygen Bronchodilator Effort Short of Breath Anterior & Posterior Bilateral Throughout Breath Sounds Diminished Level Of Consciousness Awake Alert Appropriate Follows Commands Patient Orientation Person Place Time Name Age Date of Day of Month Day of Week Month Year Time of Day Patient Behavior Appropriate Cooperative Ability to Follow Directions Good Impaired Cognition No Skin Temperature Warm Skin Moisture Dry Skin Turgor Normal Capillary Refill < 3 Seconds ED Comment Pt states she was diagnosed with Bronchitis 1 week ago and has been on oral prednisone Family History-Meaningful Use Start: 08/05/16 23: 10 Freq: .Once Status: Active Document 08/05/16 23:10 BMD (Rec: 08/05/16 23:29 BMD [id number]) Family History-Meaningful Use Sister Name Malena Braun Age (years of age) 70 Race Living Status Still Living Hx Family Cardiac Disorders Yes: HTN Hx Family Respiratory Disorders Yes: Asthma Hx Family Cancer Yes: Cancer of the ear, Several benign tumors removed. Hx Family GI Disorders Yes: Constipation Hx Family Genitourinary Disorders No Hx Family Endocrine Disorder Yes: DM, Hx Family Musculoskeletal Disorders No Hx Family Neuromuscular Disorders No Hx Family Neurologic Disorders No Hx Family HEENT Disorders No Hx Family Autoimmune Disorders Yes: Rheumitoid Arthritis Hx Family Reproductive Disorders No Hx Family Psychosocial Disorders Yes: Depression Hx Family Medical Disorders No Glucose, blood point of care measurement Start: 08/05/16 23: 53 Freq: Status: Active Document 08/05/16 23:54 OJJ (Rec: 08/05/16 23:54 [id number] Blood Glucose Assessment Blood Glucose* 249 Action Taken rn aware Measure weight Start: 08/05/16 23: 10 Freq: Status: Active Document 08/05/16 23:39 OJJ (Rec: 08/05/16 23:53 OJJ [id number]) Height and Weight Height 1.57 m Weight 69.173 kg Weight Measurement Method Built in [facility] Body Mass Index (BMI) 28.05 BMI Classification Overweight Med Rec Tech Start: 08/05/16 22: 26 Freq: Status: Active Document 08/05/16 22:26 MRB (Rec: 08/05/16 22:26 MRB [id number]) Pharmacy Med Rec Tech Home Medicatons Reconciled? Yes Was this to catch up from previous day No Does patient take 10 or more medications Yes ? Does patient request medication No education Do home meds include Coumadin, Xarelto, No Pradaxa, Eliquis Added Patient Preferred Pharmacy Yes Verified Allergies Yes Would Patient Like to use [facility] No Patient Pharmacy Observation Admission Assessment Start: 08/05/16 23: 10 Freq: .once Status: Active Document 08/05/16 23:10 BMD (Rec: 08/05/16 23:29 BMD [id number]) General Questions Date of Arrival on Unit 08/05/16 Time of Arrival on Unit 23:20 Admitted From Emergency Dept Chief Complaint SOB, chest tightness History Provided By Patient Orientation To Call Light Bed Phone TV Bathroom Smoking Policy Visiting Hours Procedures ID Bracelet On Emergency Contact Name Gerson Mcknight Relationship to Patient Son Emergency Contact Bands applied ID band Patient Health Portal Patient was provided information on Yes accessing patient portal Patient Requests Portal Enrollment No Reason No Portal Enrollment Patient Already Enrolled Advance Directives Advance Directives Yes Advance Directives on File Yes Living Will No Power of Manager Developmental Yes Power of Manager Developmental Name David Carlisle Patient Rights Copy of Rights Given and Verbalizes Yes Understanding Tobacco Free [place]: Copy of S Yes Statement Given and Patient Verbalizes Understanding Communication Ability Preferred Language Palau[place] Wire Border 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 Required No Ability to Follow Directions Good Able to Read Yes Able to Write Yes Hearing Ability Normal Visual Assistive Devices Glasses Pain Assessment Do You Have Any Ongoing (Chronic) Pain Yes: Neck, back Problems What treatment or medications are you Vicodan 10mg qid receiving for pain management Educated on Pain Scale Yes Past Medical History Medical history arthritis asthma COPD diabetes GERD GI bleed hyperlipidemia kidney stones migraine osteoporosis thyroid disease other Female Surgical History cataract colectomy orthopedic, other other Psychiatric history anxiety depression panic disorder other Smoking Status Former smoker Smokeless Tobacco Status No Alcohol use none Drug use none Occupational status disabled Current living situation With Family Activity level Uses cane/walker Recent Out of Country Travel Within the No Last 8 Weeks Exposure or Possible Exposure to Illness No During Travel Functional Assessment Employment Status Disabled Community Services Used Prior to Oxygen Therapy Admission Eating (Feeding) Ability Independent Bathing Ability Independent Upper Body Dressing Ability Independent Lower Body Dressing Ability Independent Ambulation Ability Independent Toileting Ability Independent Bladder Continent Bowel Continent Normal Bowel Pattern Daily Date of Last Known Bowel Movement 08/05/16 Psychosocial Over Age 75 and Lives Alone or Over Age No 80 Potential Need for Follow-up Care (ECF, No Home Health, ECT) Developmentally Disabled or History of No Mental Health Problems 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 Need or No Terminal Implications Responsible for Care of Others No Financial Concerns No Suspected Abuse or Neglect No Suicidal or Homicidal Ideation No Social Service Consult Needed No Patient Belongings Start: 08/05/16 23: 10 Freq: .ONCE Status: Active Document 08/05/16 23:10 BMD (Rec: 08/05/16 23:29 BMD [id number]) Patient Belongings Belongings With Patient on Admission Yes In Patient Closet Patient Belongings Cell Phone Coat Dentures, Upper Dentures, Lower Jewelry [place] Pants Shirt Shoes Socks Undergarments Belongings Comment Ring x1, necklace, cell phone silk weaver Patient Rounding Start: 08/05/16 16: 01 Freq: Q30M Status: Active Document 08/05/16 18:15 AMP (Rec: 08/05/16 18:18 AMP [id number]) Patient Rounding Safety Call Light Within Reach Bed Position Low Bed Brake On Side Rails Up X1 Are the Floors Free From Trip Hazards? Yes Is the Room Free From Clutter? Yes Rounding Completed? Yes Patient Rounding Updated patient/family on Plan of Care Checked for Patient Positioning Patient Personal Items Placed Within Reach Checked Patient Pain Level Patient Awake Document 08/05/16 18:58 AMP (Rec: 08/05/16 19:00 AMP [id number]) Patient Rounding Safety Call Light Within Reach Bed Position Low Bed Brake On Side Rails Up X2 Are the Floors Free From Trip Hazards? Yes Is the Room Free From Clutter? Yes Rounding Completed? Yes Patient Rounding Updated patient/family on Plan of Care Checked for Patient Positioning Patient Personal Items Placed Within Reach Checked Patient Pain Level Patient Awake Patient Verbalizes Pain/Symptoms Yes Improvement Patient Rounding Start: 08/05/16 23: 10 Freq: Q1H Status: Active Document 08/05/16 23:39 OJJ (Rec: 08/05/16 23:53 OJJ [id number]) Hourly Rounding Hourly Rounding Checked for Patient Positioning Patient Personal Items Placed Within Reach Hourly Rounding Completed Yes Patient Awake Is family present? No Safety Call Light Within Reach Bed Position Low Phone Within Reach Bed Brake On Side Rails Up X2 Are the Floors Free From Trip Hazards? Yes Is the Room Free From Clutter? Yes Turn and Postion Bedrest No Turn Q 2HR No RT Continuous Pulse Oximetry Start: 08/05/16 16: 01 Freq: Status: Complete Document 08/05/16 18:18 AMP (Rec: 08/05/16 18:18 AMP [id number]) RT Respiratory Medication Delivery Start: 08/05/16 18: 30 Freq: Status: Complete Document 08/05/16 18:30 ANB (Rec: 08/05/16 18:31 ANB [id number]) Respiratory Therapy Pre Assessment SPO2 (95-100 %) 98 Heart rate 70 Respiratory Rate (breaths/min) 18 Oxygen Delivery Method Nasal Cannula O2 Flow Rate 2 Anterior & Posterior Bilateral Throughout Breath Sounds Inspiratory Wheezing Expiratory Wheezing Treatment Modality Nebulizer Therapy Respiratory Medications Duoneb Home/Other Medication x3 Medication Delivery Device Mask Treatment Tolerance Excellent Sub. Aerosol/MDI/DPI Treatment* Yes Respiratory Student completed [place] No Post RT Medication Delivery Post Heart rate 71 Post Respiratory Rate (breaths/min) 16 Anterior & Posterior Bilateral Throughout Post Breath Sounds Inspiratory Wheezing Expiratory Wheezing Treatment Outcome No Change Respiratory Therapy has recognized a No potential need for Home Oxygen Respiratory Therapy has recognized a No potential need for Home BIPAP/CPAP Comment NO COMPS Saline lock insertion/management Start: 08/05/16 16: 01 Freq: Status: Complete Document 08/05/16 18:30 AMP (Rec: 08/05/16 18:30 AMP [id number]) IV Insertion/Site Assessment IV Attempt 1 Successful Successful Blood drawn and sent to Lab No Right Antecubital IV Established KNUCKLER No Date of Insertion 08/05/16 Time of Insertion 18:30 Reason for IV Insertion Replace Lost Fluids Provide Access for IV Medication(s) IV Catheter Type Peripheral IV Gauge (gauge) 18 Site Observation Patent Dressing Applied Window Dressing Dry/Intact Patient Tolerance Tolerated Well Supplemental oxygen titration Start: 08/05/16 16: 01 Text: maintain oxygen saturation at 94% or greater Status: Complete Freq: .ONCE Document 08/05/16 18:15 AMP (Rec: 08/05/16 18:18 AMP [id number]) Oxygen Adminstration Oxygen Saturation (95-100 %) 100 Oxygen Delivery Method Nasal Cannula Flow Rate 2 Triage Start: 08/05/16 15: 56 Freq: Status: Complete Document 08/05/16 15:56 DLW (Rec: 08/05/16 16:01 DLW [id number]) Triage Chief Complaint triage ED Shortness of Breath/Dyspnea Patient Stated Complaint SOB HELENA 2 Onset (ago) Just KNUCKLER Description of Symptoms C/O SOB THAT STARTED 1 WK AGO THAT PT WAS SEEN BY PCP AND STARTED ON PREDNISONE THEN General Appearance alert Work Related Injury? No Mode of arrival ambulatory Source patient Limitations no limitations Temperature (97.6 F-99.6 F) 97.7 F Temperature Source Oral Pulse Rate (beats/min) 79 Respiratory Rate (breaths/min) 22 Blood Pressure (mm Hg) 112/74 O2 Sat by Pulse Oximetry (95-100 %) 97 Oxygen Delivery Room Air Height 1.57 m Weight 68.039 kg Weight Measurement Method Stated by Patient Pain Scale 0 Pain Scale Used Standard (1-10) Medical history arthritis asthma COPD diabetes GERD GI bleed hyperlipidemia kidney stones migraine osteoporosis thyroid disease other Female surgical history orthopedic, other other Additional surgical history PMH Tubal, plate in right wrist, 2 neck fusions, partial small intestines removed Psychiatric history anxiety depression panic disorder other Smoking Status Current every day smoker Smokeless Tobacco Status No Alcohol Use rarely Drug Use none Patient resides with/at Children Safety Concerns Feels Safe At This Time Do you currently feel hopless, have No thoughts of self harm, or thoughts of harming others History of fall in last 14 days? No Hx Last Menstrual Period N/A THEATER USHER history non-contributory bilateral tubal ligation Influenza vaccine up to date Yes Pneumonia vaccine up to date No Tetanus UTD no Coma Scale Eye Opening Spontaneous Coma Scale Motor Response Obeys Commands Coma Scale Verbal Response Oriented Coma Scale Total 15 Sister Family Member Living Status Hx Family Cardiac Disorders Yes: CHF Brother Family Member Living Status Hx Family Cancer Yes: Colon Father Family Member Living Status Hx Family Cardiac Disorders Yes: RI Mother Family Member Living Status Hx Family Cardiac Disorders Yes: CHF Vital Signs Assessment Start: 08/05/16 16: 01 Freq: Status: Active Document 08/05/16 18:15 AMP (Rec: 08/05/16 18:18 AMP [id number]) ED Vital Signs Pain Reported No Pain Reported Pain Scale 0 Pain Scale Used Standard (1-10) Blood Pressure (mm Hg) 121/83 Blood Pressure Location Left Arm Source Automatic Cuff Position Sitting Pulse Rate (beats/min) 74 Rhythm Regular Strength Normal Pulse Oximetry (95-100 %) 100 Oxygen Delivery Nasal Cannula Oxygen Flow Rate (LPM) 2 Document 08/05/16 18:58 AMP (Rec: 08/05/16 19:00 AMP [id number]) ED Vital Signs Pain Reported No Pain Reported Pain Scale 0 Pain Scale Used Standard (1-10) Blood Pressure (mm Hg) 117/81 Blood Pressure Location Right Arm Source Automatic Cuff Position Sitting Pulse Rate (beats/min) 68 Rhythm Regular Strength Normal Pulse Oximetry (95-100 %) 98 Oxygen Delivery Nasal Cannula Oxygen Flow Rate (LPM) 2 Document 08/05/16 19:39 NNN (Rec: 08/05/16 19:40 NNN [id number]) ED Vital Signs Pain Reported Pain Reported Pain Scale 6 Pain Scale Used Standard (1-10) Blood Pressure (mm Hg) 108/70 Pulse Rate (beats/min) 71 Respiratory Rate (breaths/min) 18 Pulse Oximetry (95-100 %) 99 Oxygen Delivery Nasal Cannula Oxygen Flow Rate (LPM) 2 Document 08/05/16 23:39 OJJ (Rec: 08/05/16 23:53 OJJ [id number]) Vital Signs with MEWS Temperature (97.6 F-99.6 F) 97.7 F Temperature Source Oral Pulse Rate (beats/min) 71 Respiratory Rate (breaths/min) 16 Pulse Oximetry (95-100 %) 98 Oxygen Delivery Room Air Blood Pressure (mm Hg) 98/61 Blood Pressure Location Left Arm Source Automatic Cuff Position Supine Neuro Status *recalled from last Alert documentation MEWS Score 2 Discharge ED Provider: Yashira Borja Status: Departed Time Seen by Provider: 08/05/16 18:10 Condition: Fair Triaged At: 08/05/16 15:56 Emergency Discharge Date/Time: 08/05/16 22:53 Emergency Discharge Disposition: Admitted As Inpatient Clinical Impression Acute exacerbation of chronic obstructive airways disease Emergency Discharge Comment: Admit Intervention Last Done ED Shortness of Breath Assessment 08/05/16 18:15 Query Result Sepsis Infection Criteria Present none Sepsis SIRS Criteria none Sepsis Screen No Definite Risk Sepsis Action Taken no action required Shortness Of Breath Symptoms/Complaint Shortness of Breath Cough Shortness Of Breath Onset 1 week ago Shortness Of Breath Duration Constant Shortness Of Breath Severity Moderate Shortness Of Breath Context Recent Illness History/simular sympoms Shortness Of Breath Known History COPD Shortness Of Breath Improves With Nothing Shortness Of Breath Worsens With Exertion Movement Coughing Shortness Of Breath Associated Symptoms Cough Shortness Of Breath Treatments Prior to Oxygen Arrival Bronchodilator Respiratory Effort Short of Breath Anterior & Posterior Bilateral Throughout -Breath Sounds Diminished Level Of Consciousness Awake Alert Appropriate Follows Commands Patient Orientation Person Place Time Name Age Date of Day of Month Day of Week Month Year Time of Day Patient Behavior Appropriate Cooperative Ability to Follow Directions Good Impaired Cognition No Skin Temperature Warm Skin Moisture Dry Skin Turgor Normal Capillary Refill < 3 Seconds ED Comment Pt states she was diagnosed with Bronchitis 1 week ago and has been on oral prednisone ED Discharge Assessment 08/05/16 21:21 Query Result ED Discharge Disposition Admitted ED Condition on Discharge Fair Med Rec/Patient Phamracy completed? Yes: med rec tech completed ED Admit to 3B Bed assigned 3B14 Transported by body shop technician Transported with oxygen Report given to Nurse Care transferred to terminal superintendent Information relayed patient's care treatments medications given condition recent/anticipated change Clinical Documentation Summary Provided Yes Severity scale (1-10) 5 Pain Scale Used Standard (1-10) Blood Pressure 105/70 Heart rate 74 Respiratory Rate 18 Oxygen Delivery Nasal Cannula Pulse Oximetry Reading 96 Critical Care Minutes 0 Observation Discharge Date/Time: Observation Discharge Disposition: Observation Discharge Comment: Instructions: Stand-Alone Forms: Prescriptions: Visit Report - Forms: - Referrals:
[2016-08-06] MEDS: *HR* OxyCODONE Immed Rel 5 MG TABLET PO PRN ×2 (00:56→09:31)
[2016-08-06] MEDS: MethylPREDNISolone 40 MG/ML VIAL IVP SCH ×3 (00:57→12:40)
[2016-08-06] MEDS: Nicotine 21 MG PATCH.TD24 TD SCH ×2 (00:57→09:30)
[2016-08-06] MEDS ORDERED: Azithromycin 500 MG in D5% in Water 250 ML IVPB SCH (01:00)
[2016-08-06] MEDS: Ipratropium/Albuterol Neb 3 ML IH SCH ×3 (01:08→10:42)
[2016-08-06 01:36] LABS: ABG Base Excess -0.6 mEq/L (-2.0 to 3.0); ABG HCO3 25.8 mEQ/L (21-27); ABG Oxygen Saturation 84 % (95-98); ABG PCO2 49 mmHg (35-45); ABG PH 7.33 pH Units (7.32-7.45); ABG PO2 52 mmHg (85-104); ABG TCO2 27.3 mEq/L (20-26)
[2016-08-06 01:37] LABS: Blood Gas FiO2 28 %
[2016-08-06] MEDS ORDERED: Insulin LISPRO 300 UNITS/3 ML VIAL SQ STA (04:00)
[2016-08-06 04:34] LABS: Hemoglobin A1C 6.6 %
[2016-08-06 04:36] LABS: Alanine Aminotransferase 11 Units/L (0-55); Albumin 3.2 g/dL (3.5-5.0); Albumin/Globulin Ratio 1.1 (1.1-2.2); Alkaline Phosphatase 50 Units/L (38-126); Aspartate Amino Transferase 8 Units/L (5-34); BUN/Creatinine Ratio 27 (6-26); Bilirubin,Total 0.2 mg/dL (0.2-1.2); Blood Urea Nitrogen 23 mg/dL (7-20); Calcium 8.3 mg/dL (8.6-10.8); Carbon Dioxide 22 mEq/L (19-29); Chloride 106 mEq/L (98-109); Chol/HDL Ratio 3.8 (0-4.9); Cholesterol 179 mg/dL (< 200); Globulin 2.9 g/dL (2.4-3.5); Glucose 210 mg/dL (70-99); HDL Cholesterol 47 mg/dL (40-59); LDL Cholesterol,Calculated 108 mg/dL (0-99); Magnesium 1.4 mg/dL (1.6-2.6); Osmolality,Calculated 294 (280-300); Phosphorous 2.5 mg/dL (2.3-4.7); Potassium 4.4 mEq/L (3.5-4.5); Sodium 137 mEq/L (136-145); Total Protein 6.1 g/dL (6.0-8.3); Triglycerides 122 mg/dL (< 150); eGFR For African Americans > 60 (> 60); eGFR For Non-African Americans > 60 (> 60)
[2016-08-06 05:30] LABS: Adenovirus Not Detected (Not Detect); Bordetella Pertussis Not Detected (Not Detect); Chlamydophila pneumoniae Not Detected (Not Detect); Coronavirus 229E Not Detected (Not Detect); Coronavirus HKU1 Not Detected (Not Detect); Coronavirus NL63 Not Detected (Not Detect); Coronavirus OC43 Not Detected (Not Detect); Human Metapneumovirus Not Detected (Not Detect); Human Rhinovirus/Enterovirus Not Detected (Not Detect); Influenza A Subtype 2009 H1 Not Detected (Not Detect); Influenza A Untypeable Not Detected (Not Detect); Influenza B Not Detected (Not Detect); Mycoplasma pneumoniae Not Detected (Not Detect); Parainfluenza Virus 1 Not Detected (Not Detect); Parainfluenza Virus 2 Not Detected (Not Detect); Parainfluenza Virus 3 Not Detected (Not Detect); Parainfluenza Virus 4 Not Detected (Not Detect); Respiratory Syncytial Virus Not Detected (Not Detect)
[2016-08-06] MEDS ORDERED: *HR* Enoxaparin 40 MG/0.4 ML SYRINGE SQ SCH (06:00)
[2016-08-06] MEDS ORDERED: Piperacillin/Tazobactam 3.375 GM in D5% in Water (Mini-Bag+) 100 ML IVPB SCH (08:00)
[2016-08-06] MEDS ORDERED: Famotidine 20 MG TABLET PO SCH (09:00)
[2016-08-06] MEDS ORDERED: FLUoxetine 20 MG CAPSULE PO SCH (09:00)
[2016-08-06] MEDS ORDERED: Fluticasone Propionate Nasal 50 MCG/SPRAY BOTTLE NS SCH (09:00)
[2016-08-06] MEDS ORDERED: NON-FORMULARY MEDICATION 1 EACH EACH (Famotidine [Pepcid] 40 MG) PO SCH (09:00)
[2016-08-06] MEDS ORDERED: Aspirin 81 MG TAB.CHEW PO SCH (09:00)
[2016-08-06] MEDS: Insulin LISPRO 300 UNITS/3 ML VIAL SQ SCH ×2 (09:08→12:32)
[2016-08-06] MEDS: Gabapentin 400 MG CAPSULE PO SCH ×2 (09:30→12:40)
--- NOTE | 2016-08-06 10:30 | Discharge Summary ---
Date of Encounter: 08/06/16 Time of Encounter: 09:30 - Discharge Diagnosis (1) Acute exacerbation of chronic obstructive airways disease Priority: Primary Status: Resolved Comments: Patient states she is back on her baseline on day of discharge, will initiate 60 mg, 2-3 week prednisone taper at discharge (2) Bronchitis Priority: Primary Status: Acute (3) Hyperlipemia Priority: Secondary Status: Chronic Comments: Lipid panel unremarkable, recommend continue high-dose statin and low- cholesterol diet Qualifiers: Hyperlipidemia type: unspecified Qualified Code(s): E78.5 - Hyperlipidemia , unspecified (4) History of smoking Priority: Secondary Status: Resolved (5) DVT prophylaxis Priority: Primary Status: Acute Comments: Subcutaneous Lovenox while admitted (6) Anxiety Priority: Secondary Status: Chronic Comments: Mood and affect stable on day of discharge (7) Depression Priority: Secondary Status: Chronic Qualifiers: Depression Type: unspecified Qualified Code(s): F32.9 - Major depressive disorder, single episode, unspecified (8) Acute and chronic respiratory failure Priority: Secondary Status: Chronic Comments: Patient is on 2 L per nasal cannula as needed at home, 2 L per nasal cannula while admitted. Qualifiers: Respiratory failure complication: unspecified whether with hypoxia or hypercapnia Qualified Code(s): J96.20 - Acute and chronic respiratory failure , unspecified whether with hypoxia or hypercapnia (9) Failure of outpatient treatment Priority: Primary Status: Acute Comments: She was seen by her primary care provider last week who started her on 20 mg of prednisone that patient states did not help. She is currently back to her baseline (10) Hypertension Priority: Secondary Status: Chronic Comments: Controlled, follow-up outpatient (11) Hypothyroidism Priority: Secondary Status: Chronic Comments: TSH normal earlier this month (12) Insulin dependent diabetes mellitus Priority: Secondary Status: Chronic Comments: Controlled at home with an A1c of 6.6%, follow-up outpatient (13) Chronic pain syndrome Priority: Secondary Status: Chronic (14) JUSTIN (acute kidney injury) Priority: Primary Status: Resolved - Discharge Medications Prescriptions: Benzonatate [Tessalon] 200 mg PO TID PRN #40 capsule PRN Reason: Cough GuaiFENesin ER [Mucinex] 600 mg PO BID #20 tbbp.12hr Levofloxacin 750 mg PO DAILY #5 tablet PredniSONE 10 mg PO DAILY #80 tablet Home Medications: Albuterol Sulfate [Albuterol Inhaler] 2 puff IH Q4HR PRN 09/16/15 [History] Calcium Carbonate [Calcium] 1,000 mg PO BID 09/16/15 [History] FLUoxetine HCl [Prozac] 40 mg PO QAM 11/20/15 [History] Famotidine [Pepcid] 40 mg PO BID 11/20/15 [History] Fluticasone Propionate Nasal [Flonase] 50 mcg NS DAILY 11/20/15 [History] Gabapentin [Neurontin] 800 mg PO QID 11/20/15 [History] Metformin HCl [Glucophage] 1,000 mg PO BID 11/20/15 [History] Montelukast [Singulair] 10 mg PO HS 11/20/15 [History] Pravastatin Sodium [Pravachol] 80 mg PO DAILY 11/20/15 [History] Aspirin 81 mg PO DAILY 01/21/16 [History] Tiotropium [Spiriva] 18 mcg IH DAILY 01/21/16 [History] Fluticasone/Salmeterol [Advair 500-50 Diskus] 2 puff IH BID 03/16/16 [History] Ipratropium/Albuterol Neb [Duoneb] 3 ml IH TID 03/16/16 [History] Alprazolam [Xanax 1 MG Tablet] 1 mg PO DAILY PRN #7 tablet 05/23/16 [Rx] Omeprazole [PriLOSEC] 20 mg PO BIDAC #60 capsule. 05/23/16 [Rx] Oxygen 2 l IN CONT #1 each 05/23/16 [Rx] Cyclobenzaprine [Flexeril] 10 mg PO TID PRN 06/26/16 [History] Polyethylene Glycol 3350 [MiraLAX] 17 gm PO DAILY 06/26/16 [History] Propranolol HCl 40 mg PO BID 06/26/16 [History] Varenicline Tartrate [Chantix] 1 mg PO BID 06/26/16 [History] Zolpidem [Ambien] 5 mg PO HS 06/26/16 [History] HYDROcodone/Acet 10/325 mg [[place] 10-325 mg] 1 tab PO QID PRN 07/08/16 [History] Naproxen [Naprosyn] 500 mg PO BID PRN #14 tablet 07/13/16 [Rx] DiphenhydraMINE [Benadryl] 25 mg PO HS 08/05/16 [History] Insulin LISPRO [HumaLOG] 5 - 10 units SQ AD 08/05/16 [History] Meloxicam 15 mg PO DAILY 08/05/16 [History] Benzonatate [Tessalon] 200 mg PO TID PRN #40 capsule 08/06/16 [Rx] GuaiFENesin ER [Mucinex] 600 mg PO BID #20 tbbp.12hr 08/06/16 [Rx] Levofloxacin 750 mg PO DAILY #5 tablet 08/06/16 [Rx] PredniSONE 10 mg PO DAILY #80 tablet 08/06/16 [Rx] Allergies/Adverse Reactions: Allergies ketorolac [From Toradol] Allergy (Verified 07/13/16 10:01) Hives Sulfa (Sulfonamide Antibiotics) Allergy (Verified 07/13/16 10:01) Hives tramadol Allergy (Verified 07/13/16 10:01) Hives venom-wasp Allergy (Verified 07/13/16 10:01) Hives latex Adverse Reaction (Verified 07/13/16 10:01) Blister tape Allergy (Uncoded 08/05/16 23:36) Rash Date of admission: 08/05/16 21:11 Primary care physician: Rebecca Nguyễn MD Consults: 08/06/16 00:27 Consult to Nurse Navigator [CONS] Routine Comment: Discharging clinician: Mali Gamez Anticipated date of discharge: 08/06/16 - Patient Status Disposition: Home, Self-Care Condition: Fair Functional capacity at discharge: independent ambulation Overall status at discharge: patient is back to baseline - Discharge Instructions Follow Up With: Rebecca Nguyễn MD [Primary Care Provider] - Additional Instructions: Follow-up with primary care provider in one to 2 weeks - Diet and Activity Activity: increase activity as tolerated Diet: diabetic diet, low fat, low cholesterol, low salt diet Hospital course: Ms. Taveras is a 56 year old female with past medical history of COPD on 2 L per nasal cannula as needed at home, former tobacco abuse, IDDM, GERD, GI bleed, hyperlipidemia, hypertension, kidney stones, migraines, hypothyroidism, panic disorder. Patient presented to the emergency department chief complaint difficulty breathing since last week. She was seen by her primary care provider and was started on 20 mg of prednisone daily but stated she did not feel any better prompting her presentation to the emergency department. Workup in the emergency department unremarkable. Chest x-ray negative. Patient was admitted to the hospitalist service for further evaluation and management. She was treated for COPD exacerbation during her one night admission. On day of discharge, she denied shortness of breath above her norm and felt she was at her baseline. At home, she is on 2 L per nasal cannula as needed, she was on 2 L while admitted. We will send her home on a 3 week steroid taper starting at 60 mg daily. She is discharged home in stable condition with close outpatient follow-up recommended. ITS Impressions Chest X-Ray 08/05/16 16:01 IMPRESSION: No acute cardiopulmonary process. D/ / 08/05/2016 16:40:14 Julian Mc MD / [email or web address] Interpreting Provider: Julian Mc MD - Time Spent with Patient Total time spent providing and/or coordinating discharge services: - Constitutional Vitals: Temp Pulse Resp BP Pulse Ox 97.7 F 83 17 110/73 97 08/06/16 08:31 08/06/16 08:31 08/06/16 08:31 08/06/16 08:31 08/06/16 09:40 General appearance: Present: A&O X 3, pleasant, no acute distress, answers questions appropriately - Head Head exam: Present: atraumatic, normocephalic - Eye Eye exam: Present: PERRL, conjuntiva pink, sclera anicteric Pupils: Present: PERRL - Neck Neck exam general surgery: Present: supple, trachea midline. Absent: lymphadenopathy - Respiratory Respiratory exam: Present: accessory muscle use (mild; baseline), decreased breath sounds, prolonged expiratory phase, wheezes. Absent: rales, respiratory distress, rhonchi - Cardiovascular Cardiovascular exam: Present: RRR, +S1, +S2. Absent: diastolic murmur, gallop, rubs, systolic murmur - GI/Abdominal GI/Abdominal exam: Present: normal bowel sounds, soft, no peritoneal signs. Absent: distended, tenderness - Extremities Exam Extremities exam: Present: warm, radial pulses palpable and symetrical. Absent : calf tenderness, cyanotic, pedal edema - Neurological Exam Neurological exam: Present: alert, CN II-XII intact, normal gait, oriented X3, no focal deficits, strengths equal and symetr throughout. Absent: pronater drift, facial droop, speech deficit - Skin Skin exam: Present: dry, intact, normal color, warm - VTE Documentation of Mechanical Device: Graduated compression elastic hosiery
[2016-08-06 10:55] VITALS: BP 104/75
--- NOTE | 2016-08-06 15:52 | Electrocardiograph Report ---
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
[2016-08-06] MEDS ORDERED: Insulin DETEMIR 100 UNIT/ML X5UNITS SQ SCH (21:00)
[2016-08-06] MEDS ORDERED: Insulin LISPRO 300 UNITS/3 ML VIAL SQ SCH (21:00)
== END 2016-08-06 13:46 | disposition home or self-care (01) ==
LOC: EMEROO 15:54 → 3BNU 15:54 → SUATTDRO 21:11 → 3BNU 22:53
PROVIDERS: ADMIT Internal Medicine; ATTEND Nurse Practitioner Family